=== PATIENT | male | born 1960 | race Caucasian/White ===

== ENCOUNTER 2020-06-30 13:03 | Outpatient (REF) | payer MEDICARE, MEDICAID, SELFPAY | END 2020-06-30 13:04 | disposition home or self-care (01) | LOC: HO.HMGCLDS 13:03 | PROVIDERS: PCP Internal Medicine; Visit Provider Internal Medicine | DX: Z20.828 Contact with and (suspected) exposure to other viral communicable diseases (principal) | CPT/HCPCS: C9803; U0003 ==

== ENCOUNTER 2021-09-26 20:29 | Inpatient (IN) | payer OTHER, MEDICARE, MEDICAID, SELFPAY ==
--- NOTE | ~2021-09-26 | XR_ITS ---
EXAMINATION: XR CHEST CLINICAL INFORMATION: Line placement COMPARISON: None TECHNIQUE: Frontal view of the chest was obtained. XR/XR chest 1V FINDINGS/IMPRESSION: Left internal jugular central venous catheter terminates in the mid SVC near the superior cavoatrial junction. No pneumothorax. Normal heart size and pulmonary vascularity. Lungs are clear. No pleural effusion. No acute or suspicious osseous abnormalities.
--- NOTE | ~2021-09-26 | CT_ITS ---
EXAMINATION CT ABDOMEN/PELVIS WITHOUT AND WITH CONTRAST [GI BLEEDING STUDY] CLINICAL INFORMATION: Maroon stool COMPARISON: None. TECHNIQUE: Multidetector volumetric CT imaging of the abdomen and pelvis was performed proceeding the administration of intravenous contrast. Subsequently imaging of the abdomen and pelvis was performed after the administration of 80 mL Omnipaque 350 without immediate adverse reactions. Postcontrast images were acquired during the arterial and delayed phases. Coronal and sagittal reformats were reviewed. This CT examination was performed using dose optimization techniques as appropriate, variously including the following: *Automated exposure control *Adjustment of mA and/or kV according to patient size (this includes techniques or standardized protocols for targeted exams where dose is matched to indication/reason for exam; i.e. extremities or head) *Use of iterative reconstruction technique DLP: 1078 mGy-cm FINDINGS: IMAGED THORAX: Trace bilateral pleural effusions and accompanying pleural thickening and pleural parenchymal scarring versus atelectasis, likely chronic. Cardiomegaly. GASTROINTESTINAL: No source of active gastrointestinal bleeding is identified. A gastrostomy tube is present within the stomach. Circumferential edematous wall thickening of the distal esophagus suspected suggestive of esophagitis. Small and large bowel are unremarkable. Cecum present in the right upper quadrant. Normal appendix. HEPATOBILIARY: Liver normal in size, contour and morphology. No suspicious lesions. No intra or extrahepatic biliary dilation. Gallbladder unremarkable. PANCREAS: Fatty atrophy. No inflammation or mass. SPLEEN: Unremarkable. ADRENAL GLANDS: Unremarkable. KIDNEYS, URETERS AND BLADDER: Nephroureteral stent present within the right kidney. The stent enters the bladder anteriorly suggesting ureteral reimplantation. No hydronephrosis. No suspicious renal cysts or masses. Mild thickening of the right renal pelvic urothelium likely relates to chronic irritation from the indwelling nephroureteral stent. No urinary calculi. Diffuse mild bladder wall thickening likely relates to chronic detrussor hypertrophy. PELVIC VISCERA: Prostatomegaly. Seminal vesicles unremarkable. LYMPH NODES: No lymphadenopathy. PERITONEUM/BODY WALL: Unremarkable. VASCULAR STRUCTURES: Aorta is mildly atherosclerotic. No aneurysm. Patent vascular structures. OSSEOUS STRUCTURES: No acute or suspicious osseous abnormalities. Right bipolar hemiarthroplasty. 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 Chronic appearing compression fractures at T11, T12, L1, L2 and L5 with mild endplate compression deformities of the remaining imaged lumbar levels. The fracture at T12 resulting in 75% height loss anteriorly CT/CT gi bleed abd pel wo/w con IMPRESSION: * No site of active gastrointestinal bleeding is identified. * Gastrostomy tube appropriately positioned within the gastric antrum. * Findings suggestive of esophagitis. * Right nephroureteral stent with previous right ureteral reimplantation to the anterosuperior bladder. * Additional chronic findings as above.
[2021-09-26 20:41] VITALS: BP 117/49; BP 98/53; PULSE 68; PULSE 76; RESP 18; TEMP 36.7; O2SAT 100; O2SAT 99; BMI 20.2
--- NOTE | 2021-09-26 20:41 | ECG_ITS ---
Test Reason : GI BLEED Blood Pressure : / mmHG Vent. Rate : 074 BPM Atrial Rate : 074 BPM P-R Int : 132 ms QRS Dur : 076 ms QT Int : 400 ms P-R-T Axes : 065 056 088 degrees QTc Int : 444 ms Normal sinus rhythm T wave abnormality, consider anterior ischemia Abnormal ECG No previous ECGs available Referred By: Elba Harvey Electronically Signed By:ALEX NELSON MD
--- NOTE | 2021-09-26 21:01 | ED.GIBLEED ---
HPI - GI Bleed General Chief complaint: GI Bleed <Elba Harvey NP - Last Filed: 09/27/21 01:59> Stated complaint: GI BLEED? <Elba Harvey NP - Last Filed: 09/27/21 01:59> Time Seen by Provider: 09/26/21 20:38 <Elba Harvey NP - Last Filed: 09/27/21 01:59> Source: patient and EMS <Elba Harvey NP - Last Filed: 09/27/21 01:59> Mode of arrival: EMS <Elba Harvey NP - Last Filed: 09/27/21 01:59> Limitations: no limitations <Elba Harvey NP - Last Filed: 09/27/21 01:59> History of Present Illness HPI Narrative: 61-year-old male with a history of pulmonary fibrosis status post bilateral lung transplant greater than 10 years ago on tacrolimus/atovaquone/prednisone 5mg daily, pulmonary embolism on Eliquis, chronic kidney disease, tongue and throat cancer status post radiation with G-tube placement, hypothyroidisim here with complaints one episode of bloody stool just [employer] DES[employer]. Patient denies abdominal pain. Patient did have 1 episode of vomiting earlier today during his feeding via G-tube but denies any bloody or coffee-ground colored emesis. Patient denies any fevers or chills. Tells me that he felt like he needed to move his bowels and when he got to the bathroom he realized he had been incontinent of a large amount of bloody stool. He felt very dizzy and lightheaded and called his to help him lower himself to the ground. EMS was called shortly after. Of note patient was recently discharged from [facility] on September 07 after being admitted for 5 weeks for radiation therapy, s/p GT placement d/t malnutrition, feeding difficulties. <Elba Harvey NP - Last Filed: 09/27/21 01:59> Related Data Home medications: Home Medications Medication Instructions Recorded Confirmed apixaban 5 mg tablet (Eliquis) 1 tab PO BID 09/26/21 09/27/21 calcitriol 0.25 mcg capsule 1 cap PO DAILY 09/26/21 09/27/21 clobetasol 0.05 % topical ointment 1 applic TOPICAL BID 09/26/21 09/27/21 famotidine 20 mg tablet 1 tab PO DAILY 09/26/21 09/27/21 levothyroxine 112 mcg tablet 1 tab PO DAILY 09/26/21 09/27/21 lorazepam 0.5 mg tablet 1 tab PO DAILY 09/26/21 09/27/21 prednisone 5 mg tablet 1 tab PO DAILY 09/26/21 09/27/21 tacrolimus 1 mg capsule, 1 cap PO Q8-10H 09/26/21 09/27/21 immediate-release <Elba Harvey NP - Last Filed: 09/27/21 01:59> Allergies/Adverse reactions: Allergies Allergy/AdvReac Type Severity Reaction Status Date / Time meperidine [From DEMEROL] Allergy Intermediate HEADACHES Unverified 09/26/21 21:55 <Elba Harvey NP - Last Filed: 09/27/21 01:59> Review of Systems Review of Systems: Yes all other systems are reviewed and are negative <Elba Harvey NP - Last Filed: 09/27/21 01:59> Constitutional: Constitutional: Reports no additional constitutional complaints, Denies body ache(s), Denies chills, Denies fever(s), Denies headache(s) and Denies weakness <Elba Harvey NP - Last Filed: 09/27/21 01:59> Eyes: Eyes: Reports no additional eye complaints and Denies change in vision <Elba Harvey NP - Last Filed: 09/27/21 01:59> ENT: Reports system reviewed and no additional complaints, except as documented, Denies dizziness, Denies headache(s), Denies nasal congestion, Denies nasal discharge and Denies neck pain <Elba Harvey NP - Last Filed: 09/27/21 01:59> Cardiovascular: Cardiovascular: Reports no additional cardiovascular complaints, Denies chest pain, Denies leg edema and Denies dyspnea <Elba Harvey NP - Last Filed: 09/27/21 01:59> Respiratory: Respiratory: Reports no additional respiratory complaints, Denies cough and Denies dyspnea <Elba Harvey NP - Last Filed: 09/27/21 01:59> Gastrointestinal: Gastrointestinal: Reports no additional gastrointestinal complaints, Denies abdominal pain, Denies diarrhea, Denies nausea and Denies vomiting <Elba Harvey NP - Last Filed: 09/27/21 01:59> Genitourinary: Genitourinary: Denies urinary incontinence <Elba Harvey NP - Last Filed: 09/27/21 01:59> Musculoskeletal: Musculoskeletal: Reports no additional musculoskeletal complaints, Denies back pain, Denies arthralgias, Denies joint swelling, Denies neck pain, Denies numbness and Denies tingling <Elba Harvey NP - Last Filed: 09/27/21 01:59> Integumentary/Breasts: Skin/Breast: Reports system reviewed and no additional complaints, except as docu and Denies rash <Elba Harvey NP - Last Filed: 09/27/21 01:59> Neurologic: Reports system reviewed and no additional complaints, except as documented, Denies Abnormal speech present, Denies dizziness, Denies headache(s), Denies numbness, Denies tingling and Denies weakness <Elba Harvey NP - Last Filed: 09/27/21 01:59> [facility] Past Medical History Attestation statement: The following information was validated with the patient. <Elba Harvey NP - Last Filed: 09/27/21 01:59> Source: old records reviewed and nursing notes reviewed <Elba Harvey NP - Last Filed: 09/27/21 01:59> Social History Social History: Social History Advance Directives: No Advance Directives Information Provided: No <STEPHANIE Emanuel Last Filed: 09/27/21 01:59> Physical Exam Vital Signs: Vital Signs: Last Vital Signs Temp 97.3 F 09/27/21 00:30 Pulse 77 09/27/21 00:50 Resp 16 09/27/21 00:50 BP 103/45 L 09/27/21 00:50 Pulse Ox 100 09/27/21 00:50 BMI result Body Mass Index 20.2 <Elba Harvey NP - Last Filed: 09/27/21 01:59> Vital Signs: Last Vital Signs Temp 97.3 F 09/27/21 00:30 Pulse 77 09/27/21 00:50 Resp 16 09/27/21 00:50 BP 103/45 L 09/27/21 00:50 Pulse Ox 100 09/27/21 00:50 BMI result Body Mass Index 20.2 <Colton Ac MD - Last Filed: 09/27/21 01:44> Const: General: cooperative, healthy appearing, comfortable and no acute distress <Elba Harvey NP - Last Filed: 09/27/21 01:59> Orientation/consciousness: patient oriented x3 <Elba Harvey NP - Last Filed: 09/27/21 01:59> Limitations: no limitations <Elba Harvey NP - Last Filed: 09/27/21 01:59> HENMT: Head: Yes normal to inspection <Elba Harvey NP - Last Filed: 09/27/21 01:59> Ears: hearing grossly normal bilaterally <Elba Harvey NP - Last Filed: 09/27/21 01:59> General nose exam: Normal external nose present <Elba Harvey NP - Last Filed: 09/27/21 01:59> Face and sinus: Yes normal facial exam <Elba Harvey NP - Last Filed: 09/27/21 01:59> Mouth: Normal oral and palatal mucosa present <Elba Harvey NP - Last Filed: 09/27/21 01:59> Throat: Yes posterior oropharynx normal <Elba Harvey NP - Last Filed: 09/27/21 01:59> Eyes: General: appearance normal, both eyes and all related structures <Elba Harvey NP - Last Filed: 09/27/21 01:59> Pupils: Equal, round and reactive pupils present <Elba Harvey NP - Last Filed: 09/27/21 01:59> Neck: Neck: Yes normal visual inspection <Elba Harvey NP - Last Filed: 09/27/21 01:59> Chest: Chest palpation & inspection: normal inspection of the chest <Elba Harvey NP - Last Filed: 09/27/21 01:59> Resp: Effort & Inspection: normal respiratory effort <Elba Harvey NP - Last Filed: 09/27/21 01:59> Auscultation: clear to auscultation bilaterally <Elba Harvey NP - Last Filed: 09/27/21 01:59> Cardio: Rate: regular rate <Elba Harvey NP - Last Filed: 09/27/21 01:59> Rhythm: regular rhythm <Elba Harvey NP - Last Filed: 09/27/21 01:59> Peripheral pulses: Peripheral pulses 2+ throughout <Elba Harvey NP - Last Filed: 09/27/21 01:59> GI: Other: GT left side of abdomen <Elba Harvey NP - Last Filed: 09/27/21 01:59> Inspection: Yes normal to inspection <Elba Harvey NP - Last Filed: 09/27/21 01:59> Palpation (GI): Soft to palpation and nontender <Elba Harvey NP - Last Filed: 09/27/21 01:59> Auscultation: normal bowel sounds <Elba Harvey NP - Last Filed: 09/27/21 01:59> Rectal Exam - Male: Yes normal sphincter tone and Yes heme positive stool (+maroon ) <Elba Harvey NP - Last Filed: 09/27/21 01:59> Back/Spine/Pelvis: Thoracic/Lumbar Spine: thoracic and lumbar spine normal to inspection <Elba Harvey NP - Last Filed: 09/27/21 01:59> Skin: General skin exam: no rashes or lesions noted <Elba Harvey NP - Last Filed: 09/27/21 01:59> Neuro: General: patient oriented x3, no focal motor deficits and normal sensation to monofilament <Elba Harvey NP - Last Filed: 09/27/21 01:59> Cranial nerves: Yes Equal, round and reactive pupils present <Elba Harvey NP - Last Filed: 09/27/21 01:59> Cognition (Neuro): normal cognition <Elba Harvey NP - Last Filed: 09/27/21 01:59> Speech: No Abnormal speech present <Elba Harvey NP - Last Filed: 09/27/21 01:59> Gait exam (Neuro): Normal gait present <Elba Harvey NP - Last Filed: 09/27/21 01:59> Motor exam (neuro): 5/5 motor strength present throughout <Elba Harvey NP - Last Filed: 09/27/21 01:59> Extrem: General: Yes normal to inspection <Elba Harvey NP - Last Filed: 09/27/21 01:59> Course Course Course Narrative: 61 year-old male with a history of pulmonary fibrosis status post bilateral lung transplant greater than 10 years ago on tacrolimus/atovaquone/prednisone 5mg daily, pulmonary embolism on Eliquis, chronic kidney disease, tongue and throat cancer status ([facility]) post radiation with G-tube placement, hypothyroidisim here 1 episode of large bloody stool prior to arrival with dizziness. On arrival the patient has maroon stool on rectal exam. He has no abdominal pain or vomiting. No fever. Blood pressure is 98/53. This is secondary to blood loss and not from infection. Normal blood pressure is around 100 systolic per family. Will need labs including type and screen, EKG, occult stool and GI bleed studies. Concern for GI bleed 2199-patient is difficult to obtain IV access. He has 1 small peripheral line left hand placed by nursing. With assistance by Dr Landaverde we were able to place a 18 gauge IV in the right AC and attain additional labs. Hemoglobin 8.7. No additional episodes of rectal bleeding. Will plan for repeat. 0-repeat hgb 7.5. Patient has had a 1.5 decrease x2 hrs. Ordered 2 units of PRBCs. I consented the patient's for this. 0-I was called to CT scan patient the patient vomited 200 mL of bloody emesis. Ordered Protonix IV P, gtt. Ordered Kcentra. Call out to GI to discuss. 0-Spoke to Dr Rueda. Recommended stabilization with blood transfusion. If continued episodes of vomiting call him back but at this time he does not feel the patient needs any emergent endoscopy. 2345-Peripheral IV infiltrated. Unable to perform CT scan d/t lack of IV contrast. Will hold test. Pulled out for central line placement. I discussed this with the patient and his who consented. I spoke to the at length. The patient was recently admitted to [facility] for 4-5 weeks and received intense radiation treatment. He is at this time is done with radiation treatment. Chemotherapy was held as they did not feel that the patient would survive treatment. He has a PET scan scheduled for next Tuesday and a meeting with his oncologist November 20 discuss goals of care. At this time patient is full code 0030-L IJ TLC placed by Dr Landaverde. Gastric lavage done at bedside via GT with no active bleeding noted. Will re-attempt CT. No further episodes of bloody stools. Will speak to patient's oncologist at [facility]. 0040-Spoke to patient's licensed nurse practitioner oncologist at [facility] ([facility]). No need for transfer 0100-Patient vomiting 200ml brown emesis. Repeat hemoglobin pending. Will update GI. Anticipate ICU admission. 0115-Spoke to Dr Rueda. Does not feel patient needs emergent endoscopy tonight and recommends treating with PRBC, vitamin K, antiemetic, protonix. Lengthy discussion with family ( Neelam) and patient at the bedside. Prior to this the patient has been a full code. The tells me that their oncologist had several conversations with them about this but they have not made any decisions to change his code status. After discussion with the family and the patient decision was made to change his code status to DNR and DNI. They would like all other treatment for him. 0130-spoke to Dr. Mcnair from ICU who accepted patient. <Elba Harvey NP - Last Filed: 09/27/21 01:59> MDM - GI Bleed [facility] Narrative Medical decision making narrative: GI bleed <Elba Harvey NP - Last Filed: 09/27/21 01:59> Medical Records Attestation: I reviewed the patient's medical records. <Elba Harvey NP - Last Filed: 09/27/21 01:59> Lab Data Attestation: I reviewed the patient's lab results. <Elba Harvey, STEPHANIE - Last Filed: 09/27/21 01:59> Result diagrams: : 09/27/21 01:10 09/26/21 22:36 <Elba Harvey, OIL HEATER OPERATOR - Last Filed: 09/27/21 01:59> Labs: Lab Results 09/26/21 09/26/21 09/26/21 Range/Units 21:10 21:11 21:11 WBC 4.4 L (4.8-10.8) X10*3/uL RBC 2.42 L (4.60-5.80) X10*6/uL Hgb 8.7 L (14.0-18.0) g/dl Hct 25.8 L (42.0-52.0) % MCV 106.6 H (80.0-98.0) fL MCH 36.0 H (27.0-33.0) pg MCHC 33.7 (31.0-36.0) g/dl RDW 16.8 H (11.0-16.0) % Plt Count 155 L (160-400) X10*3/uL MPV 10.6 (9.4-12.4) fL Immature Gran % (Auto) 0.5 H (0.0-0.4) % Neut % (Auto) 75.8 H (45-73) % Lymph % (Auto) 9.9 L (20-40) % Mcminn % (Auto) 10.8 (2-11) % Eos % (Auto) 2.5 (0-4) % Baso % (Auto) 0.5 (0-2) % Lymph # (Auto) 0.4 L (1.2-4.9) X10*3/uL Mcminn # (Auto) 0.5 (0.1-1.2) X10*3/uL Eos # (Auto) 0.1 (0.0-0.4) X10*3/uL Baso # (Auto) 0.0 (0.0-0.2) X10*3/uL Abs Immat Gran (auto) 0.02 (0.00-0.03) X10*3/uL Absolute Neuts (auto) 3.4 (2.0-8.3) x10*3/uL Absolute Nucleated RBC 0.000 (0.0-0.012) X10*3/uL Nucleated RBC % (auto) 0.0 (0.0-0.2) /100WBC PT (9.9-13.0) SEC INR (0.9-1.1) Sodium (135-145) mmol/L Potassium (3.3-5.1) mmol/L Chloride (96-108) mmol/L Carbon Dioxide (22-29) mmol/L Anion Gap (12-20) BUN (9-16) mg/dL Creatinine (0.5-1.4) mg/dL Estim Creat Clear Calc Estimated GFR Random Glucose (60-115) mg/dL Lactic Acid 3.8 H* (0.5-2.0) mmol/L Lactic Acid F/U @ 2Hr (0.5-2.0) mmol/L Calcium (8.4-10.2) mg/dL Magnesium (1.6-2.6) mg/dL Total Bilirubin (0.0-1.0) mg/dL Direct Bilirubin (0.0-0.5) mg/dL AST (5-37) U/L ALT (0-40) U/L Alkaline Phosphatase (39-117) U/L Total Protein (6.5-8.0) g/dL Albumin (3.5-5.0) g/dL Stool Occult Blood (NEGATIVE) COVID-19 ([facility]) Negative (Negative) COVID-19 Clin Com See Note Blood Type Antibody Screen Crossmatch 09/26/21 09/26/21 09/26/21 Range/Units 21:11 21:48 22:36 WBC (4.8-10.8) X10*3/uL RBC (4.60-5.80) X10*6/uL Hgb (14.0-18.0) g/dl Hct (42.0-52.0) % MCV (80.0-98.0) fL MCH (27.0-33.0) pg MCHC (31.0-36.0) g/dl RDW (11.0-16.0) % Plt Count (160-400) X10*3/uL MPV (9.4-12.4) fL Immature Gran % (Auto) (0.0-0.4) % Neut % (Auto) (45-73) % Lymph % (Auto) (20-40) % Mcminn % (Auto) (2-11) % Eos % (Auto) (0-4) % Baso % (Auto) (0-2) % Lymph # (Auto) (1.2-4.9) X10*3/uL Mcminn # (Auto) (0.1-1.2) X10*3/uL Eos # (Auto) (0.0-0.4) X10*3/uL Baso # (Auto) (0.0-0.2) X10*3/uL Abs Immat Gran (auto) (0.00-0.03) X10*3/uL Absolute Neuts (auto) (2.0-8.3) x10*3/uL Absolute Nucleated RBC (0.0-0.012) X10*3/uL Nucleated RBC % (auto) (0.0-0.2) /100WBC PT 16.9 H (9.9-13.0) SEC INR 1.5 H (0.9-1.1) Sodium 137 (135-145) mmol/L Potassium 4.5 (3.3-5.1) mmol/L Chloride 104 (96-108) mmol/L Carbon Dioxide 28 (22-29) mmol/L Anion Gap 10 L (12-20) BUN 43 H (9-16) mg/dL Creatinine 1.33 (0.5-1.4) mg/dL Estim Creat Clear Calc 47.2 Estimated GFR 54 Random Glucose 91 (60-115) mg/dL Lactic Acid (0.5-2.0) mmol/L Lactic Acid F/U @ 2Hr (0.5-2.0) mmol/L Calcium 8.1 L (8.4-10.2) mg/dL Magnesium 1.7 (1.6-2.6) mg/dL Total Bilirubin 0.4 (0.0-1.0) mg/dL Direct Bilirubin 0.2 (0.0-0.5) mg/dL AST 13 (5-37) U/L ALT 9 (0-40) U/L Alkaline Phosphatase 105 (39-117) U/L Total Protein 5.3 L (6.5-8.0) g/dL Albumin 2.6 L (3.5-5.0) g/dL Stool Occult Blood POSITIVE (NEGATIVE) COVID-19 ([facility]) (Negative) COVID-19 Clin Com Blood Type Antibody Screen Crossmatch 09/26/21 09/26/21 09/27/21 Range/Units 23:08 23:09 01:10 WBC 5.6 (4.8-10.8) X10*3/uL RBC 2.10 L (4.60-5.80) X10*6/uL Hgb 7.5 L (14.0-18.0) g/dl Hct 21.8 L (42.0-52.0) % MCV 103.8 H (80.0-98.0) fL MCH 35.7 H (27.0-33.0) pg MCHC 34.4 (31.0-36.0) g/dl RDW 16.6 H (11.0-16.0) % Plt Count 153 L (160-400) X10*3/uL MPV 10.8 (9.4-12.4) fL Immature Gran % (Auto) 0.5 H (0.0-0.4) % Neut % (Auto) 73.5 H (45-73) % Lymph % (Auto) 9.8 L (20-40) % Mcminn % (Auto) 13.7 H (2-11) % Eos % (Auto) 2.3 (0-4) % Baso % (Auto) 0.2 (0-2) % Lymph # (Auto) 0.6 L (1.2-4.9) X10*3/uL Mcminn # (Auto) 0.8 (0.1-1.2) X10*3/uL Eos # (Auto) 0.1 (0.0-0.4) X10*3/uL Baso # (Auto) 0.0 (0.0-0.2) X10*3/uL Abs Immat Gran (auto) 0.03 (0.00-0.03) X10*3/uL Absolute Neuts (auto) 4.1 (2.0-8.3) x10*3/uL Absolute Nucleated RBC 0.000 (0.0-0.012) X10*3/uL Nucleated RBC % (auto) 0.0 (0.0-0.2) /100WBC PT (9.9-13.0) SEC INR (0.9-1.1) Sodium (135-145) mmol/L Potassium (3.3-5.1) mmol/L Chloride (96-108) mmol/L Carbon Dioxide (22-29) mmol/L Anion Gap (12-20) BUN (9-16) mg/dL Creatinine (0.5-1.4) mg/dL Estim Creat Clear Calc Estimated GFR Random Glucose (60-115) mg/dL Lactic Acid (0.5-2.0) mmol/L Lactic Acid F/U @ 2Hr 2.5 H* (0.5-2.0) mmol/L Calcium (8.4-10.2) mg/dL Magnesium (1.6-2.6) mg/dL Total Bilirubin (0.0-1.0) mg/dL Direct Bilirubin (0.0-0.5) mg/dL AST (5-37) U/L ALT (0-40) U/L Alkaline Phosphatase (39-117) U/L Total Protein (6.5-8.0) g/dL Albumin (3.5-5.0) g/dL Stool Occult Blood (NEGATIVE) COVID-19 ([facility]) (Negative) COVID-19 Clin Com Blood Type A Positive Antibody Screen NEGATIVE Crossmatch See Detail 09/27/21 09/27/21 Range/Units 01:10 01:10 WBC 5.7 (4.8-10.8) X10*3/uL RBC 2.40 L (4.60-5.80) X10*6/uL Hgb 8.3 L (14.0-18.0) g/dl Hct 24.3 L (42.0-52.0) % MCV 101.3 H (80.0-98.0) fL MCH 34.6 H (27.0-33.0) pg MCHC 34.2 (31.0-36.0) g/dl RDW 16.8 H (11.0-16.0) % Plt Count 124 L (160-400) X10*3/uL MPV 10.2 (9.4-12.4) fL Immature Gran % (Auto) 0.5 H (0.0-0.4) % Neut % (Auto) 73.6 H (45-73) % Lymph % (Auto) 9.9 L (20-40) % Mcminn % (Auto) 13.7 H (2-11) % Eos % (Auto) 1.9 (0-4) % Baso % (Auto) 0.4 (0-2) % Lymph # (Auto) 0.6 L (1.2-4.9) X10*3/uL Mcminn # (Auto) 0.8 (0.1-1.2) X10*3/uL Eos # (Auto) 0.1 (0.0-0.4) X10*3/uL Baso # (Auto) 0.0 (0.0-0.2) X10*3/uL Abs Immat Gran (auto) 0.03 (0.00-0.03) X10*3/uL Absolute Neuts (auto) 4.2 (2.0-8.3) x10*3/uL Absolute Nucleated RBC 0.000 (0.0-0.012) X10*3/uL Nucleated RBC % (auto) 0.0 (0.0-0.2) /100WBC PT 14.0 H (9.9-13.0) SEC INR 1.2 H (0.9-1.1) Sodium (135-145) mmol/L Potassium (3.3-5.1) mmol/L Chloride (96-108) mmol/L Carbon Dioxide (22-29) mmol/L Anion Gap (12-20) BUN (9-16) mg/dL Creatinine (0.5-1.4) mg/dL Estim Creat Clear Calc Estimated GFR Random Glucose (60-115) mg/dL Lactic Acid (0.5-2.0) mmol/L Lactic Acid F/U @ 2Hr (0.5-2.0) mmol/L Calcium (8.4-10.2) mg/dL Magnesium (1.6-2.6) mg/dL Total Bilirubin (0.0-1.0) mg/dL Direct Bilirubin (0.0-0.5) mg/dL AST (5-37) U/L ALT (0-40) U/L Alkaline Phosphatase (39-117) U/L Total Protein (6.5-8.0) g/dL Albumin (3.5-5.0) g/dL Stool Occult Blood (NEGATIVE) COVID-19 ([facility]) (Negative) COVID-19 Clin Com Blood Type Antibody Screen Crossmatch <Elba Harvey NP - Last Filed: 09/27/21 01:59> Lab Results 09/26/21 09/26/21 09/26/21 Range/Units 21:10 21:11 21:11 WBC 4.4 L (4.8-10.8) X10*3/uL RBC 2.42 L (4.60-5.80) X10*6/uL Hgb 8.7 L (14.0-18.0) g/dl Hct 25.8 L (42.0-52.0) % MCV 106.6 H (80.0-98.0) fL MCH 36.0 H (27.0-33.0) pg MCHC 33.7 (31.0-36.0) g/dl RDW 16.8 H (11.0-16.0) % Plt Count 155 L (160-400) X10*3/uL MPV 10.6 (9.4-12.4) fL Immature Gran % (Auto) 0.5 H (0.0-0.4) % Neut % (Auto) 75.8 H (45-73) % Lymph % (Auto) 9.9 L (20-40) % Mcminn % (Auto) 10.8 (2-11) % Eos % (Auto) 2.5 (0-4) % Baso % (Auto) 0.5 (0-2) % Lymph # (Auto) 0.4 L (1.2-4.9) X10*3/uL Mcminn # (Auto) 0.5 (0.1-1.2) X10*3/uL Eos # (Auto) 0.1 (0.0-0.4) X10*3/uL Baso # (Auto) 0.0 (0.0-0.2) X10*3/uL Abs Immat Gran (auto) 0.02 (0.00-0.03) X10*3/uL Absolute Neuts (auto) 3.4 (2.0-8.3) x10*3/uL Absolute Nucleated RBC 0.000 (0.0-0.012) X10*3/uL Nucleated RBC % (auto) 0.0 (0.0-0.2) /100WBC PT (9.9-13.0) SEC INR (0.9-1.1) Sodium (135-145) mmol/L Potassium (3.3-5.1) mmol/L Chloride (96-108) mmol/L Carbon Dioxide (22-29) mmol/L Anion Gap (12-20) BUN (9-16) mg/dL Creatinine (0.5-1.4) mg/dL Estim Creat Clear Calc Estimated GFR Random Glucose (60-115) mg/dL Lactic Acid 3.8 H* (0.5-2.0) mmol/L Lactic Acid F/U @ 2Hr (0.5-2.0) mmol/L Calcium (8.4-10.2) mg/dL Magnesium (1.6-2.6) mg/dL Total Bilirubin (0.0-1.0) mg/dL Direct Bilirubin (0.0-0.5) mg/dL AST (5-37) U/L ALT (0-40) U/L Alkaline Phosphatase (39-117) U/L Total Protein (6.5-8.0) g/dL Albumin (3.5-5.0) g/dL Stool Occult Blood (NEGATIVE) COVID-19 ([facility]) Negative (Negative) COVID-19 Clin Com See Note Blood Type Antibody Screen Crossmatch 09/26/21 09/26/21 09/26/21 Range/Units 21:11 21:48 22:36 WBC (4.8-10.8) X10*3/uL RBC (4.60-5.80) X10*6/uL Hgb (14.0-18.0) g/dl Hct (42.0-52.0) % MCV (80.0-98.0) fL MCH (27.0-33.0) pg MCHC (31.0-36.0) g/dl RDW (11.0-16.0) % Plt Count (160-400) X10*3/uL MPV (9.4-12.4) fL Immature Gran % (Auto) (0.0-0.4) % Neut % (Auto) (45-73) % Lymph % (Auto) (20-40) % Mcminn % (Auto) (2-11) % Eos % (Auto) (0-4) % Baso % (Auto) (0-2) % Lymph # (Auto) (1.2-4.9) X10*3/uL Mcminn # (Auto) (0.1-1.2) X10*3/uL Eos # (Auto) (0.0-0.4) X10*3/uL Baso # (Auto) (0.0-0.2) X10*3/uL Abs Immat Gran (auto) (0.00-0.03) X10*3/uL Absolute Neuts (auto) (2.0-8.3) x10*3/uL Absolute Nucleated RBC (0.0-0.012) X10*3/uL Nucleated RBC % (auto) (0.0-0.2) /100WBC PT 16.9 H (9.9-13.0) SEC INR 1.5 H (0.9-1.1) Sodium 137 (135-145) mmol/L Potassium 4.5 (3.3-5.1) mmol/L Chloride 104 (96-108) mmol/L Carbon Dioxide 28 (22-29) mmol/L Anion Gap 10 L (12-20) BUN 43 H (9-16) mg/dL Creatinine 1.33 (0.5-1.4) mg/dL Estim Creat Clear Calc 47.2 Estimated GFR 54 Random Glucose 91 (60-115) mg/dL Lactic Acid (0.5-2.0) mmol/L Lactic Acid F/U @ 2Hr (0.5-2.0) mmol/L Calcium 8.1 L (8.4-10.2) mg/dL Magnesium 1.7 (1.6-2.6) mg/dL Total Bilirubin 0.4 (0.0-1.0) mg/dL Direct Bilirubin 0.2 (0.0-0.5) mg/dL AST 13 (5-37) U/L ALT 9 (0-40) U/L Alkaline Phosphatase 105 (39-117) U/L Total Protein 5.3 L (6.5-8.0) g/dL Albumin 2.6 L (3.5-5.0) g/dL Stool Occult Blood POSITIVE (NEGATIVE) COVID-19 ([facility]) (Negative) COVID-19 Clin Com Blood Type Antibody Screen Crossmatch 09/26/21 09/26/21 09/27/21 Range/Units 23:08 23:09 01:10 WBC 5.6 (4.8-10.8) X10*3/uL RBC 2.10 L (4.60-5.80) X10*6/uL Hgb 7.5 L (14.0-18.0) g/dl Hct 21.8 L (42.0-52.0) % MCV 103.8 H (80.0-98.0) fL MCH 35.7 H (27.0-33.0) pg MCHC 34.4 (31.0-36.0) g/dl RDW 16.6 H (11.0-16.0) % Plt Count 153 L (160-400) X10*3/uL MPV 10.8 (9.4-12.4) fL Immature Gran % (Auto) 0.5 H (0.0-0.4) % Neut % (Auto) 73.5 H (45-73) % Lymph % (Auto) 9.8 L (20-40) % Mcminn % (Auto) 13.7 H (2-11) % Eos % (Auto) 2.3 (0-4) % Baso % (Auto) 0.2 (0-2) % Lymph # (Auto) 0.6 L (1.2-4.9) X10*3/uL Mcminn # (Auto) 0.8 (0.1-1.2) X10*3/uL Eos # (Auto) 0.1 (0.0-0.4) X10*3/uL Baso # (Auto) 0.0 (0.0-0.2) X10*3/uL Abs Immat Gran (auto) 0.03 (0.00-0.03) X10*3/uL Absolute Neuts (auto) 4.1 (2.0-8.3) x10*3/uL Absolute Nucleated RBC 0.000 (0.0-0.012) X10*3/uL Nucleated RBC % (auto) 0.0 (0.0-0.2) /100WBC PT (9.9-13.0) SEC INR (0.9-1.1) Sodium (135-145) mmol/L Potassium (3.3-5.1) mmol/L Chloride (96-108) mmol/L Carbon Dioxide (22-29) mmol/L Anion Gap (12-20) BUN (9-16) mg/dL Creatinine (0.5-1.4) mg/dL Estim Creat Clear Calc Estimated GFR Random Glucose (60-115) mg/dL Lactic Acid (0.5-2.0) mmol/L Lactic Acid F/U @ 2Hr 2.5 H* (0.5-2.0) mmol/L Calcium (8.4-10.2) mg/dL Magnesium (1.6-2.6) mg/dL Total Bilirubin (0.0-1.0) mg/dL Direct Bilirubin (0.0-0.5) mg/dL AST (5-37) U/L ALT (0-40) U/L Alkaline Phosphatase (39-117) U/L Total Protein (6.5-8.0) g/dL Albumin (3.5-5.0) g/dL Stool Occult Blood (NEGATIVE) COVID-19 ([facility]) (Negative) COVID-19 Clin Com Blood Type A Positive Antibody Screen NEGATIVE Crossmatch See Detail 09/27/21 09/27/21 Range/Units 01:10 01:10 WBC 5.7 (4.8-10.8) X10*3/uL RBC 2.40 L (4.60-5.80) X10*6/uL Hgb 8.3 L (14.0-18.0) g/dl Hct 24.3 L (42.0-52.0) % MCV 101.3 H (80.0-98.0) fL MCH 34.6 H (27.0-33.0) pg MCHC 34.2 (31.0-36.0) g/dl RDW 16.8 H (11.0-16.0) % Plt Count 124 L (160-400) X10*3/uL MPV 10.2 (9.4-12.4) fL Immature Gran % (Auto) 0.5 H (0.0-0.4) % Neut % (Auto) 73.6 H (45-73) % Lymph % (Auto) 9.9 L (20-40) % Mcminn % (Auto) 13.7 H (2-11) % Eos % (Auto) 1.9 (0-4) % Baso % (Auto) 0.4 (0-2) % Lymph # (Auto) 0.6 L (1.2-4.9) X10*3/uL Mcminn # (Auto) 0.8 (0.1-1.2) X10*3/uL Eos # (Auto) 0.1 (0.0-0.4) X10*3/uL Baso # (Auto) 0.0 (0.0-0.2) X10*3/uL Abs Immat Gran (auto) 0.03 (0.00-0.03) X10*3/uL Absolute Neuts (auto) 4.2 (2.0-8.3) x10*3/uL Absolute Nucleated RBC 0.000 (0.0-0.012) X10*3/uL Nucleated RBC % (auto) 0.0 (0.0-0.2) /100WBC PT 14.0 H (9.9-13.0) SEC INR 1.2 H (0.9-1.1) Sodium (135-145) mmol/L Potassium (3.3-5.1) mmol/L Chloride (96-108) mmol/L Carbon Dioxide (22-29) mmol/L Anion Gap (12-20) BUN (9-16) mg/dL Creatinine (0.5-1.4) mg/dL Estim Creat Clear Calc Estimated GFR Random Glucose (60-115) mg/dL Lactic Acid (0.5-2.0) mmol/L Lactic Acid F/U @ 2Hr (0.5-2.0) mmol/L Calcium (8.4-10.2) mg/dL Magnesium (1.6-2.6) mg/dL Total Bilirubin (0.0-1.0) mg/dL Direct Bilirubin (0.0-0.5) mg/dL AST (5-37) U/L ALT (0-40) U/L Alkaline Phosphatase (39-117) U/L Total Protein (6.5-8.0) g/dL Albumin (3.5-5.0) g/dL Stool Occult Blood (NEGATIVE) COVID-19 (ABDON) (Negative) COVID-19 Clin Com Blood Type Antibody Screen Crossmatch <Colton Ac MD - Last Filed: 09/27/21 01:44> Imaging Data Chest x-ray: Attestation: I personally reviewed and interpreted this imaging study as follows: <Elba Harvey NP - Last Filed: 09/27/21 01:59> Radiologist's impression: EXAMINATION: XR CHEST CLINICAL INFORMATION: Line placement COMPARISON: None TECHNIQUE: Frontal view of the chest was obtained. XR/XR chest 1V FINDINGS/IMPRESSION: Left internal jugular central venous catheter terminates in the mid SVC near the superior cavoatrial junction. No pneumothorax. Normal heart size and pulmonary vascularity. Lungs are clear. No pleural effusion. No acute or suspicious osseous abnormalities. ? <Elba Harvey NP - Last Filed: 09/27/21 01:59> ECG Data Attestation: I personally reviewed and interpreted this ECG as follows: <Elba Harvey NP - Last Filed: 09/27/21 01:59> ECG interpretation date: 09/26/21 <Elba Harvey NP - Last Filed: 09/27/21 01:59> ECG interpretation time: 21:27 <Elba Harvey NP - Last Filed: 09/27/21 01:59> Interpretation: Normal sinus rhythm with a rate of 74, normal DC, normal QRS, normal QT <Elba Harvey NP - Last Filed: 09/27/21 01:59> Procedures Central Line Placement Left IJ: Time Out Performed: Yes <MD Donald Flaherty Last Filed: 09/27/21 01:44> Patient Placed on Monitor/Pulse Ox: Yes <Colton Ac MD - Last Filed: 09/27/21 01:44> MD Prep: mask, gown and gloves <Colton Ac MD - Last Filed: 09/27/21 01:44> Central Line Prep: Chlorhexidine scrub <Colton Ac MD - Last Filed: 09/27/21 01:44> Local Anesthetic: lidocaine 2% <Colton Ac MD - Last Filed: 09/27/21 01:44> Amount of anesthesia used (mL): 4 <Colton Ac MD - Last Filed: 09/27/21 01:44> Ultrasound Used for Placement: Yes <Colton Ac MD - Last Filed: 09/27/21 01:44> Central Line Lumen Inserted: triple <Colton Ac MD - Last Filed: 09/27/21 01:44> Post Procedure: sutured in place, good blood return, all ports aspirated, flushed, capped and sterile dressing applied <Colton Ac MD - Last Filed: 09/27/21 01:44> Post Procedure X-Ray: tip of catheter in good position and no pneumothorax seen <Colton Ac MD - Last Filed: 09/27/21 01:44> Patient Tolerated Procedure: well <Colton Ac MD - Last Filed: 09/27/21 01:44> Complications: none <Colton Ac MD - Last Filed: 09/27/21 01:44> EJ/Peripheral Line Arm R: Time Out Performed: No <Elba Harvey NP - Last Filed: 09/27/21 01:59> Skin Cleansed in Sterile Fashion: Yes <Elba Harvey NP - Last Filed: 09/27/21 01:59> Size (gauge): 18 <Elba Harvey NP - Last Filed: 09/27/21 01:59> IV Secured and Dressing Applied: Yes <Elba Harvey NP - Last Filed: 09/27/21 01:59> Patient Tolerated Procedure: well and no complications <Elba Harvey NP - Last Filed: 09/27/21 01:59> Additional Comments: Performed by Dr. Landaverde <Elba Harvey NP - Last Filed: 09/27/21 01:59> Critical Care Time Critical Care Time Critical Care Time: Yes <Elba Harvey NP - Last Filed: 09/27/21 01:59> Total Critical Care Time: 120 <Elba Harvey NP - Last Filed: 09/27/21 01:59> Attestation: Discussion with specialists (GI)-2 phone calls, discussion with imcu specialist for admission, discussion with family and patient about goals of care (>45 minutes), central line placement, multiple re-evaluations for hemodynamics. Active bleeding requiring blood transfusion <Elba Harvey NP - Last Filed: 09/27/21 01:59> Discharge Plan Discharge Clinical Impression: GIB (gastrointestinal bleeding) <Elba Harvey NP - Last Filed: 09/27/21 01:59> Patient Disposition: Admitted As Inpatient <Elba Harvey NP - Last Filed: 09/27/21 01:59>
[2021-09-26 21:18] LABS: MANUAL DIFF FLAG NO
[2021-09-26 21:20] LABS: Basophils Percent Auto 0.5 % (0-2); Eosinophils Absolute Auto 0.1 X10*3/uL (0.0-0.4); Eosinophils Percent Auto 2.5 % (0-4); Hematocrit 25.8 % (42.0-52.0); Hemoglobin 8.7 g/dl (14.0-18.0); Imm Gran Abs Auto 0.02 X10*3/uL (0.00-0.03); Imm Gran Pct Auto 0.5 % (0.0-0.4); Lymphocytes Absolute Auto 0.4 X10*3/uL (1.2-4.9); Lymphocytes Percent Auto 9.9 % (20-40); Mean Corpuscular HGB Conc 33.7 g/dl (31.0-36.0); Mean Corpuscular Volume 106.6 fL (80.0-98.0); Mean Platelet Volume 10.6 fL (9.4-12.4); Monocytes Absolute Auto 0.5 X10*3/uL (0.1-1.2); Monocytes Percent Auto 10.8 % (2-11); Neutrophils Absolute Auto 3.4 x10*3/uL (2.0-8.3); Neutrophils Percent Auto 75.8 % (45-73); OBS Int Ctl Valid YES; OBS1 POSITIVE (NEGATIVE); Platelet Count 155 X10*3/uL (160-400); Red Blood Count 2.42 X10*6/uL (4.60-5.80); Red Cell Distribution Width 16.8 % (11.0-16.0); White Blood Count 4.4 X10*3/uL (4.8-10.8)
[2021-09-26 21:34] LABS: COVID-19 Test Negative (Negative)
[2021-09-26 21:35] LABS: Lactic Acid 3.8 mmol/L (0.5-2.0)
[2021-09-26] MEDS: 0.9 % Sodium Chloride 500 ML 999 ML IV (21:56)
[2021-09-26 22:01] LABS: INTERNATIONAL NORM RATIO 1.5 (0.9-1.1); Prothrombin Time 16.9 SEC (9.9-13.0)
[2021-09-26 23:00] LABS: Alanine Aminotransferase 9 U/L (0-40); Albumin Level 2.6 g/dL (3.5-5.0); Alkaline Phosphatase 105 U/L (39-117); Anion Gap 10 (12-20); Aspartate Amino Transferase 13 U/L (5-37); Bilirubin Direct 0.2 mg/dL (0.0-0.5); Bilirubin Total 0.4 mg/dL (0.0-1.0); Blood Urea Nitrogen 43 mg/dL (9-16); Calcium 8.1 mg/dL (8.4-10.2); Carbon Dioxide 28 mmol/L (22-29); Chloride 104 mmol/L (96-108); Creatinine Clr Calc Pharmacy 47.2; Estimated Glomerular Filt Rate 54; Glucose Random 91 mg/dL (60-115); Magnesium 1.7 mg/dL (1.6-2.6); Potassium 4.5 mmol/L (3.3-5.1); Sodium 137 mmol/L (135-145); Total Protein 5.3 g/dL (6.5-8.0)
[2021-09-26 23:16] LABS: Reflex Lactate? Lactic Acid Added
[2021-09-26 23:16] LABS: Basophils Percent Auto 0.2 % (0-2); Eosinophils Absolute Auto 0.1 X10*3/uL (0.0-0.4); Mean Corpuscular Volume 103.8 fL (80.0-98.0); Mean Platelet Volume 10.8 fL (9.4-12.4); Monocytes Absolute Auto 0.8 X10*3/uL (0.1-1.2); PLT CLUMP 1; Red Cell Distribution Width 16.6 % (11.0-16.0); SCAN SMEAR FLAG 1
[2021-09-26 23:18] LABS: Eosinophils Percent Auto 2.3 % (0-4); Hematocrit 21.8 % (42.0-52.0); Hemoglobin 7.5 g/dl (14.0-18.0); Imm Gran Abs Auto 0.03 X10*3/uL (0.00-0.03); Imm Gran Pct Auto 0.5 % (0.0-0.4); Lymphocytes Absolute Auto 0.6 X10*3/uL (1.2-4.9); Lymphocytes Percent Auto 9.8 % (20-40); MANUAL DIFF FLAG NO; Mean Corpuscular HGB Conc 34.4 g/dl (31.0-36.0); Mean Corpuscular Hemoglobin 35.7 pg (27.0-33.0); Monocytes Percent Auto 13.7 % (2-11); Neutrophils Absolute Auto 4.1 x10*3/uL (2.0-8.3); Neutrophils Percent Auto 73.5 % (45-73); White Blood Count 5.6 X10*3/uL (4.8-10.8)
[2021-09-26 23:35] LABS: Platelet Count 153 X10*3/uL (160-400)
[2021-09-26 23:57] VITALS: BP 122/56; PULSE 79; RESP 16; O2SAT 100
[2021-09-27] VITALS (22 sets, daily range): BP systolic 92–137; BP diastolic 45–66; PULSE 68–80; RESP 13–18; TEMP 36.3–36.9; O2SAT 96–100
[2021-09-27] MEDS: Pantoprazole Sodium 40 MG/10 ML VIAL IVPUSH ×2 (00:17→01:48)
[2021-09-27] MEDS: ondansetron HCL 4 MG/2 ML VIAL IVPUSH ×2 (00:17→01:46)
[2021-09-27] MEDS: Hum Prothrombin Cplx(PCC)4Fact 1,500 UNIT in Container,Empty 0 ML 480 UNIT IV (00:17)
--- NOTE | 2021-09-27 00:20 | PC.NURSE ---
BLOOD HUNG AND CONFIRMED WITH MOOSE MYERS AT [phone], ISSUE WHERE BLOOD DID NOT SAVE VITALS AND VERIFICATION, REALIZING START ISSUE WITH THE BLOOD. RE-VERIFYING PATIENT WITH LUCIA VIRK. BLOOD HAS BEEN RUNNING WITHOUT ISSUE AND 15 MINUTE VITALS COMPLETE. PATIENT GETTING A CENTRAL LINE PLACED. THIS RN AND NURSING DIGITAL PRINT OPERATOR [facility] PER PROTOCOL. LOT NUMBERS FOR [facility] ARE #[id number], #[id number], #[id number].
[2021-09-27] MEDS: 0.9 % Sodium Chloride 500 ML 999 ML IV (00:22)
--- NOTE | 2021-09-27 00:47 | PC.NURSE ---
Blood transfusion was started at 00:08. Verified blood and recorded vitals with Lizzette VIRK prior to 00:08 but was not correctly saved in the TAR. This RN exited out of TAR to administer meds and then returned to find that transfusion was not started in the computer. Blood reverified with Lizzette VIRK and vitals entered based on actual start time. Central line placed provider.
--- NOTE | 2021-09-27 00:50 | PC.NURSE ---
[facility] CHECKLIST FILLED OUTY AND FAXED TO [facility]
[2021-09-27 01:15] LABS: MANUAL DIFF FLAG NO
[2021-09-27 01:16] LABS: Basophils Percent Auto 0.4 % (0-2); Eosinophils Absolute Auto 0.1 X10*3/uL (0.0-0.4); Eosinophils Percent Auto 1.9 % (0-4); Hematocrit 24.3 % (42.0-52.0); Hemoglobin 8.3 g/dl (14.0-18.0); Imm Gran Abs Auto 0.03 X10*3/uL (0.00-0.03); Imm Gran Pct Auto 0.5 % (0.0-0.4); Lymphocytes Absolute Auto 0.6 X10*3/uL (1.2-4.9); Lymphocytes Percent Auto 9.9 % (20-40); Mean Corpuscular HGB Conc 34.2 g/dl (31.0-36.0); Mean Corpuscular Hemoglobin 34.6 pg (27.0-33.0); Mean Corpuscular Volume 101.3 fL (80.0-98.0); Mean Platelet Volume 10.2 fL (9.4-12.4); Monocytes Absolute Auto 0.8 X10*3/uL (0.1-1.2); Monocytes Percent Auto 13.7 % (2-11); Neutrophils Absolute Auto 4.2 x10*3/uL (2.0-8.3); Neutrophils Percent Auto 73.6 % (45-73); Platelet Count 124 X10*3/uL (160-400); Red Cell Distribution Width 16.8 % (11.0-16.0); White Blood Count 5.7 X10*3/uL (4.8-10.8)
[2021-09-27 01:21] LABS: INTERNATIONAL NORM RATIO 1.2 (0.9-1.1)
[2021-09-27 01:31] LABS: ~Lactic Acid-LAB USE ONLY 2.5 mmol/L (0.5-2.0)
[2021-09-27] MEDS: iohexoL 350 MG/ML 100 ML INFUS..BTL 80 ML IV ×2 (01:38→02:25)
[2021-09-27] MEDS: Lidocaine HCl 4 % Laryng-O-Jet 4 ML 1 APPL TOPICAL (01:58)
[2021-09-27] MEDS: Phytonadione (Vit K1) 10 MG in 0.9 % Sodium Chloride 50 ML 51 MG IV ×2 (02:09→02:59)
[2021-09-27] MEDS: Octreotide Acetate 100 MCG/ML AMPUL 50 MCG IVPUSH (02:10)
[2021-09-27] MEDS: Pantoprazole Sodium 80 MG in 0.9 % Sodium Chloride 80 ML 10 MG IV ×3 (02:20→20:10)
--- NOTE | 2021-09-27 02:33 | P.HPCC_ITS ---
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 In addition the patient had a couple coffee-ground emesis episodes including 1 in the ER.? He reported maroon stools, the patient had become somewhat dizzy which prompted his to call EMS. In the emergency room the patient was noted to be hemodynamically stable, with section 1 episode of blood pressure 98/53.? His workup revealed a white count 5.7, H&H of 8.7 and 25.8 respectively but these decreased to 7.5 and 21.8 after 1 episode of hematemesis here.? A gastric lavage had been done in the ER without active bleeding.? Patient did receive 1 unit packed red blood cells and his current H&H is 8.3 and 24, platelet count is 124.? Initial lactic acid 3.8 but it improved to 2.5.? BUN of 43, creatinine of 1.33 albumin 2.6.? Stool occult blood was positive and COVID negative.? Patient had a abdominal and pelvis CT study which is not pending. Patient was started on IV Protonix, Kcentra and vitamin K had been given.? Embroidery Supervisor Dr. Rueda has been contacted and the consensus was that the patient does not need to be scoped at this point and this procedure will happen in the morning.? For now the patient will be transferred to the ICU for close monitoring given the concern of recurrent bleeding.? Currently patient has no more complaints. ROS:? Unable to obtain Past Medical History:? As above Past Surgical History:? As above Family history:? Noncontributory Social History:? Lives at home. Patient has never smoked or drank alcohol CODE STATUS: DNR / DNI Allergies: Demerol (headache) Home Medications: See Med Rec PHYSICAL EXAM: VS: ?103/45, heart rate 75, respirations 16, O2 sat 100% on 2 L nasal cannula. General:? Alert oriented x3 no acute distress.? Speaking full sentences.? Speech is well articulated, thought process is coherent.? Following all commands. Skin:? Intact, no lesions, edema, erythema, clubbing or cyanosis.? No ulcers. HEENT:? Head is normocephalic, atraumatic, pupils equal round reactive to light accommodation bilaterally.? Extraocular movements appear intact.? Buccal mucosa is dry. patient has some difficulty opening his mouth. Cardiac:? Clear S1-S2, no murmurs rubs or gallops. ?Left IJ central line, CDI. Pulmonary:? Clear to auscultation, no wheezes, rales or rhonchi. Abdomen:? Protuberant, positive bowel sounds in all 4 quadrants.? Soft, nontender, no rebound or guarding.? Musculoskeletal:? Moving all 4 extremities upon request a major joints, there is no crepitus or tenderness.? The strength is 5/5 bilaterally and throughout all 4 extremities.? There is no leg edema , no calf tenderness , no leg asymmetry.? Gait not assessed at this point. Neurologic:? As above, cranial nerves 2-12 are grossly intact.? No focal deficits noted. Vascular:? 2+ pulses upper and lower extremities distally. SIGNIFICANT LABORATORY DATA:? As above REVIEW OF IMAGES: ?Chest x-ray shows no acute pulmonary disease.? Central line placement in good position is noted. CT abd and Pelvis is pending EKG REVIEW: ?Normal sinus rhythm rate of 74 beats per minute.? There is no ST elevations, there is however T-wave inversions throughout the precordial leads, age-indeterminate changes.? QTC 444.? No comparison available. ASSESSMENT AND PLAN: 1. Acute upper GI bleed 2. Macrocytotic Anemia of acute blood loss and chronic disease 3. Hypercoagulable state due to Eliquis intake 4. Acute kidney injury due to hypoperfusion with BUN to creatinine ratio of 33 5. Reactive lactic acidosis due to GI bleed 6. Pseudo hypocalcemia 7. Hypoalbuminemia 8. Underlying history of lung and had cancer status post radiation therapy Patient is hemodynamically stable but there is a concern that he may develop an active or recurrent bleed, he will be transferred to the ICU for close monitoring, recycle H&H, he has received 2 units of packed red blood cells in the ER, appropriate reversal agents were given including Kcentra, vitamin K although the most appropriate medication with have been ANDEXXA (Eliquis reversal agent) which within care within the hospital.? His INR is now 1.2 from 1.5.? The patient is receiving Protonix IV drip, Dr. Rueda (GI specialist) has been contacted and the patient will go to the endoscopy suite in the morning unless something else happens.? Given that his blood pressure is borderline albumin salt was ordered but he may not need it. GI PROPHYLAXIS:? IV ppi DVT PROPHYLAXIS:? Pneumatic stockings only Critical care time used for critical evaluation of this patient, diagnosis, treatment and coordination of care, review her records and documentation TOTAL CRITICAL CARE TIME 90 MIN . Patient's care was discussed in detail with Dr. Mcnair.? He is aware of all the above as well as the plan of care for this patient. PMFSH Social History Social History Advance Directives: No Advance Directives Information Provided: No Meds Allergies Allergy/AdvReac Type Severity Reaction Status Date / Time meperidine [From DEMEROL] Allergy Intermediate HEADACHES Unverified 09/26/21 21:55 Active Medications: Current Medications Dextrose (Dextrose 50 % 25 Gm/50 Ml Syringe) 25 gm IVPUSH Q30M PRN PRN Reason: Nursing Actions in Insulin Infusion Protocol Pantoprazole Sodium 80 mg/ (Sodium Chloride) 100 mls @ 10 mls/hr IV .Q10H TONY Last Admin: 09/27/21 02:20 Dose: 8 mg/hr, 10 mls/hr Documented by: Insulin Human Regular (Myxredlin) 100 unit in 100 mls @ 0 mls/hr IVCONT .Q0M TONY; Protocol Albumin Human (Kedbumin 25 %) 100 mls @ 100 mls/hr IV Q1H TONY Stop: 09/27/21 03:59 Home Medications Medication Instructions Recorded Confirmed Last Taken Type apixaban 5 mg tablet (Eliquis) 1 tab PO BID 09/26/21 09/27/21 Unknown History calcitriol 0.25 mcg capsule 1 cap PO DAILY 09/26/21 09/27/21 Unknown History clobetasol 0.05 % topical ointment 1 applic TOPICAL BID 09/26/21 09/27/21 Unkno wn History famotidine 20 mg tablet 1 tab PO DAILY 09/26/21 09/27/21 Unknown History levothyroxine 112 mcg tablet 1 tab PO DAILY 09/26/21 09/27/21 Unknown History lorazepam 0.5 mg tablet 1 tab PO DAILY 09/26/21 09/27/21 Unknown History prednisone 5 mg tablet 1 tab PO DAILY 09/26/21 09/27/21 Unknown History tacrolimus 1 mg capsule, 1 cap PO Q8-10H 09/26/21 09/27/21 Unknown History immediate-release Physical Exam Vital Signs: Vital Signs: Last Vital Signs Temp 98.0 F 09/27/21 02:04 Pulse 70 09/27/21 02:04 Resp 16 09/27/21 02:04 BP 115/60 09/27/21 02:04 Pulse Ox 96 09/27/21 02:00 BMI result Body Mass Index 20.2 Results Labs CBC and Chem 7: 09/27/21 01:10 09/26/21 22:36 Labs: Laboratory Results - last 24 hr 09/26/21 09/26/21 09/26/21 21:10 21:11 21:11 WBC 4.4 L Hgb 8.7 L Hct 25.8 L MCV 106.6 H MCH 36.0 H MCHC 33.7 RDW 16.8 H Plt Count 155 L MPV 10.6 Immature Gran % (Auto) 0.5 H Neut % (Auto) 75.8 H Lymph % (Auto) 9.9 L Sebastian % (Auto) 10.8 Eos % (Auto) 2.5 Baso % (Auto) 0.5 Lymph # (Auto) 0.4 L Sebastian # (Auto) 0.5 Eos # (Auto) 0.1 Baso # (Auto) 0.0 Abs Immat Gran (auto) 0.02 Absolute Neuts (auto) 3.4 Absolute Nucleated RBC 0.000 Nucleated RBC % (auto) 0.0 PT INR Anion Gap Estim Creat Clear Calc Estimated GFR Random Glucose Lactic Acid 3.8 H* Lactic Acid F/U @ 2Hr Calcium Magnesium Total Bilirubin Direct Bilirubin AST ALT Alkaline Phosphatase Total Protein Albumin Stool Occult Blood COVID-19 (ABDON) Negative COVID-19 Clin Com See Note Blood Type Antibody Screen Crossmatch 09/26/21 09/26/21 09/26/21 21:11 21:48 22:36 WBC Hgb Hct MCV MCH MCHC RDW Plt Count MPV Immature Gran % (Auto) Neut % (Auto) Lymph % (Auto) Sebastian % (Auto) Eos % (Auto) Baso % (Auto) Lymph # (Auto) Sebastian # (Auto) Eos # (Auto) Baso # (Auto) Abs Immat Gran (auto) Absolute Neuts (auto) Absolute Nucleated RBC Nucleated RBC % (auto) PT 16.9 H INR 1.5 H Anion Gap 10 L Estim Creat Clear Calc 47.2 Estimated GFR 54 Random Glucose 91 Lactic Acid Lactic Acid F/U @ 2Hr Calcium 8.1 L Magnesium 1.7 Total Bilirubin 0.4 Direct Bilirubin 0.2 AST 13 ALT 9 Alkaline Phosphatase 105 Total Protein 5.3 L Albumin 2.6 L Stool Occult Blood POSITIVE COVID-19 (ABDON) [employer] [facility] Blood Type Antibody Screen Crossmatch 09/26/21 09/26/21 09/27/21 23:08 23:09 01:10 WBC 5.6 Hgb 7.5 L Hct 21.8 L MCV 103.8 H MCH 35.7 H MCHC 34.4 RDW 16.6 H Plt Count 153 L MPV 10.8 Immature Gran % (Auto) 0.5 H Neut % (Auto) 73.5 H Lymph % (Auto) 9.8 L Sebastian % (Auto) 13.7 H Eos % (Auto) 2.3 Baso % (Auto) 0.2 Lymph # (Auto) 0.6 L Sebastian # (Auto) 0.8 Eos # (Auto) 0.1 Baso # (Auto) 0.0 Abs Immat Gran (auto) 0.03 Absolute Neuts (auto) 4.1 Absolute Nucleated RBC 0.000 Nucleated RBC % (auto) 0.0 PT INR Anion Gap Estim Creat Clear Calc Estimated GFR Random Glucose Lactic Acid Lactic Acid F/U @ 2Hr 2.5 H* Calcium Magnesium Total Bilirubin Direct Bilirubin AST ALT Alkaline Phosphatase Total Protein Albumin Stool Occult Blood COVID-19 (ABDON) COVID-19 [facility] Blood Type A Positive Antibody Screen NEGATIVE Crossmatch See Detail 09/27/21 09/27/21 01:10 01:10 WBC 5.7 Hgb 8.3 L Hct 24.3 L MCV 101.3 H MCH 34.6 H MCHC 34.2 RDW 16.8 H Plt Count 124 L MPV 10.2 Immature Gran % (Auto) 0.5 H Neut % (Auto) 73.6 H Lymph % (Auto) 9.9 L Sebastian % (Auto) 13.7 H Eos % (Auto) 1.9 Baso % (Auto) 0.4 Lymph # (Auto) 0.6 L Sebastian # (Auto) 0.8 Eos # (Auto) 0.1 Baso # (Auto) 0.0 Abs Immat Gran (auto) 0.03 Absolute Neuts (auto) 4.2 Absolute Nucleated RBC 0.000 Nucleated RBC % (auto) 0.0 PT 14.0 H INR 1.2 H Anion Gap Estim Creat Clear Calc Estimated GFR Random Glucose Lactic Acid Lactic Acid F/U @ 2Hr Calcium Magnesium Total Bilirubin Direct Bilirubin AST ALT Alkaline Phosphatase Total Protein Albumin Stool Occult Blood COVID-19 (ABDON) COVID-19 Clin Com Blood Type Antibody Screen Crossmatch Imaging Radiologist's Impressions: Impressions Chest X-Ray 09/27/21 00:17 FINDINGS/IMPRESSION: Left internal jugular central venous catheter terminates in the mid SVC near the superior cavoatrial junction. No pneumothorax. Normal heart size and pulmonary vascularity. Lungs are clear. No pleural effusion. No acute or suspicious osseous abnormalities.
[2021-09-27 03:14] LABS: Reflex Lactate? 2 Y
[2021-09-27] MEDS: Albumin Human 25 % 100 ML IV ×2 (03:19→04:15)
[2021-09-27 03:50] LABS: ~Lactic Acid-LAB USE ONLY 1.1 mmol/L (0.5-2.0)
[2021-09-27] MEDS: Metoclopramide HCl 10 MG/2 ML VIAL 5 MG IVPUSH (04:32)
--- NOTE | 2021-09-27 04:42 | PC.NURSE ---
PT TO ICU AT 0310 ALERT & ORIENTED X3. PROTONIX DRIP AT 8 MG/HR INFUSING BY CENTRAL LINE LIJ. SECOND DOSE OF VIT K INFUSING. BP 114/53. MONITOR SHOWS NSR, RATE 70'S, NO ECTOPY NOTED. PT ORIENTED TO UNIT AND UNIT ROUTINE. ADMISSION ASSESSMENT DONE. PT HAS GTUBE IN PACE MID ABD. HE RECEIVED 1 BOTTLE OF ALBUMIN ON ARRIVAL TO ICU AND 2ND BOTTLE PRESENTLY INFUSING. LACTIC DRAWN AND WAS <1 REVIEWED BY PROVIDER SHANNAN PAC. NO ACUTE RESP DISTRESS. O2 SAT 97-99% ON RA. EXTREMITIES WARM TO TOUCH WITH POS PULSES PALPABLE BILAT. SECOND UNIT OF LRBC'S INFUSING. PROVIDER SHANNAN SAID TO HOLD 3RD UNIT. WILL CHECK CBC AFTER CURRENT UNIT INFUSED. PT DENIES PAIN. C/O NAUSEA. NO VOMITTING. REGLAN GIVEN ORDERED. PT HAS SLIGHT SLURRED SPEECH WHICH IS NORMAL FOR HIM S/P TONGUE SURGERY FOR CA.
[2021-09-27 06:53] LABS: MANUAL DIFF FLAG NO
[2021-09-27 06:57] LABS: Basophils Percent Auto 0.4 % (0-2); Eosinophils Absolute Auto 0.1 X10*3/uL (0.0-0.4); Eosinophils Percent Auto 2.4 % (0-4); Hematocrit 25.7 % (42.0-52.0); Hemoglobin 8.8 g/dl (14.0-18.0); Imm Gran Abs Auto 0.02 X10*3/uL (0.00-0.03); Imm Gran Pct Auto 0.4 % (0.0-0.4); Lymphocytes Absolute Auto 0.5 X10*3/uL (1.2-4.9); Lymphocytes Percent Auto 11.2 % (20-40); Mean Corpuscular HGB Conc 34.2 g/dl (31.0-36.0); Mean Corpuscular Hemoglobin 33.7 pg (27.0-33.0); Mean Corpuscular Volume 98.5 fL (80.0-98.0); Mean Platelet Volume 10.3 fL (9.4-12.4); Monocytes Absolute Auto 0.7 X10*3/uL (0.1-1.2); Monocytes Percent Auto 14.8 % (2-11); Neutrophils Absolute Auto 3.2 x10*3/uL (2.0-8.3); Neutrophils Percent Auto 70.8 % (45-73); Red Blood Count 2.61 X10*6/uL (4.60-5.80); Red Cell Distribution Width 16.3 % (11.0-16.0); White Blood Count 4.5 X10*3/uL (4.8-10.8)
--- NOTE | 2021-09-27 07:08 | MHC.SHP ---
Pre-Procedural Eval Section A Date of Service: 09/27/21 The patient is an INPATIENT: Yes Changes since office visit: No Cold of Flu in the past 2 weeks, No New Medical Problems, No Changes in Medication and No Patient answered all questions The History & Physical has been completed within 30 days and I have reviewed it.: Yes Section B Chief Complaint: UGIB Allergies: Allergies Allergy/AdvReac Type Severity Reaction Status Date / Time meperidine [From DEMEROL] Allergy Intermediate HEADACHES Unverified 09/26/21 21:55 Plan I have reviewed the history and physical and performed a pertinent physical examination on my patient. No changes have occurred unless specified.
--- NOTE | 2021-09-27 07:08 | PM.EVENT ---
Event Note Date of Service: 09/27/21 Event Note: GI Consult dictated UGIB exacerbated by anticoagulation. CT suggests esophagitis. He is also 6wks s/p XRT for scc of head/neck. Plan EGD today for evaluation. Pt is aware of risks/benefits and agrees to proceed.
[2021-09-27 07:24] LABS: Alanine Aminotransferase 9 U/L (0-40); Albumin Level 3.5 g/dL (3.5-5.0); Alkaline Phosphatase 74 U/L (39-117); Anion Gap 13 (12-20); Aspartate Amino Transferase 10 U/L (5-37); Bilirubin Total 1.2 mg/dL (0.0-1.0); Blood Urea Nitrogen 37 mg/dL (9-16); Carbon Dioxide 25 mmol/L (22-29); Chloride 104 mmol/L (96-108); Creatinine Clr Calc Pharmacy 52.3; Estimated Glomerular Filt Rate > 60; Glucose Random 95 mg/dL (60-115); Potassium 4.9 mmol/L (3.3-5.1); Sodium 137 mmol/L (135-145); Total Protein 5.6 g/dL (6.5-8.0)
--- NOTE | 2021-09-27 07:26 | HO.ANESPROP2 ---
FORMERLY [facility], LATER [facility] Active Problems Active Problems: All Active Problems (Updated 09/27/21 @ 01:59 by Elba Harvey NP) GIB (gastrointestinal bleeding) (Acute) pulmonary fibrosis s/p lung transplantation PE Past Medical History Functional capacity: independent ambulation Family History Family history of problems with anesthesia: No Surgical History History of Problems with Anesthesia: No Social History Social History Household Members: Spouse Housing: Apartment Do you presently have visiting nurse or other home services: Yes Patient Tobacco Use Status: Never used Tobacco Use of substances other than those prescribed or required for medical reasons: No Currently Displaying Signs/Symptoms of Drug Intoxication Withdrawal: No Any prior treatment program specific to substance use: No Have you been hit, kicked, punched, or otherwise hurt by someone within the past year? If so, by whom?: No Do you feel safe in your current relationship?: No Is there a partner from a previous relationship who is making you feel unsafe now?: No Are you made to feel afraid or neglected: No Spiritual Healthcare Practices: NONE Church Healthcare Practices: NONE Cultural Healthcare Practices: NONE Advance Directives: No Advance Directives Information Provided: No Advance Directives on File: No Do you have thoughts of harming others: None Do you have a plan to hurt others: No Plan Recently lost weight without trying: Yes How much weight loss: 2-13 pounds Nutrition Risks: On aspiration precautions and Poor intake 0-25% >4 days Poor oral hygiene: No Meds Allergies Allergy/AdvReac Type Severity Reaction Status Date / Time meperidine [From DEMEROL] Allergy Intermediate HEADACHES Unverified 09/26/21 21:55 Active Medications: Current Medications Pantoprazole Sodium 80 mg/ (Sodium Chloride) 100 mls @ 10 mls/hr IV .Q10H [facility] Last Admin: 09/27/21 02:20 Dose: 8 mg/hr, 10 mls/hr Documented by: Home Medications Medication Instructions Recorded Confirmed Last Taken Type apixaban 5 mg tablet (Eliquis) 1 tab PO BID 09/26/21 Unknown History calcitriol 0.25 mcg capsule 1 cap PO DAILY 09/26/21 Unknown History clobetasol 0.05 % topical ointment 1 applic TOPICAL BID 09/26/21 Unknown History famotidine 20 mg tablet 1 tab PO DAILY 09/26/21 Unknown History levothyroxine 112 mcg tablet 1 tab PO DAILY 09/26/21 Unknown History lorazepam 0.5 mg tablet 1 tab PO DAILY 09/26/21 Unknown History prednisone 5 mg tablet 1 tab PO DAILY 09/26/21 Unknown History tacrolimus 1 mg capsule, 1 cap PO Q8-10H 09/26/21 Unknown History immediate-release azithromycin 250 mg tablet 1 tab PO 3XW 09/27/21 Unknown History sertraline 25 mg tablet 1 tab PO DAILY 09/27/21 Unknown History tamsulosin 0.4 mg capsule 1 cap PO DAILY 09/27/21 Unknown History Exam Exam Date and Time: September 27, 2021 0726 Height,Weight and Vital Signs: Height 5 ft 7 in Weight 58.2 kg Last Vital Signs Temp 97.9 F 09/27/21 06:03 Pulse 78 09/27/21 06:03 Resp 15 09/27/21 06:03 BP 119/60 09/27/21 06:03 Pulse Ox 97 09/27/21 06:00 Pertinent Lab Results Pertinent Lab Results: Laboratory Tests 09/26/21 09/26/21 09/26/21 21:10 21:11 21:11 WBC 4.4 L RBC 2.42 L Hgb 8.7 L Hct 25.8 L MCV 106.6 H MCH 36.0 H MCHC 33.7 RDW 16.8 H Plt Count 155 L MPV 10.6 Immature Gran % (Auto) 0.5 H Neut % (Auto) 75.8 H Lymph % (Auto) 9.9 L [place] % (Auto) 10.8 Eos % (Auto) 2.5 Baso % (Auto) 0.5 Lymph # (Auto) 0.4 L [place] # (Auto) 0.5 Eos # (Auto) 0.1 Baso # (Auto) 0.0 Abs Immat Gran (auto) 0.02 Absolute Neuts (auto) 3.4 Absolute Nucleated RBC 0.000 Nucleated RBC % (auto) 0.0 PT INR Sodium Potassium Chloride Carbon Dioxide Anion Gap BUN Creatinine Estim Creat Clear Calc Estimated GFR Random Glucose Lactic Acid 3.8 H* Lactic Acid F/U @ 2Hr Lactic Acid F/U @ 4Hr Calcium Magnesium Total Bilirubin Direct Bilirubin AST ALT Alkaline Phosphatase Total Protein Albumin Stool Occult Blood COVID-19 (ABDON) Negative COVID-19 Clin Com See Note Blood Type Antibody Screen Crossmatch 09/26/21 09/26/2109/26/22 21:11 21:48 22:36 WBC RBC Hgb Hct MCV MCH MCHC RDW Plt Count MPV Immature Gran % (Auto) Neut % (Auto) Lymph % (Auto) [place] % (Auto) Eos % (Auto) Baso % (Auto) Lymph # (Auto) [place] # (Auto) Eos # (Auto) Baso # (Auto) Abs Immat Gran (auto) Absolute Neuts (auto) Absolute Nucleated RBC Nucleated RBC % (auto) PT 16.9 H INR 1.5 H Sodium 137 Potassium 4.5 Chloride 104 Carbon Dioxide 28 Anion Gap 10 L BUN 43 H Creatinine 1.33 Estim Creat Clear Calc 47.2 Estimated GFR 54 Random Glucose 91 Lactic Acid Lactic Acid F/U @ 2Hr Lactic Acid F/U @ 4Hr Calcium 8.1 L Magnesium 1.7 Total Bilirubin 0.4 Direct Bilirubin 0.2 AST 13 ALT 9 Alkaline Phosphatase 105 Total Protein 5.3 L Albumin 2.6 L Stool Occult Blood POSITIVE COVID-19 (ABDON) COVID-[facility]lee Blood Type Antibody Screen Crossmatch 09/26/21 09/26/21 09/27/21 23:08 23:09 01:10 WBC 5.6 RBC 2.10 L Hgb 7.5 L Hct 21.8 L MCV 103.8 H MCH 35.7 H MCHC 34.4 RDW 16.6 H Plt Count 153 L MPV 10.8 Immature Gran % (Auto) 0.5 H Neut % (Auto) 73.5 H Lymph % (Auto) 9.8 L [place] % (Auto) 13.7 H Eos % (Auto) 2.3 Baso % (Auto) 0.2 Lymph # (Auto) 0.6 L [place] # (Auto) 0.8 Eos # (Auto) 0.1 Baso # (Auto) 0.0 Abs Immat Gran (auto) 0.03 Absolute Neuts (auto) 4.1 Absolute Nucleated RBC 0.000 Nucleated RBC % (auto) 0.0 PT INR Sodium Potassium Chloride Carbon Dioxide Anion Gap BUN Creatinine Estim Creat Clear Calc Estimated GFR Random Glucose Lactic Acid Lactic Acid F/U @ 2Hr 2.5 H* Lactic Acid F/U @ 4Hr Calcium Magnesium Total Bilirubin Direct Bilirubin AST ALT Alkaline Phosphatase Total Protein Albumin Stool Occult Blood COVID-19 (ABDON) COVID-19 [employer] Com Blood Type A Positive Antibody Screen NEGATIVE Crossmatch See Detail 09/27/21 09/27/21 09/27/21 01:10 01:10 03:28 WBC 5.7 RBC 2.40 L Hgb 8.3 L Hct 24.3 L MCV 101.3 H MCH 34.6 H MCHC 34.2 RDW 16.8 H Plt Count 124 L MPV 10.2 Immature Gran % (Auto) 0.5 H Neut % (Auto) 73.6 H Lymph % (Auto) 9.9 L [place] % (Auto) 13.7 H Eos % (Auto) 1.9 Baso % (Auto) 0.4 Lymph # (Auto) 0.6 L [place] # (Auto) 0.8 Eos # (Auto) 0.1 Baso # (Auto) 0.0 Abs Immat Gran (auto) 0.03 Absolute Neuts (auto) 4.2 Absolute Nucleated RBC 0.000 Nucleated RBC % (auto) 0.0 PT 14.0 H INR 1.2 H Sodium Potassium Chloride Carbon Dioxide Anion Gap BUN Creatinine Estim Creat Clear Calc Estimated GFR Random Glucose Lactic Acid Lactic Acid F/U @ 2Hr Lactic Acid F/U @ 4Hr 1.1 Calcium Magnesium Total Bilirubin Direct Bilirubin AST ALT Alkaline Phosphatase Total Protein Albumin Stool Occult Blood COVID-19 (ABDON) [employer] Blood Type Antibody Screen Crossmatch 09/27/21 06:27 WBC RBC Hgb Hct MCV MCH MCHC RDW Plt Count MPV Immature Gran % (Auto) Neut % (Auto) Lymph % (Auto) [place] % (Auto) Eos % (Auto) Baso % (Auto) Lymph # (Auto) [place] # (Auto) Eos # (Auto) Baso # (Auto) Abs Immat Gran (auto) Absolute Neuts (auto) Absolute Nucleated RBC Nucleated RBC % (auto) PT INR Sodium 137 Potassium 4.9 Chloride 104 Carbon Dioxide 25 Anion Gap 13 BUN 37 H Creatinine 1.19 Estim Creat Clear Calc 52.3 Estimated GFR > 60 Random Glucose 95 Lactic Acid Lactic Acid F/U @ 2Hr Lactic Acid F/U @ 4Hr Calcium 8.0 L Magnesium Total Bilirubin 1.2 H Direct Bilirubin AST 10 ALT 9 Alkaline Phosphatase 74 D Total Protein 5.6 L Albumin 3.5 D Stool Occult Blood COVID-19 (ABDON) [employer] Blood Type Antibody Screen Crossmatch Airway Mallampati Class: III TM Dist: >3cm Neck ROM: Limited Heart: RRR Lungs: CTA Assessment and Plan Final Anesthetic Review Family History of Problems with Anesthesia: No History of Problems with Anesthesia: No Final Preanesthetic Review: No Changes in Pt Med Stat, Meds/Allgs Chart Reviewed, Consent Obtained/Reviewed, Anes Risks/Benef Reviewed and DNR Form (If Appl.) Patient Risk: Intermediate Procedure Risk: Intermediate Anesthetic Plan Anesthetic Plan: GA Disposition: Standard PACU
[2021-09-27 07:28] LABS: Platelet Count 97 X10*3/uL (160-400)
--- NOTE | 2021-09-27 07:50 | CONS_ITS ---
DATE OF SERVICE: 09/27/2021 REFERRING PHYSICIAN: Elba Harvey NP REASON FOR CONSULTATION: Upper GI bleeding. HISTORY OF PRESENT ILLNESS: The patient is a pleasant 61-year-old man who was admitted to the hospital after presenting to the emergency room with GI bleeding. He was well until the day of admission when he had urge to move his bowels and passed bloody stool. He felt lightheaded and was brought to the emergency room. He was noted to have 1 episode of hematemesis in the emergency room followed by a second episode of coffee-grounds emesis. He does take Eliquis for history of pulmonary embolism. Lab work was done showing a hematocrit of 25.8, which was down from 33.6 on August 2019. This decreased to 21.8, and he received 2 units of packed red blood cells and was admitted to the ICU. He also had CT scanning, which suggested esophagitis. He was given Kcentra and vitamin K and has had no further bleeding. 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 The J-tube was lavaged and showed no further bleeding. PAST MEDICAL HISTORY: 1. 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 2. Hypothyroidism. 3. Chronic kidney disease. 4. 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 5. Chronic immunosuppressive treatment including prednisone. CURRENT MEDICATIONS: Current medication list is reviewed in the chart. ALLERGIES: DEMEROL. FAMILY HISTORY: This is reviewed with the patient and is negative for upper GI malignancy. SOCIAL HISTORY: There is no history of tobacco, alcohol, or substance abuse. REVIEW OF SYSTEMS: SKIN: No pruritus. HEENT: Negative. CARDIOPULMONARY: No shortness of breath or chest pain. GASTROINTESTINAL: As above. GENITOURINARY: Negative. NEUROPSYCHIATRIC: Negative. PHYSICAL EXAMINATION: GENERAL: Shows a pleasant male, resting comfortably in bed. VITAL SIGNS: Reviewed in the ICU and are stable. SKIN: Anicteric. HEENT: Shows no scleral icterus. NECK: A right neck mass is present with skin changes from radiation. LUNGS: Clear. HEART: Shows a regular rate and rhythm. S1, S2. No murmur. ABDOMEN: Soft without focal masses or tenderness. Bowel sounds are present. The G-tube appears intact with no bloody drainage. EXTREMITIES: Without edema. LABORATORY DATA: Reviewed. IMPRESSION: Upper gastrointestinal bleeding. The differential diagnosis for this includes peptic ulcer disease, gastritis, esophagitis, and radiation damage. The bleeding has been exacerbated by the use of Eliquis. I discussed risks and benefits of endoscopy with the patient. He understands and agrees to proceed. I agree with treating him in the interim with pantoprazole and following his hematocrit. Thanks for asking me to see him. I will follow him in the hospital with you. MD TALAT Rodríguez/DARON / [id number] MTDD
--- NOTE | 2021-09-27 08:46 | PM.EVENT ---
Event Note Date of Service: 09/27/21 Event Note: EGD note dictated erosive esophagitis with a nonbleeding vessel at eg junction, single endoscopic clip applied. gastritis, biopsied. no bleeding rec: continue ppi, follow hct g-tube feeds ok
--- NOTE | 2021-09-27 08:49 | PM.OP ---
Brief Operative Note Date of Service: 09/27/21 Pre-op diagnosis: gi bleed Post-op diagnosis: same (erosive esophagitis, gastritis) Procedure: EGD Surgeon: Ernesto Rueda Anesthesia: GETA Was an Gastroenterology Technician used for this Procedure?: No Estimated blood loss (mL): 5 Pathology: other (antral biopsies) Condition: stable Disposition: PACU
--- NOTE | 2021-09-27 09:35 | OP_ITS ---
SURGEON: Ernesto Rueda MD INDICATIONS: Upper GI bleeding. PREOPERATIVE DIAGNOSIS: POSTOPERATIVE DIAGNOSIS: PROCEDURE PERFORMED: ESTIMATED BLOOD LOSS: COMPLICATIONS: ANESTHESIA: ASSISTANTS: SPECIMENS: PROCEDURE: Upper endoscopy with control of hemorrhage and biopsy. MEDICATIONS: Monitored general anesthesia. DESCRIPTION OF PROCEDURE: The history and physical performed. The risks and benefits of the procedure were explained to the patient. Informed consent was obtained. The patient was placed in a left lateral decubitus position. The Olympus video gastroscope was introduced into the esophagus, stomach, and duodenum. Examination was performed. The scope was removed. He tolerated the procedure well and was taken to recovery in stable condition. FINDINGS: Esophagus: There was some minimal erythema around in the vicinity of the upper esophageal sphincter, but no active bleeding or telangiectasias. At the EG junction, there were several erosions, one of which had a visible vessel that was not bleeding. The stomach showed no evidence of masses or ulcers. There was mild gastritis with erythema. The EG tube was present on the anterior wall and appeared in good position. Antral biopsies were obtained. Duodenum: The bulb and second portion were normal. A single endoscopic clip was placed at the site of the vessel with no bleeding. Initial attempts to deploy the clip resulted in 1 clip falling off and that was recovered with Samuels net. IMPRESSION: 1. Erosive esophagitis. 2. Gastritis. RECOMMENDATION: 1. Follow up biopsy results. 2. Continue n.p.o., G-tube feeds may be instituted. 3. Continue proton pump inhibitor and follow hematocrit. MD TALAT Rodríguez/MODL / [id number]
[2021-09-27 12:49] LABS: Hematocrit 30.4 % (42.0-52.0); Hemoglobin 10.2 g/dl (14.0-18.0); Mean Corpuscular HGB Conc 33.6 g/dl (31.0-36.0); Mean Corpuscular Hemoglobin 33.7 pg (27.0-33.0); Mean Corpuscular Volume 100.3 fL (80.0-98.0); Mean Platelet Volume 9.8 fL (9.4-12.4); Red Blood Count 3.03 X10*6/uL (4.60-5.80); White Blood Count 5.4 X10*3/uL (4.8-10.8)
[2021-09-27 12:50] LABS: Platelet Count 93 X10*3/uL (160-400)
--- NOTE | 2021-09-27 13:04 | PHA.MEDREC ---
Pharmacy Consult ? Medication Reconciliation Pharmacy has completed the medication reconciliation. No remarkable issues. Sonja Swift, JosueD
--- NOTE | 2021-09-27 13:32 | MHC.CLN ---
RE: CONSULT RECOMMEND TF PROMOTE AT MAX GOAL RATE 70ML/HR WITH 120ML FREE WATER FLUSHES Q SHIFT TO PROVIDE 1680KCALS, 105G PROTEIN, 1769ML TOTAL WATER FROM FORMULA AND FLUSH. MONITOR TOLERANCE, RESIDUALS AND LYTES FULL NUTRITION ASSESSMENT TO FOLLOW
--- NOTE | 2021-09-27 14:10 | P.PNCC_ITS ---
Subjective Subjective Date of Service: 09/27/21 Interval History: Mr. Curtis was admitted to the ICU early this morning bec of an UGI bleed. See H&P for PMHx and HPI.? Been transfused 2 units RBCs this morning. Underwent EGD this morning by Dr. Rueda.? See his findings. Been rock stable hemodynamically thruout.? Breathing easy on room air. Hb stable, now up to 10.2. IMPRESSION: 1. UGI bleed 2. Erosive esphagitis 3. Gastritis. Continue PPI infusion x 24 hrs.? Follow Hb.? Tomorrow change to bid PPI oral suspension via Gtube. Stable for transfer to med surg.? Signed out to hospitalists. Spoke with the patient and his re UGI bleeding, his condition, the procedure, and his prognosis. Time: 35+ min. ([id number]) Critical Care Time (minutes): 0 Physical Exam Vital Signs: Vital Signs: Last Vital Signs Temp 97.7 F 09/27/21 13:00 Pulse 74 09/27/21 13:57 Resp 15 09/27/21 13:57 BP 109/50 L 09/27/21 13:57 Pulse Ox 100 09/27/21 13:57 BMI result Body Mass Index 20.0 Objective Data Labs CBC & Chem 7: 09/27/21 12:28 09/27/21 06:27 Labs: Laboratory Results - last 24 hr 09/26/21 09/26/21 09/26/21 21:10 21:11 21:11 WBC 4.4 L RBC 2.42 L Hgb 8.7 L Hct 25.8 L MCV 106.6 H MCH 36.0 H MCHC 33.7 RDW 16.8 H Plt Count 155 L MPV 10.6 Immature Gran % (Auto) 0.5 H Neut % (Auto) 75.8 H Lymph % (Auto) 9.9 L [place] % (Auto) 10.8 Eos % (Auto) 2.5 Baso % (Auto) 0.5 Lymph # (Auto) 0.4 L [place] # (Auto) 0.5 Eos # (Auto) 0.1 Baso # (Auto) 0.0 Abs Immat Gran (auto) 0.02 Absolute Neuts (auto) 3.4 Absolute Nucleated RBC 0.000 Nucleated RBC % (auto) 0.0 PT INR Sodium Potassium Chloride Carbon Dioxide Anion Gap BUN Creatinine Estim Creat Clear Calc Estimated GFR Random Glucose Lactic Acid 3.8 H* Lactic Acid F/U @ 2Hr Lactic Acid F/U @ 4Hr Calcium Magnesium Total Bilirubin Direct Bilirubin AST ALT Alkaline Phosphatase Total Protein Albumin Stool Occult Blood COVID-19 (ABDON) Negative COVID-19 [facility] Com See Note Blood Type Antibody Screen Crossmatch 09/26/21 09/26/21 09/26/21 21:11 21:48 22:36 WBC RBC Hgb Hct MCV MCH MCHC RDW Plt Count MPV Immature Gran % (Auto) Neut % (Auto) Lymph % (Auto) [place] % (Auto) Eos % (Auto) Baso % (Auto) Lymph # (Auto) [place] # (Auto) Eos # (Auto) Baso # (Auto) Abs Immat Gran (auto) Absolute Neuts (auto) Absolute Nucleated RBC Nucleated RBC % (auto) PT 16.9 H INR 1.5 H Sodium 137 Potassium 4.5 Chloride 104 Carbon Dioxide 28 Anion Gap 10 L BUN 43 H Creatinine 1.33 Estim Creat Clear Calc 47.2 Estimated GFR 54 Random Glucose 91 Lactic Acid Lactic Acid F/U @ 2Hr Lactic Acid F/U @ 4Hr Calcium 8.1 L Magnesium 1.7 Total Bilirubin 0.4 Direct Bilirubin 0.2 AST 13 ALT 9 Alkaline Phosphatase 105 Total Protein 5.3 L Albumin 2.6 L Stool Occult Blood POSITIVE COVID-19 (ABDON) COVID-19 [facility] Com Blood Type Antibody Screen Crossmatch 09/26/21 09/26/21 09/27/21 23:08 23:09 01:10 WBC 5.6 RBC 2.10 L Hgb 7.5 L Hct 21.8 L MCV 103.8 H MCH 35.7 H MCHC 34.4 RDW 16.6 H Plt Count 153 L MPV 10.8 Immature Gran % (Auto) 0.5 H Neut % (Auto) 73.5 H Lymph % (Auto) 9.8 L [place] % (Auto) 13.7 H Eos % (Auto) 2.3 Baso % (Auto) 0.2 Lymph # (Auto) 0.6 L [place] # (Auto) 0.8 Eos # (Auto) 0.1 Baso # (Auto) 0.0 Abs Immat Gran (auto) 0.03 Absolute Neuts (auto) 4.1 Absolute Nucleated RBC 0.000 Nucleated RBC % (auto) 0.0 PT INR Sodium Potassium Chloride Carbon Dioxide Anion Gap BUN Creatinine Estim Creat Clear Calc Estimated GFR Random Glucose Lactic Acid Lactic Acid F/U @ 2Hr 2.5 H* Lactic Acid F/U @ 4Hr Calcium Magnesium Total Bilirubin Direct Bilirubin AST ALT Alkaline Phosphatase Total Protein Albumin Stool Occult Blood COVID-19 (ABDON) COVID-19 [facility] Blood Type A Positive Antibody Screen NEGATIVE Crossmatch See Detail 09/27/21 09/27/21 09/27/21 01:10 01:10 03:28 WBC 5.7 RBC 2.40 L Hgb 8.3 L Hct 24.3 L MCV 101.3 H MCH 34.6 H MCHC 34.2 RDW 16.8 H Plt Count 124 L MPV 10.2 Immature Gran % (Auto) 0.5 H Neut % (Auto) 73.6 H Lymph % (Auto) 9.9 L [place] % (Auto) 13.7 H Eos % (Auto) 1.9 Baso % (Auto) 0.4 Lymph # (Auto) 0.6 L [place] # (Auto) 0.8 Eos # (Auto) 0.1 Baso # (Auto) 0.0 Abs Immat Gran (auto) 0.03 Absolute Neuts (auto) 4.2 Absolute Nucleated RBC 0.000 Nucleated RBC % (auto) 0.0 PT 14.0 H INR 1.2 H Sodium Potassium Chloride Carbon Dioxide Anion Gap BUN Creatinine Estim Creat Clear Calc Estimated GFR Random Glucose Lactic Acid Lactic Acid F/U @ 2Hr Lactic Acid F/U @ 4Hr 1.1 Calcium Magnesium Total Bilirubin Direct Bilirubin AST ALT Alkaline Phosphatase Total Protein Albumin Stool Occult Blood COVID-19 (ABDON) COVID-19 [facility] Blood Type Antibody Screen Crossmatch 09/27/21 09/27/21 09/27/21 06:27 06:27 12:28 WBC 4.5 L 5.4 RBC 2.61 L 3.03 L Hgb 8.8 L 10.2 L Hct 25.7 L 30.4 L MCV 98.5 H 100.3 H MCH 33.7 H 33.7 H MCHC 34.2 33.6 RDW 16.3 H 17.0 H Plt Count 97 L 93 L MPV 10.3 9.8 Immature Gran % (Auto) 0.4 Neut % (Auto) 70.8 Lymph % (Auto) 11.2 L [place] % (Auto) 14.8 H Eos % (Auto) 2.4 Baso % (Auto) 0.4 Lymph # (Auto) 0.5 L [place] # (Auto) 0.7 Eos # (Auto) 0.1 Baso # (Auto) 0.0 Abs Immat Gran (auto) 0.02 Absolute Neuts (auto) 3.2 Absolute Nucleated RBC 0.000 0.000 Nucleated RBC % (auto) 0.0 0.0 PT INR Sodium 137 Potassium 4.9 Chloride 104 Carbon Dioxide 25 Anion Gap 13 BUN 37 H Creatinine 1.19 Estim Creat Clear Calc 52.3 Estimated GFR > 60 Random Glucose 95 Lactic Acid Lactic Acid F/U @ 2Hr Lactic Acid F/U @ 4Hr Calcium 8.0 L Magnesium Total Bilirubin 1.2 H Direct Bilirubin AST 10 ALT 9 Alkaline Phosphatase 74 D Total Protein 5.6 L Albumin 3.5 D Stool Occult Blood COVID-19 (ABDON) COVID-19 Clin Com Blood Type Antibody Screen Crossmatch Quality Stroke Does the patient have a stroke diagnosis?: No VTE Prior VTE?: No VTE Risk Level:: Medical - moderate - high VTE Device Contraindication: Procedure Contraindicated VTE Drug Contraindication: Treatment Not Indicated
[2021-09-27] MEDS: Levothyroxine Sodium 112 MCG TABLET PO (15:52)
[2021-09-27] MEDS: predniSONE 5 MG TABLET PO (15:53)
[2021-09-27] MEDS: Tacrolimus 1 MG CAPSULE PO (21:52)
[2021-09-28 03:44] VITALS: BP 96/45; PULSE 66; RESP 15; TEMP 37; O2SAT 96
[2021-09-28] MEDS: Pantoprazole Sodium 80 MG in 0.9 % Sodium Chloride 80 ML 10 MG IV ×2 (04:55→16:07)
[2021-09-28 06:58] LABS: Hematocrit 26.5 % (42.0-52.0); Hemoglobin 8.8 g/dl (14.0-18.0); Mean Corpuscular HGB Conc 33.2 g/dl (31.0-36.0); Mean Corpuscular Volume 99.3 fL (80.0-98.0); Mean Platelet Volume 10.1 fL (9.4-12.4); Platelet Count 100 X10*3/uL (160-400); Red Blood Count 2.67 X10*6/uL (4.60-5.80); Red Cell Distribution Width 16.7 % (11.0-16.0); White Blood Count 4.8 X10*3/uL (4.8-10.8)
[2021-09-28 07:32] LABS: Anion Gap 10 (12-20); Blood Urea Nitrogen 30 mg/dL (9-16); Calcium 7.8 mg/dL (8.4-10.2); Carbon Dioxide 25 mmol/L (22-29); Chloride 107 mmol/L (96-108); Creatinine Clr Calc Pharmacy 47.5; Estimated Glomerular Filt Rate 55; Glucose Random 108 mg/dL (60-115); Magnesium 1.8 mg/dL (1.6-2.6); Potassium 4.6 mmol/L (3.3-5.1); Sodium 137 mmol/L (135-145)
[2021-09-28 07:43] LABS: Phosphorus 2.4 mg/dL (2.7-4.5)
[2021-09-28 08:00] VITALS: BP 115/59; PULSE 67; RESP 17; TEMP 37.2; O2SAT 97
[2021-09-28] MEDS: Tamsulosin HCL 0.4 MG CAPSULE PO (08:28)
[2021-09-28] MEDS: Tacrolimus 1 MG CAPSULE PO ×2 (08:28→20:29)
[2021-09-28] MEDS: predniSONE 5 MG TABLET PO (08:28)
[2021-09-28] MEDS: Sertraline HCL 25 MG TABLET PO (08:28)
[2021-09-28] MEDS: Cholecalciferol (Vitamin D3) 25 MCG TABLET 50 MCG PO (08:29)
[2021-09-28] MEDS: Multivitamin TABLET 1 TAB PO (08:29)
[2021-09-28] MEDS: Levothyroxine Sodium 112 MCG TABLET PO (08:29)
[2021-09-28] MEDS: Azithromycin 250 MG TABLET PO (08:33)
[2021-09-28] MEDS: 0.9 % Sodium Chloride 1,000 ML 100 ML IVCONT ×2 (09:05→18:16)
--- NOTE | 2021-09-28 09:53 | PM.GIPN ---
Subjective Subjective Date of Service: 09/28/21 Interval History: Feels better, no vomiting, passing gas no melena Critical Care Time (minutes): 0 Physical Exam Vital Signs: Vital Signs: Last Vital Signs Temp 98.9 F 09/28/21 08:00 Pulse 67 09/28/21 08:00 Resp 17 09/28/21 08:00 BP 115/59 L 09/28/21 08:00 Pulse Ox 97 09/28/21 08:00 BMI result Body Mass Index 20.0 Const: General: alert GI: Other: abdomen soft nontender Objective Data Labs CBC & Chem 7: 09/28/21 06:16 09/28/21 06:16 Procedures Date of Service Date of Service: 09/28/21 Progress Note: A&P Assessment and plan (1) GIB (gastrointestinal bleeding): Status: Acute Assessment and Plan: hct down somewhat, no signs of bleeding may be due to equilibration. hold AC for now bid ppi iv follow hct Fall Risk Details Current Medications: Current Medications Azithromycin (Azithromycin 250 Mg Tablet) 250 mg PO MoWeFr [facility] Last Admin: 09/28/21 08:33 Dose: 250 mg Documented by: Betamethasone Dipropion Augmented (Betamethasone Dip Aug 0.05% Cr 15 Gm Tube) 1 appl TOPICAL BID PRN PRN Reason: Itching Pantoprazole Sodium 80 mg/ (Sodium Chloride) 100 mls @ 10 mls/hr IV .Q10H [facility] Last Admin: 09/28/21 04:55 Dose: 8 mg/hr, 10 mls/hr Documented by: Sodium Chloride (Ns) 1,000 mls @ 100 mls/hr IVCONT .Q10H [facility] Last Admin: 09/28/21 09:05 Dose: 100 mls/hr Documented by: Levothyroxine Sodium (Levothyroxine Sodium 112 Mcg Tablet) 112 mcg PO DAILY [facility] Last Admin: 09/28/21 08:29 Dose: 112 mcg Documented by: Multivitamins/Vitamin C (Multivitamin Tablet) 1 tab PO DAILY [facility] Last Admin: 09/28/21 08:29 Dose: 1 tab Documented by: Prednisone (Prednisone 5 Mg Tablet) 5 mg PO DAILY [facility] Last Admin: 09/28/21 08:28 Dose: 5 mg Documented by: Sertraline HCl (Sertraline Hcl 25 Mg Tablet) 25 mg PO DAILY [facility] Last Admin: 09/28/21 08:28 Dose: 25 mg Documented by: Tacrolimus (Tacrolimus 1 Mg Capsule) 1 mg PO BID [facility] Last Admin: 09/28/21 08:28 Dose: 1 mg Documented by: Tamsulosin HCl (Tamsulosin Hcl 0.4 Mg Capsule) 0.4 mg PO DAILY [facility] Last Admin: 09/28/21 08:28 Dose: 0.4 mg Documented by: Vitamin D (Cholecalciferol (Vitamin D3) 25 Mcg Tablet) 50 mcg PO DAILY [facility] Last Admin: 09/28/21 08:29 Dose: 50 mcg Documented by: Time Spent With Patient Time: Total time spent is greater than 50% in coordination of care (as documented) at patient's floor/unit and/or counseling patient: Time with patient: less than 15 minutes Quality Stroke Does the patient have a stroke diagnosis?: No VTE Prior VTE?: No VTE Risk Level:: Medical - moderate - high VTE Device Contraindication: Procedure Contraindicated VTE Drug Contraindication: Treatment Not Indicated
--- NOTE | 2021-09-28 11:08 | MHC.CM.PN ---
spoke with pt and then called to confirm pt is active with [facility] he reports his tube feedings come in the mail he is indepedent in his adls and is vaxxed x 3 ,he drives ,and his will transpotrt home
--- NOTE | 2021-09-28 11:13 | HO.PM.IMPN ---
Subjective Subjective Date of Service: 09/28/21 Review of Systems Follow up GI Bleed Feeling well today Physical Exam Vital Signs: Vital Signs: Last Vital Signs Temp 98.9 F 09/28/21 08:00 Pulse 67 09/28/21 08:00 Resp 17 09/28/21 08:00 BP 115/59 L 09/28/21 08:00 Pulse Ox 97 09/28/21 08:00 BMI result Body Mass Index 20.0 Appearing in no acute distress lung sounds are clear to auscultation heart regular rate rhythm, clear S1, S2 positive bowel sounds, abdomen is soft, nontender, Gtube neuro patient is alert x3, no focal deficits Objective Data Active Medications Azithromycin (Azithromycin 250 Mg Tablet) 250 mg PO MoWeFr [facility] Last Admin: 09/28/21 08:33 Dose: 250 mg Documented by: PAULETTE Betamethasone Dipropion Augmented (Betamethasone Dip Aug 0.05% Cr 15 Gm Tube) 1 appl TOPICAL BID PRN PRN Reason: Itching Pantoprazole Sodium 80 mg/ (Sodium Chloride) 100 mls @ 10 mls/hr IV .Q10H [facility] Last Admin: 09/28/21 04:55 Dose: 8 mg/hr, 10 mls/hr Documented by: CASTILM Sodium Chloride (Ns) 1,000 mls @ 100 mls/hr IVCONT .Q10H [facility] Last Admin: 09/28/21 09:05 Dose: 100 mls/hr Documented by: PAULETTE Levothyroxine Sodium (Levothyroxine Sodium 112 Mcg Tablet) 112 mcg PO DAILY [facility] Last Admin: 09/28/21 08:29 Dose: 112 mcg Documented by: PAULETTE Multivitamins/Vitamin C (Multivitamin Tablet) 1 tab PO DAILY [facility] Last Admin: 09/28/21 08:29 Dose: 1 tab Documented by: PAULETTE Prednisone (Prednisone 5 Mg Tablet) 5 mg PO DAILY [facility] Last Admin: 09/28/21 08:28 Dose: 5 mg Documented by: PAULETTE Sertraline HCl (Sertraline Hcl 25 Mg Tablet) 25 mg PO DAILY [facility] Last Admin: 09/28/21 08:28 Dose: 25 mg Documented by: PAULETTE Tacrolimus (Tacrolimus 1 Mg Capsule) 1 mg PO BID [facility] Last Admin: 09/28/21 08:28 Dose: 1 mg Documented by: PAULETTE Tamsulosin HCl (Tamsulosin Hcl 0.4 Mg Capsule) 0.4 mg PO DAILY [facility] Last Admin: 09/28/21 08:28 Dose: 0.4 mg Documented by: PAULETTE Vitamin D (Cholecalciferol (Vitamin D3) 25 Mcg Tablet) 50 mcg PO DAILY [facility] Last Admin: 09/28/21 08:29 Dose: 50 mcg Documented by: PAULETTE Labs CBC & Chem 7: 09/28/21 06:16 09/28/21 06:16 Labs: Laboratory Results - last 24 hr 09/26/21 09/27/21 09/28/21 23:08 12:28 06:16 MCV 100.3 H 99.3 H MCH 33.7 H 33.0 MCHC 33.6 33.2 RDW 17.0 H 16.7 H Plt Count 93 L 100 L MPV 9.8 10.1 Absolute Nucleated RBC 0.000 0.000 Nucleated RBC % (auto) 0.0 0.0 Anion Gap Estim Creat Clear Calc Estimated GFR Random Glucose Calcium Phosphorus Magnesium Crossmatch See Detail 09/28/21 06:16 MCV MCH MCHC RDW Plt Count MPV Absolute Nucleated RBC Nucleated RBC % (auto) Anion Gap 10 L Estim Creat Clear Calc 47.5 Estimated GFR 55 Random Glucose 108 Calcium 7.8 L Phosphorus 2.4 L Magnesium 1.8 Crossmatch Microbiology Microbiology Results: Microbiology 09/26/21 21:48 Blood Culture - Preliminary Blood - Venous No growth after 24 hours. 09/26/21 21:10 Blood Culture - Preliminary Blood - Venous No growth after 24 hours. Assessment and Plan (1) GIB (gastrointestinal bleeding): Status: Acute Plan 61 year old man initially admitted to ICU for acute upper GI bleed on Eliquis for PE Acute blood loss anemia secondary to acute GI bleed Gastric lavage done in the ER, 1 unit of packed red blood cells transfused Upper endoscopy found erosive esophagitis with non bleeding vessel at EG junction, single-vessel clipped, Gastritis, no acute bleed found GI following Eliquis on hold, started in August of 2021, will need to continue treatment for at least 6 months for PE, continue to hold for now as per recommendation from GI Transition Protonix infusion to IV stable H&H lactic acidosis. 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 Miranda Full code DVT prophylaxis with scd boots for now due to anemia, bleed Quality Stroke Does the patient have a stroke diagnosis?: No VTE Prior VTE?: No VTE Risk Level:: Medical - moderate - high VTE Device Contraindication: Procedure Contraindicated VTE Drug Contraindication: Treatment Not Indicated
[2021-09-28 11:44] VITALS: BP 109/58; PULSE 64; RESP 16; TEMP 37.2; O2SAT 98
--- NOTE | 2021-09-28 14:10 | MHC.CLN ---
F/U TUBE FEEDING CURRENTLY RUNNING PROMOTE AT 50 ML PER HOUR. MAX GOAL RATE IS 70 ML PER HOUR. MONITOR TUBE FEEDING TOLERANCE, LABS, AND RESIDUALS.
[2021-09-28 16:00] VITALS: BP 108/56; PULSE 70; RESP 18; TEMP 36.7; O2SAT 98
[2021-09-28 19:24] VITALS: BP 137/60; PULSE 66; RESP 18; TEMP 37.3; O2SAT 97
[2021-09-28 23:41] VITALS: BP 102/64; PULSE 66; RESP 18; TEMP 37.1; O2SAT 98
[2021-09-29] VITALS (13 sets, daily range): BP systolic 109–160; BP diastolic 54–79; PULSE 50–72; RESP 16–18; TEMP 36.1–37; O2SAT 98
[2021-09-29] MEDS: Pantoprazole Sodium 80 MG in 0.9 % Sodium Chloride 80 ML 10 MG IV (02:19)
[2021-09-29] MEDS: 0.9 % Sodium Chloride 1,000 ML 100 ML IVCONT ×3 (04:12→22:08)
[2021-09-29 04:47] LABS: Mean Corpuscular HGB Conc 32.8 g/dl (31.0-36.0); Mean Corpuscular Hemoglobin 34.2 pg (27.0-33.0); Mean Corpuscular Volume 104.3 fL (80.0-98.0); Mean Platelet Volume 10.4 fL (9.4-12.4); Red Blood Count 1.87 X10*6/uL (4.60-5.80); Red Cell Distribution Width 16.7 % (11.0-16.0); White Blood Count 3.1 X10*3/uL (4.8-10.8)
[2021-09-29 04:51] LABS: Hemoglobin 6.4 g/dl (14.0-18.0)
[2021-09-29 04:52] LABS: Platelet Count 68 X10*3/uL (160-400)
[2021-09-29 04:53] LABS: Hematocrit 19.5 % (42.0-52.0)
[2021-09-29 05:11] LABS: Anion Gap 9 (12-20); Blood Urea Nitrogen 24 mg/dL (9-16); Calcium 7.5 mg/dL (8.4-10.2); Carbon Dioxide 23 mmol/L (22-29); Chloride 110 mmol/L (96-108); Creatinine Clr Calc Pharmacy 57.1; Estimated Glomerular Filt Rate > 60; Glucose Random 93 mg/dL (60-115); Potassium 4.5 mmol/L (3.3-5.1); Sodium 137 mmol/L (135-145)
--- NOTE | 2021-09-29 08:04 | HO.POSTANES ---
Post Anesthesia Evaluation Post Anesthesia Evaluation Vital Signs: Vital Signs Temp Pulse Resp BP Pulse Ox 09/29/21 07:46 97.5 F 65 18 109/59 L 98 09/29/21 06:15 97.5 F 72 18 118/58 L 09/29/21 05:59 98.1 F 66 18 116/56 L 09/29/21 04:00 98.1 F 18 116/56 L 98 09/28/21 23:41 98.7 F 66 18 102/64 98 Anesthesia: General Endotracheal-GETA Mental Status: Sedated Pain Control: Satisfactory Nausea/Vomiting: None Hydration: Adequate Anesthesia-Related Issues: No Anes. Related Issues
[2021-09-29] MEDS: Levothyroxine Sodium 112 MCG TABLET PO (09:06)
[2021-09-29] MEDS: Tacrolimus 1 MG CAPSULE PO ×2 (09:06→19:58)
[2021-09-29] MEDS: Sertraline HCL 25 MG TABLET PO (09:06)
[2021-09-29] MEDS: Cholecalciferol (Vitamin D3) 25 MCG TABLET 50 MCG PO (09:07)
[2021-09-29] MEDS: Multivitamin TABLET 1 TAB PO (09:07)
[2021-09-29] MEDS: predniSONE 5 MG TABLET PO (09:07)
[2021-09-29] MEDS: Tamsulosin HCL 0.4 MG CAPSULE PO (09:07)
--- NOTE | 2021-09-29 11:36 | P.CDIC_ITS ---
CDI Concurrent Query Documentation Clarification: PHYSICIAN'S DOCUMENTATION REQUEST Date of Query: 09/29/21 1136 Patient Name: Ezio Curtis Admit Date: 09/27/21 Dear Doctor, A review of the medical record indicates additional documentation may be needed. Please review below and update the documentation accordingly. Risk Factors/Clinical Indicators/Treatments ED: 09/26 History of CKD Cr. 1.19 GFR >60 Acute kidney injury due to hypoperfusion w bun and cr ratio of 33. Based on the above, could you clarify in the Progress Notes the appropriate diagnosis, if significant, that supports the above abnormalities and additional evaluation, monitoring, and/or treatment rendered: Specifics to a diagnosis: * Chronic kidney disease Stage 1-5 * Acute on chronic kidney disease Stage 1-5 * Other (please specify) * Unable to determine Use of terms such as suspected, likely, concern for, or probable (associated with a specific diagnosis that is being evaluated, monitored, or treated as if it exists) are acceptable and can be coded in the inpatient setting, when documented at the time of discharge. Thank you, Marjan Oropeza [facility], CDIS Extension: [phone] Please use your independent medical judgment in providing your response. THIS QUERY IS PART OF THE PERMANENT MEDICAL RECORD Provider Response: CKD Stage 2
--- NOTE | 2021-09-29 12:58 | HO.PM.IMPN ---
Subjective Subjective Date of Service: 09/30/21 Review of Systems Follow up GI Bleed Feeling well today Physical Exam Vital Signs: Vital Signs: Last Vital Signs Temp 97.9 F 09/29/21 12:05 Pulse 50 09/29/21 12:05 Resp 16 09/29/21 12:05 BP 119/57 L 09/29/21 12:05 Pulse Ox 98 09/29/21 11:51 BMI result Body Mass Index 20.0 Appearing in no acute distress lung sounds are clear to auscultation heart regular rate rhythm, clear S1, S2 positive bowel sounds, abdomen is soft, nontender neuro patient is alert x3, no focal deficits Gtube Objective Data Active Medications Azithromycin (Azithromycin 250 Mg Tablet) 250 mg PO MoWeFr [facility] Last Admin: 09/28/21 08:33 Dose: 250 mg Documented by: PAULETTE Betamethasone Dipropion Augmented (Betamethasone Dip Aug 0.05% Cr 15 Gm Tube) 1 appl TOPICAL BID PRN PRN Reason: Itching Pantoprazole Sodium 80 mg/ (Sodium Chloride) 100 mls @ 10 mls/hr IV .Q10H [facility] Last Admin: 09/29/21 02:19 Dose: 8 mg/hr, 10 mls/hr Documented by: MACK Sodium Chloride (Ns) 1,000 mls @ 100 mls/hr IVCONT .Q10H [facility] Last Admin: 09/29/21 04:27 Dose: 100 mls/hr Documented by: MACK Levothyroxine Sodium (Levothyroxine Sodium 112 Mcg Tablet) 112 mcg PO DAILY [facility] Last Admin: 09/29/21 09:06 Dose: 112 mcg Documented by: SHA Multivitamins/Vitamin C (Multivitamin Tablet) 1 tab PO DAILY [facility] Last Admin: 09/29/21 09:07 Dose: 1 tab Documented by: SHA Prednisone (Prednisone 5 Mg Tablet) 5 mg PO DAILY [facility] Last Admin: 09/29/21 09:07 Dose: 5 mg Documented by: SHA Sertraline HCl (Sertraline Hcl 25 Mg Tablet) 25 mg PO DAILY [facility] Last Admin: 09/29/21 09:06 Dose: 25 mg Documented by: SHA Tacrolimus (Tacrolimus 1 Mg Capsule) 1 mg PO BID [facility] Last Admin: 09/29/21 09:06 Dose: 1 mg Documented by: SHA Tamsulosin HCl (Tamsulosin Hcl 0.4 Mg Capsule) 0.4 mg PO DAILY [facility] Last Admin: 09/29/21 09:07 Dose: 0.4 mg Documented by: SHA Vitamin D (Cholecalciferol (Vitamin D3) 25 Mcg Tablet) 50 mcg PO DAILY [facility] Last Admin: 09/29/21 09:07 Dose: 50 mcg Documented by: SHA Labs CBC & Chem 7: 09/30/21 05:22 09/30/21 05:22 Labs: Laboratory Results - last 24 hr 09/26/21 09/29/21 09/29/21 23:08 04:20 04:20 MCV 104.3 H D MCH 34.2 H MCHC 32.8 RDW 16.7 H Plt Count 68 L D MPV 10.4 Absolute Nucleated RBC 0.000 Nucleated RBC % (auto) 0.0 Smear Path Review SEE NOTE Anion Gap 9 L Estim Creat Clear Calc 57.1 Estimated GFR > 60 Random Glucose 93 Calcium 7.5 L Blood Type A Positive Antibody Screen NEGATIVE Crossmatch See Detail Microbiology Microbiology Results: Microbiology 09/26/21 21:48 Blood Culture - Preliminary Blood - Venous No growth after 48 hours. 09/26/21 21:10 Blood Culture - Preliminary Blood - Venous No growth after 48 hours. Assessment and Plan (1) GIB (gastrointestinal bleeding): Status: Acute Plan 61 year old man initially admitted to ICU for acute upper GI bleed on Eliquis for PE Acute blood loss anemia secondary to acute GI bleed Gastric lavage done in the ER, 1 unit of packed red blood cells transfused Upper endoscopy found erosive esophagitis with non bleeding vessel at EG junction, single-vessel clipped, Gastritis, no acute bleed found GI following Eliquis on hold, started in August of 2021, will need to continue treatment for at least 6 months for PE, continue to hold for now as per recommendation from GI Transition Protonix infusion to IV stable H&H HH 6.4/19.5 today, 1 unit PRBC ordered repeat CBC lactic acidosis. 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 Miranda Full code DVT prophylaxis with scd boots for now due to anemia, bleed Quality Stroke Does the patient have a stroke diagnosis?: No VTE Prior VTE?: No VTE Risk Level:: Medical - moderate - high VTE Device Contraindication: Procedure Contraindicated VTE Drug Contraindication: Treatment Not Indicated
[2021-09-29 13:11] LABS: Hematocrit 37.1 % (42.0-52.0); Hemoglobin 12.4 g/dl (14.0-18.0); Mean Corpuscular HGB Conc 33.4 g/dl (31.0-36.0); Mean Corpuscular Hemoglobin 32.7 pg (27.0-33.0); Mean Corpuscular Volume 97.9 fL (80.0-98.0); Mean Platelet Volume 10.1 fL (9.4-12.4); Red Blood Count 3.79 X10*6/uL (4.60-5.80); Red Cell Distribution Width 15.9 % (11.0-16.0); White Blood Count 6.5 X10*3/uL (4.8-10.8)
[2021-09-29 13:15] LABS: Platelet Count 89 X10*3/uL (160-400)
--- NOTE | 2021-09-29 14:16 | MHC.CLN ---
F/U REVIEWED LABS-UNREMARKABLE PT RECEIVING TF PROMOTE AT MAX GOAL RATE 70ML/HR WITH 120ML FREE WATER FLUSHES Q SHIFT PROVIDES 1680KCALS (28.9KCALS/KG), 105G PROTEIN (1.8G/KG), 1769ML TOTAL WATER FROM FORMULA AND FLUSH (30.4ML/KG). NSG REPORTED TOLERATING WELL AT MAX GOAL RATE CONTINUE TO MONITOR TOLERANCE, RESIDUALS AND LYTES
--- NOTE | 2021-09-29 16:12 | MHC.CM.PN ---
Emr reviewed, pt transfused 1 unit prbc's today for Hgb 6.4, antic pt will d/c 1-2 days home w/resump of [facility] and for transport.
[2021-09-30] MEDS: Pantoprazole Sodium 80 MG in 0.9 % Sodium Chloride 80 ML 10 MG IV (01:26)
[2021-09-30 03:59] VITALS: BP 122/62; PULSE 60; RESP 17; TEMP 36.9; O2SAT 98
--- NOTE | 2021-09-30 04:41 | PC.NURSE ---
Lizet from blood bank had contacted this RN to inquire about a documentation in the TAR that made it appear as if the first unit of blood received infused 0 mL. That was an error on my part by entering 0 mL into the Intake column instead of the Container Volume column. This RN unable to edit in the TAR at this time.
[2021-09-30 05:49] LABS: Hematocrit 36.4 % (42.0-52.0); PLT CLUMP 1
[2021-09-30 05:51] LABS: Mean Corpuscular Hemoglobin 32.3 pg (27.0-33.0); Mean Corpuscular Volume 98.1 fL (80.0-98.0); Mean Platelet Volume 10.3 fL (9.4-12.4); Red Blood Count 3.71 X10*6/uL (4.60-5.80); Red Cell Distribution Width 16.3 % (11.0-16.0)
[2021-09-30 05:52] LABS: Platelet Count 85 X10*3/uL (160-400); White Blood Count 5.2 X10*3/uL (4.8-10.8)
[2021-09-30 06:16] LABS: Anion Gap 9 (12-20); Blood Urea Nitrogen 25 mg/dL (9-16); Calcium 7.8 mg/dL (8.4-10.2); Carbon Dioxide 22 mmol/L (22-29); Chloride 109 mmol/L (96-108); Glucose Random 93 mg/dL (60-115); Potassium 4.9 mmol/L (3.3-5.1); Sodium 135 mmol/L (135-145)
[2021-09-30 06:28] LABS: Creatinine Clr Calc Pharmacy 62.2; Estimated Glomerular Filt Rate > 60
[2021-09-30 07:44] VITALS: BP 118/58; PULSE 60; RESP 16; TEMP 36.8; O2SAT 97
[2021-09-30] MEDS: Pantoprazole Sodium 40 MG/10 ML VIAL IVPUSH ×2 (08:11→16:08)
[2021-09-30] MEDS: Levothyroxine Sodium 112 MCG TABLET PO (08:15)
[2021-09-30] MEDS: Tamsulosin HCL 0.4 MG CAPSULE PO (08:15)
[2021-09-30] MEDS: Cholecalciferol (Vitamin D3) 25 MCG TABLET 50 MCG PO (08:15)
[2021-09-30] MEDS: predniSONE 5 MG TABLET PO (08:15)
[2021-09-30] MEDS: Sertraline HCL 25 MG TABLET PO (08:15)
[2021-09-30] MEDS: Tacrolimus 1 MG CAPSULE PO ×2 (08:15→21:42)
[2021-09-30] MEDS: Multivitamin TABLET 1 TAB PO (08:16)
[2021-09-30] MEDS: Azithromycin 250 MG TABLET PO (08:18)
[2021-09-30] MEDS: 0.9 % Sodium Chloride 1,000 ML 100 ML IVCONT ×2 (08:21→17:26)
--- NOTE | 2021-09-30 08:30 | P.PNIM_ITS ---
Subjective Subjective Date of Service: 09/30/21 Review of Systems Follow up GI Bleed Feeling well today Physical Exam Vital Signs: Vital Signs: Last Vital Signs Temp 98.2 F 09/30/21 07:44 Pulse 60 09/30/21 07:44 Resp 16 09/30/21 07:44 BP 118/58 L 09/30/21 07:44 Pulse Ox 97 09/30/21 07:44 BMI result Body Mass Index 20.0 Appearing in no acute distress lung sounds are clear to auscultation heart regular rate rhythm, clear S1, S2 positive bowel sounds, abdomen is soft, nontender neuro patient is alert x3, no focal deficits Objective Data Active Medications Azithromycin (Azithromycin 250 Mg Tablet) 250 mg PO MoWeFr [facility] Last Admin: 09/30/21 08:18 Dose: 250 mg Documented by: SHA Betamethasone Dipropion Augmented (Betamethasone Dip Aug 0.05% Cr 15 Gm Tube) 1 appl TOPICAL BID PRN PRN Reason: Itching Sodium Chloride (Ns) 1,000 mls @ 100 mls/hr IVCONT .Q10H [facility] Last Admin: 09/30/21 08:21 Dose: 100 mls/hr Documented by: SHA Levothyroxine Sodium (Levothyroxine Sodium 112 Mcg Tablet) 112 mcg PO DAILY [facility] Last Admin: 09/30/21 08:15 Dose: 112 mcg Documented by: SHA Multivitamins/Vitamin C (Multivitamin Tablet) 1 tab PO DAILY [facility] Last Admin: 09/30/21 08:16 Dose: 1 tab Documented by: SHA Pantoprazole Sodium (Pantoprazole Sodium 40 Mg/10 Ml Vial) 40 mg IVPUSH BID@0630,1630 [facility] Last Admin: 09/30/21 08:11 Dose: 40 mg Documented by: SHA Prednisone (Prednisone 5 Mg Tablet) 5 mg PO DAILY [facility] Last Admin: 09/30/21 08:15 Dose: 5 mg Documented by: SHA Sertraline HCl (Sertraline Hcl 25 Mg Tablet) 25 mg PO DAILY [facility] Last Admin: 09/30/21 08:15 Dose: 25 mg Documented by: SHA Tacrolimus (Tacrolimus 1 Mg Capsule) 1 mg PO BID [facility] Last Admin: 09/30/21 08:15 Dose: 1 mg Documented by: HO.DABA Tamsulosin HCl (Tamsulosin Hcl 0.4 Mg Capsule) 0.4 mg PO DAILY [facility] Last Admin: 09/30/21 08:15 Dose: 0.4 mg Documented by: SHA Vitamin D (Cholecalciferol (Vitamin D3) 25 Mcg Tablet) 50 mcg PO DAILY [facility] Last Admin: 09/30/21 08:15 Dose: 50 mcg Documented by: SHA Labs CBC & Chem 7: 09/30/21 05:22 09/30/21 05:22 Labs: Laboratory Results - last 24 hr 09/26/21 09/29/21 09/29/21 23:08 04:20 12:49 MCV 97.9 D MCH 32.7 MCHC 33.4 RDW 15.9 Plt Count 89 L D MPV 10.1 Absolute Nucleated RBC 0.000 Nucleated RBC % (auto) 0.0 Smear Path Review SEE NOTE Anion Gap Estim Creat Clear Calc Estimated GFR Random Glucose Calcium Blood Type A Positive Antibody Screen NEGATIVE Crossmatch See Detail 09/30/21 09/30/21 05:22 05:22 MCV 98.1 H MCH 32.3 MCHC 33.0 RDW 16.3 H Plt Count 85 L MPV 10.3 Absolute Nucleated RBC 0.000 Nucleated RBC % (auto) 0.0 Smear Path Review Anion Gap 9 L Estim Creat Clear Calc 62.2 Estimated GFR > 60 Random Glucose 93 Calcium 7.8 L Blood Type Antibody Screen Crossmatch Assessment and Plan (1) GIB (gastrointestinal bleeding): Status: Acute Plan 61 year old man initially admitted to ICU for acute upper GI bleed on Eliquis for PE Acute blood loss anemia secondary to acute GI bleed Gastric lavage done in the ER, 1 unit of packed red blood cells transfused Upper endoscopy found erosive esophagitis with non bleeding vessel at EG junction, single-vessel clipped, Gastritis, no acute bleed found GI following Eliquis on hold, started in August of 2021, will need to continue treatment for at least 6 months for PE, continue to hold for now as per recommendation from GI Transition Protonix infusion to IV stable H&H HH 6.4/19.5(09/29), 1 unit PRBC tx repeat CBC 12.4/37.1 Diarrhea. Likely from continuous feeds Stop continuous tube feeds, start bolus (bolus feeds at home) lactic acidosis. 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 Romero Full code DVT prophylaxis with scd boots for now due to anemia, bleed Quality Stroke Does the patient have a stroke diagnosis?: No VTE Prior VTE?: No VTE Risk Level:: Medical - moderate - high VTE Device Contraindication: Procedure Contraindicated VTE Drug Contraindication: Treatment Not Indicated
--- NOTE | 2021-09-30 10:02 | MHC.CLN ---
F/U PATIENT STATED THAT HAVING FREQUENT BOWEL MOVEMENTS, 2-3 PER HOUR, AND SUSPECTS THAT CONTINUOUS FEEDING IS A FACTOR. OFFERED PATIENT CHOICE OF BOLUS FEEDINGS OR NOCTURNAL FEEDING. PATIENT WOULD LIKE BOLUS FEEDINGS. RECOMMEND PROMOTE VIA BOLUS 350 ML FIVE TIMES DAILY. FLUSH 120 ML WATER EVERY 8 HOURS. TUBE FEEDING PLUS FLUSH PROVIDES 1750 KCAL (30.1 KCALS/KG); 109 G PROTEIN (1.87 G/KG); FORMULA PLUS ZSOSU=9687 ML WATER (31.4 ML/KG). LABS REVIEWED AND UNREMARKABLE. CONTINUE TO MONITOR TOLERANCE, RESIDUALS AND LYTES.
[2021-09-30 11:42] VITALS: BP 127/67; PULSE 61; RESP 17; TEMP 37; O2SAT 97
[2021-09-30 15:45] VITALS: BP 117/57; PULSE 62; RESP 16; TEMP 36.7; O2SAT 97
--- NOTE | 2021-09-30 16:35 | MHC.CM.PN ---
PER MULTIDISCIPLINARY ROUNDS PT IMPROVING, TRANSFUSED YESTERDAY 09/29, WILL MONITOR H&H AND POSSIBLE D/C TOMORROW 10/01/21. CM WILL CONT TO FOLLOW D/C NEEDS DCP: HOME W/RESUMP OF [facility] FOR DELIVERY OF TUBE FEEDS W/ FOR TRANSPORT.
[2021-09-30 20:00] VITALS: BP 130/59; PULSE 62; RESP 18; TEMP 36.9; O2SAT 97
[2021-10-01] VITALS: BP 96/51; PULSE 60; RESP 16; TEMP 36.8; O2SAT 97
[2021-10-01 04:00] VITALS: BP 125/63; PULSE 54; RESP 15; TEMP 36.9; O2SAT 100
[2021-10-01] MEDS: 0.9 % Sodium Chloride 1,000 ML 100 ML IVCONT (04:00)
[2021-10-01] MEDS: Pantoprazole Sodium 40 MG/10 ML VIAL IVPUSH (05:46)
[2021-10-01 07:53] VITALS: BP 117/54; PULSE 58; RESP 18; TEMP 36.4; O2SAT 99
[2021-10-01] MEDS: Cholecalciferol (Vitamin D3) 25 MCG TABLET 50 MCG PO (08:05)
[2021-10-01] MEDS: Levothyroxine Sodium 112 MCG TABLET PO (08:06)
[2021-10-01] MEDS: Sertraline HCL 25 MG TABLET PO (08:06)
[2021-10-01] MEDS: predniSONE 5 MG TABLET PO (08:07)
[2021-10-01] MEDS: Tacrolimus 1 MG CAPSULE PO (08:07)
[2021-10-01] MEDS: Tamsulosin HCL 0.4 MG CAPSULE PO (08:07)
[2021-10-01] MEDS: Multivitamin TABLET 1 TAB PO (08:07)
[2021-10-01 08:32] LABS: Hematocrit 35.1 % (42.0-52.0); Hemoglobin 11.8 g/dl (14.0-18.0)
--- NOTE | 2021-10-01 11:13 | P.DS_ITS ---
DS: Providers Provider Date of Service: 10/01/21 <GHULAM Fairbanks - Last Filed: 10/02/21 10:52> Date of admission: 09/27/21 01:47 <GHULAM Fairbanks - Last Filed: 10/02/21 10:52> Date of discharge: 10/01/21 <GHULAM Fairbanks - Last Filed: 10/02/21 10:52> Primary care physician: Deepali Posada MD <GHULAM Fairbanks - Last Filed: 10/02/21 10:52> Attending physician on discharge: Cornelius Valdez <GHULAM Fairbanks - Last Filed: 10/02/21 10:52> Discharging clinician: Jo Ann Vera <GHULAM Fairbanks - Last Filed: 10/02/21 10:52> DS: Diagnosis Discharge Diagnosis (1) GIB (gastrointestinal bleeding): Status: Acute <GHULAM Fairbanks - Last Filed: 10/02/21 10:52> (2) Erosive esophagitis: Status: Acute <GHULAM Fairbanks - Last Filed: 10/02/21 10:52> (3) Gastritis: Status: Acute <GHULAM Fairbanks - Last Filed: 10/02/21 10:52> (4) Lactic acidosis: Status: Acute <GHULAM Fairbanks - Last Filed: 10/02/21 10:52> (5) Head and neck cancer: Status: Acute <GHULAM Fairbanks - Last Filed: 10/02/21 10:52> DS: Summary Hospital Course Hospital Course: From H&P on day of admission 61-year-old patient with underlying history of pulmonary fibrosis status post 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 In addition the patient had a couple coffee-ground emesis episodes including 1 in the ER.? He reported maroon stools, the patient had become somewhat dizzy which prompted his to call EMS. In the emergency room the patient was noted to be hemodynamically stable, with section 1 episode of blood pressure 98/53.? His workup revealed a white count 5.7, H&H of 8.7 and 25.8 respectively but these decreased to 7.5 and 21.8 after 1 episode of hematemesis here.? A gastric lavage had been done in the ER without active bleeding.? Patient did receive 1 unit packed red blood cells and his current H&H is 8.3 and 24, platelet count is 124.? Initial lactic acid 3.8 but it improved to 2.5.? BUN of 43, creatinine of 1.33 albumin 2.6.? Stool occult blood was positive and COVID negative.? Patient had a abdominal and pelvis CT study which is not pending. Patient was started on IV Protonix, Kcentra and vitamin K had been given.? Straw Hat Brim Cutter Operator Dr. Rueda has been contacted and the consensus was that the patient does not need to be scoped at this point and this procedure will happen in the morning.? For now the patient will be transferred to the ICU for close monitoring given the concern of recurrent bleeding.? Currently patient has no more complaints. Acute blood loss anemia secondary to acute GI bleed Gastric lavage done in the ER, 1 unit of packed red blood cells transfused. He was initially admitted to ICU for close monitoring. He was seen in consultation by GI and he underwent Upper endoscopy on 09/27 showing erosive esophagitis with non bleeding vessel at EG junction, single-vessel clipped, Gastritis, no active bleeding. Eliquis was placed on hold. His protonix infusion was changed to IV bid and will be transitioned to oral omeprazole bid for one month on discharge, after which can be changed to once daily. He required additional blood transfusion on 09/29 but has been stable since and no evidence of recurrent bleeding. Case discussed with GI, plan to resume Eliquis on discharge. Will repeat CBC on Tuesday. Should call to schedule follow up with PCP and monitor for signs of bleeding. H/H on day of discharge 11.8/35.1. Biopsy from EGD (stomach, antrum) pending at the time of discharge. PE. Eliquis initially held due to GI bleeding. After discussion with GI, will resume Eliquis this evening and repeat CBC on Tuesday. Call to schedule follow up with PCP for close monitoring. Started on continuous tube feeds initially but changed to bolus feedings. Seen by nutrition, RECOMMEND PROMOTE VIA BOLUS 350 ML FIVE TIMES DAILY. FLUSH 120 ML WATER EVERY 8 HOURS. lactic acidosis.? Resolved. Likely secondary to anemia, dehydration History of throat cancer. Completed 5 weeks of radiation therapy in August at [facility]. G-tube placement at that time, takes nothing orally. Recommend outpatient follow up. History of bilateral lung transplant 10 years ago. Continued on anti rejection medications. <GHULAM Fairbanks - Last Filed: 10/02/21 10:52> Time Spent with Patient Time attestation: Total time spent providing and/or coordinating discharge services: <GHULAM Fairbanks - Last Filed: 10/02/21 10:52> Discharge coordination time: Greater than 30 minutes <GHULAM Fairbanks - Last Filed: 10/02/21 10:52> Quality: Stroke Does the patient have a stroke diagnosis?: No <GHULAM Fairbanks Last Filed: 10/02/21 10:52> Physical Exam Vital Signs: Vital Signs: Last Vital Signs Temp 97.5 F 10/01/21 07:53 Pulse 58 10/01/21 07:53 Resp 18 10/01/21 07:53 BP 117/54 L 10/01/21 07:53 Pulse Ox 99 10/01/21 07:53 BMI result Body Mass Index 20.0 <GHULAM Fairbanks - Last Filed: 10/02/21 10:52> DS: Data Data Completed and Pending Pending studies at discharge: Pending at discharge 09/27/21 08:37 Surgical [PTH] Routine <GHULAM Fairbanks Last Filed: 10/02/21 10:52> Labs on day of discharge: Laboratory Results - last 24 hr 10/01/21 08:20 Hgb 11.8 L Hct 35.1 L Preliminary micro results at discharge 09/26/21 21:48 Blood Culture - Preliminary Blood - Venous No growth after 48 hours. 02/19/22 21:10 Blood Culture - Preliminary Blood - Venous No growth after 48 hours. <GHULAM Fairbanks - Last Filed: 10/02/21 10:52> Discharge Plan Discharge Patient Disposition: Home Health Service <GHULAM Fairbanks - Last Filed: 10/02/21 10:52> Discharge Diagnosis: Acute GI bleeding erosive esophagitis/gastritis <GHULAM Fairbanks - Last Filed: 10/02/21 10:52> Referrals: [facility] [Other] - 1 Day (resumption of your serbvices for nursing for medication reconcilation and tube feedings assessment pcpdr deepali posada patient instructed to call for post hospitla discharge follow up transportation family tube feeding mailed to patients home ) [facility] for tube feedings [Other] - 1 Day (resumpiton of your services for tube ffeedings and all related supplies promoytte via bolus 350 cc 5 x daily flush 120 cc water q 8hrs, ) Deepali Posada MD [Primary Care Provider] - 1 Week <GHULAM Fairbanks - Last Filed: 10/02/21 10:52> Discharge Medications: New omeprazole 20 mg capsule,delayed release(DR/EC) 20 mg PO BID 30 Days Qty: 60 0RF Continued prednisone 5 mg tablet 1 tab feeding tube DAILY 0RF lorazepam 0.5 mg tablet 1 tab feeding tube DAILY 0RF clobetasol 0.05 % ointment 1 applic topical BID PRN (Reason: Itching) 0RF tacrolimus 1 mg capsule 1 cap feeding tube BID 0RF levothyroxine 112 mcg tablet 1 tab feeding tube DAILY 0RF Eliquis 5 mg tablet 1 tab feeding tube BID 0RF azithromycin 250 mg tablet 1 tab feeding tube 3XW 0RF tamsulosin 0.4 mg capsule 1 cap PO DAILY 0RF sertraline 25 mg tablet 1 tab feeding tube DAILY 0RF multivitamin Tablet 1 tab feeding tube DAILY 0RF cholecalciferol (vitamin D3) [Vitamin D3] 50 mcg (2,000 unit) Tablet 50 mcg feeding tube DAILY 0RF Discontinued famotidine 20 mg tablet 1 tab feeding tube DAILY 0RF <GHULAM Fairbanks - Last Filed: 10/02/21 10:52> Discharge Orders: Discharge Order (Routine); Ordered 10/01/21 Ordered By: Jo Ann Vera <GHULAM Fairbanks - Last Filed: 10/02/21 10:52> Diet: advance to usual diet <GHULAM Fairbanks - Last Filed: 10/02/21 10:52> Activity on Discharge: As tolerated <GHULAM Fairbanks - Last Filed: 10/02/21 10:52> Stand Alone Forms: Patient Portal Discharge page <GHULAM Fairbanks - Last Filed: 10/02/21 10:52> Other Ambulatory Orders: Complete Blood Count no Diff (Routine) Timeframe: [id number] Facility: [facility] - Location: Laboratory Ordered By: Jo Ann Vera <GHULAM Fairbanks - Last Filed: 10/02/21 10:52> Care Plan Goals: see below <GHULAM Fairbanks - Last Filed: 10/02/21 10:52> Health Concerns: acute GI bleeding secondary to erosive esophagitis/gastritis Pulmonary embolism SCC of head/neck <GHULAM Fairbanks - Last Filed: 10/02/21 10:52> Plan of Treatment: you have been started on omeprazole twice daily for one month, after that can decrease to once daily. femotidine has been stopped your Eliquis can be resumed this evening for treatment of PE. Monitor for signs of bleeding. repeat CBC will be ordered for Tuesday to monitor blood numbers, please follow up with PCP for results Tube feeds changed to bolus feeds: PROMOTE VIA BOLUS 350 ML FIVE TIMES DAILY. FLUSH 120 ML WATER EVERY 8 HOURS. Do no take NSAIDs (ibuprofen, aspirin, motrin or other similar medications) without discussion with your medical providers Continue all other medications as prescribed please call to schedule follow up appointment with PCP <GHULAM Fairbanks - Last Filed: 10/02/21 10:52> Assessment: see discharge summary <GHULAM Fairbanks - Last Filed: 10/02/21 10:52> Discharge Date/Time: 10/01/21 14:45 <GHULAM Fairbanks - Last Filed: 10/02/21 10:52>
[2021-10-01 11:42] VITALS: BP 102/52; PULSE 61; RESP 18; TEMP 36.3; O2SAT 99
[2021-10-01 12:13] VITALS: BP 114/51; PULSE 61; RESP 18
--- NOTE | 2021-10-01 12:21 | W.MHC.F2F ---
Service Date Service Date: 10/01/21 Encounter Date of encounter: 10/01/21 Reasons for Services Signs and symptoms assessed: change in tube feeding diet RECOMMEND PROMOTE VIA BOLUS 350 ML FIVE TIMES DAILY. FLUSH 120 ML WATER EVERY 8 HOURS. Reason for penitentiary: other (change in tube feeding diet ) Overseeing Care: Suellen Posada Homebound: Leaving the home is medically contraindicated at this time without the asist of a device and/or another person due th the listed conditions above and below. Reason homebound: weakness related to hospital stay Certification: Based on the above findings, I certify that this patient is confined to the home and needs intermittent penitentiary care, physical therapy and/or speech therapy, or continues to need occupational therapy. The patient is under my care, and I have initiated the establishment of the plan of care. The patient will be followed by a physician who will periodically review the plan of care.
--- NOTE | 2021-10-01 14:35 | MHC.CM.PN ---
nurse rn case manager hospice noted , electronic medical record reviewed along with case discussed with hospitlasist , and form setter supervisor , patient medicare immm updated and clinical information sent to [facility] and to bev for his home tube feeding with d/c summary and dischagre instructions ,. discharge home with [facility] for nrusing for tube feedings and medication reconcilation and diagnosis sign /symptom management and detailed plan of whom to call ,when to clal and for what transportjeffrey family , medicare immm updated
== END 2021-10-01 14:45 | disposition home health service (06) | DRG 368 ==
LOC: HO.ED 21:56 → HO.EDOVER 09-27 01:51 → HO.ICU 09-27 02:30 → HO.S3 09-27 19:13
PROVIDERS: Anesthesiology; Internal Medicine Gastroenterology; Nurse Practitioner Acute Care; Nurse Practitioner Family; Admitting Provider Physician Assistant Medical; Emergency Provider Internal Medicine; PCP Internal Medicine; Visit Provider Physician Assistant Medical
PROC: 0DJ08ZZ Inspection of Upper Intestinal Tract, Via Natural or Artificial Opening Endoscopic (ICD-10-PCS; CPT 43235; principal; 2021-09-27 08:00)
DX: K20.91 Esophagitis, unspecified with bleeding (principal); K29.71 Gastritis, unspecified, with bleeding; Z94.2 Lung transplant status; D62 Acute posthemorrhagic anemia; N17.9 Acute kidney failure, unspecified; E87.2 Acidosis; Z20.822 Contact with and (suspected) exposure to COVID-19; Z93.1 Gastrostomy status; E03.9 Hypothyroidism, unspecified; N18.2 Chronic kidney disease, stage 2 (mild); E86.0 Dehydration; D63.1 Anemia in chronic kidney disease; Z85.21 Personal history of malignant neoplasm of larynx; Z92.3 Personal history of irradiation; Z79.01 Long term (current) use of anticoagulants; Z79.52 Long term (current) use of systemic steroids; Z79.890 Hormone replacement therapy; Z79.899 Other long term (current) drug therapy
CPT/HCPCS: 36415; 36430; 71045; 74178; 80048; 80053; 80076; 82272; 83605; 83735; 84100; 85014; 85018; 85025; 85027; 85610; 86850; 86900; 86901; 86923; 87040; 87635; 88305; 88342; 93005; 96365; 96367; 96375; 96376; 99285; 99291; 99292; J0171; J2354; J2405; J2765; J3010; J3430; J7168; P9016; P9047; Q9967

== ENCOUNTER 2021-11-16 11:41 | Inpatient (IN) | payer OTHER, SELFPAY ==
--- NOTE | ~2021-11-16 | CT_ITS ---
EXAMINATION: CT CERVICAL SPINE WITHOUT CONTRAST CLINICAL INFORMATION: Fall. Neck pain. COMPARISON: None TECHNIQUE: Axial images through the cervical spine without contrast. Sagittal and coronal reconstructions on the technologist workstation were performed. This CT examination was performed using dose optimization techniques as appropriate, variously including the following: *Automated exposure control *Adjustment of mA and/or kV according to patient size (this includes techniques or standardized protocols for targeted exams where dose is matched to indication/reason for exam; i.e. extremities or head) *Use of iterative reconstruction technique DLP: 343 mGy-cm FINDINGS: Bone alignment is normal. No fracture or dislocation is seen. There is mild degenerative spondylosis and disc space narrowing at C4-C5, C6-C7 and C7-T1. Prevertebral soft tissues are normal. There is left carotid calcification. The visualized lung apices are clear. There is soft tissue opacification of the left mastoid air cells. CT/CT cervical spine wo con IMPRESSION: Degenerative changes. No fracture or dislocation seen. Fleischner guidelines were followed.
--- NOTE | ~2021-11-16 | CT_ITS ---
EXAMINATION: CT HEAD WITHOUT CONTRAST CLINICAL INFORMATION: Fall. Patient on blood thinning medicine. COMPARISON: None TECHNIQUE: Contiguous axial imaging was performed from the skull base to vertex without intravenous administration of contrast. This CT examination was performed using dose optimization techniques as appropriate, variously including the following: *Automated exposure control *Adjustment of mA and/or kV according to patient size (this includes techniques or standardized protocols for targeted exams where dose is matched to indication/reason for exam; i.e. extremities or head) *Use of iterative reconstruction technique DLP: 898 mGy-cm FINDINGS: There is no evidence of acute intracranial hemorrhage or territorial infarction. No abnormal mass effect or midline shift is seen. Hopper to white matter differentiation is well preserved. No extra-axial fluid collections are identified. The ventricles are normal in size. There is no abnormal attenuation within the brain parenchyma. No skull fracture is seen. There are degenerative changes at the temporomandibular joints. There is soft tissue opacification of the left mastoid air cells. Visualized paranasal sinuses, right mastoid air cells and middle ears are otherwise clear. CT/CT head/brain wo con IMPRESSION: No acute intracranial findings.
[2021-11-16 11:51] VITALS: BP 112/49; PULSE 82; RESP 18; TEMP 36.6; O2SAT 97; BMI 21.0
--- NOTE | 2021-11-16 11:56 | ED.GENADULT ---
HPI - General Adult General Chief complaint: Dizziness Stated complaint: DIZZY W/FALLS Time Seen by Provider: 11/16/21 11:53 Source: patient and EMS Mode of arrival: EMS Limitations: no limitations History of Present Illness HPI narrative: Patient comes to the emergency room by EMS complaining of multiple falls, lightheadedness, nausea vomiting for 4 days. Patient denies hitting his head his states he did, did not lose consciousness. Patient is on Eliquis. Patient currently complaining of nausea and generalized malaise. Patient states that he has been feeling too weak to even feed himself through his G-tube. Patient is a 61-year-old patient with underlying history of pulmonary fibrosis status post bilateral lung transplant 10 years ago on prednisone, atovaquone, tacrolimus daily, patient had been recently admitted and discharged from [facility] on September 07 of this year after receiving 5 weeks of radiation therapy and placement of the feeding tube due to protein calorie malnutrition syndrome and swallowing issues. ?History of PE for which he is on Eliquis, history of chronic kidney disease, tongue and throat cancer status post radiation therapy with G-tube placement, hypothyroidism. Related Data Home Medications Medication Instructions Recorded Confirmed apixaban 5 mg tablet (Eliquis) 1 tab FEEDING TUBE BID 09/26/21 09/27/21 clobetasol 0.05 % topical ointment 1 applic TOPICAL BID PRN 09/26/21 09/27/21 levothyroxine 112 mcg tablet 1 tab FEEDING TUBE DAILY 09/26/21 09/27/21 lorazepam 0.5 mg tablet 1 tab FEEDING TUBE DAILY 09/26/21 09/27/21 prednisone 5 mg tablet 1 tab FEEDING TUBE DAILY 09/26/21 09/27/21 tacrolimus 1 mg capsule, 1 cap FEEDING TUBE BID 09/26/21 09/27/21 immediate-release azithromycin 250 mg tablet 1 tab FEEDING TUBE 3XW 09/27/21 09/27/21 cholecalciferol (vitamin D3) 50 50 mcg FEEDING TUBE DAILY 09/27/21 09/27/21 mcg (2,000 unit) tablet (Vitamin D3) multivitamin 1 tab FEEDING TUBE DAILY 09/27/21 09/27/21 sertraline 25 mg tablet 1 tab FEEDING TUBE DAILY 09/27/21 09/27/21 tamsulosin 0.4 mg capsule 1 cap PO DAILY 09/27/21 09/27/21 Previous Rx's Medication Instructions Recorded omeprazole 20 mg capsule,delayed 20 mg PO BID 30 Days #60 cap 10/01/21 release Allergies Allergy/AdvReac Type Severity Reaction Status Date / Time meperidine [From DEMEROL] Allergy Intermediate HEADACHES Unverified 09/26/21 21:55 Review of Systems Review of Systems: Constitutional : No Weight loss, denies fever or chills, complaining of fatigue and generalized malaise ENT/Mouth : No Hearing loss, No Ear Pain, No Nasal Congestion, No Sinus Pain, No Hoarseness, No sore throat, No Rhinorrhea, No Swallowing Difficulty Eyes: No Eye Pain, No Swelling, No Redness, No Foreign Body, No Discharge, No Vision Changes Cardiovascular : No Chest Pain, No SOB, No Dyspnea on Exertion, No Orthopnea, No Edema, No Palpitations Respiratory : No Cough, No Sputum, No Wheezing, No Smoke Exposure, No Dyspnea Gastrointestinal : Complaining of nausea and vomiting, decreased p.o. intake due to weakness. No Diarrhea, No Constipation, No abdominal Pain, No Hematochezia, No Melena Genitourinary : no irregular bleeding, No Dysuria, No Urinary Frequency, No Hematuria, No Urinary Incontinence, No Urgency, No Flank Pain, No Urinary Flow Changes, No Hesitancy Musculoskeletal : No joint pain, No Myalgias, No Joint Swelling Skin : No Skin Lesions, No rash Neuro : No Weakness, No Numbness, No Paresthesias, No Loss of Consciousness, lightheadedness, headache Psych : No Anxiety/Panic, No Depression, No SI/HI/AH/VH, No Social Issues, Heme/Lymph: No Bruising, No Bleeding,No Lymphadenopathy Endocrine : No Polyuria, No Polydipsia, No Temperature Intolerance [facility] Past Medical History Medical History (Updated 11/16/21 @ 19:30 by Mira Ordonez MD) Erosive esophagitis Gastritis GIB (gastrointestinal bleeding) Head and neck cancer Pulmonary embolus Pulmonary fibrosis Surgical History (Updated 11/16/21 @ 12:03 by Mira Ordonez MD) Lung transplant status, bilateral Social History Social History Household Members: Spouse Housing: Apartment Do you presently have visiting nurse or other home services: Yes Patient Tobacco Use Status: Never used Tobacco Advance Directives: No Advance Directives Information Provided: No service: No Physical Exam ED Vital Signs: Vital Signs - 24 hr 11/16/21 11:51 11/16/21 15:12 11/16/21 15:14 Temperature 97.9 F Pulse Rate 82 81 82 Respiratory Rate 18 Blood Pressure 112/49 L 123/52 L 118/48 L Pulse Oximetry 97 11/16/21 15:16 11/16/21 18:04 Temperature 98.1 F Pulse Rate 90 76 Respiratory Rate 16 Blood Pressure 96/44 L 123/58 L Pulse Oximetry 100 BMI result Body Mass Index 21.0 Const Other: Appearance: Alert. Oriented X3. Ill-appearing Eyes: Pupils equal, round and reactive to light. ENT: Pharynx normal. Neck: Normal inspection. Neck supple. No lymph nodes noted. No crepitus CVS: Normal heart rate and rhythm. Pulses normal. Normal S1 and S2 Respiratory: No respiratory distress. Breath sounds normal. No Wheezing. No rales Abdomen: Soft and nontender G-tube in place, actively vomiting Skin: Skin warm and dry. Pale, Normal skin turgor. Extremities: No lower extremity edema. No Lacerations. No Rash Neuro: Oriented X 3. No motor deficit. No sensory deficit. Moving all extremities. No slurred speech. CN 2 through 12 grossly intact Psych: calm, cooperative, normal affect Course Course Course Narrative: Patient received 2 L of IV fluids, sodium did not improve. Patient's glucose dropped, patient needed D50. Patient is being admitted for failure to thrive. Patient did have positive orthostatic vitals on arrival. I discussed the patient with Dr. Braxton. It was noted that the patient takes prednisone daily. Patient has not been having good p.o. intake for the last few days. Patient is giving IV hydrocortisone stress dose to prevent adrenal crisis Medical Decision Making Lab Data Result diagrams: 11/16/21 12:48 11/16/21 18:04 Labs: Lab Results 11/16/21 11/16/21 11/16/21 Range/Units 12:47 12:48 12:48 WBC 5.3 (4.8-10.8) X10*3/uL RBC 3.13 L (4.60-5.80) X10*6/uL Hgb 10.6 L (14.0-18.0) g/dl Hct 30.6 L (42.0-52.0) % MCV 97.8 (80.0-98.0) fL MCH 33.9 H (27.0-33.0) pg MCHC 34.6 (31.0-36.0) g/dl RDW 15.9 (11.0-16.0) % Plt Count 124 L D (160-400) X10*3/uL MPV 9.7 (9.4-12.4) fL Immature Gran % (Auto) 0.4 (0.0-0.4) % Neut % (Auto) 77.1 H (45-73) % Lymph % (Auto) 7.2 L (20-40) % [place] % (Auto) 11.7 H (2-11) % Eos % (Auto) 3.4 (0-4) % Baso % (Auto) 0.2 (0-2) % Lymph # (Auto) 0.4 L (1.2-4.9) X10*3/uL [place] # (Auto) 0.6 (0.1-1.2) X10*3/uL Eos # (Auto) 0.2 (0.0-0.4) X10*3/uL Baso # (Auto) 0.0 (0.0-0.2) X10*3/uL Abs Immat Gran (auto) 0.02 (0.00-0.03) X10*3/uL Absolute Neuts (auto) 4.1 (2.0-8.3) x10*3/uL Absolute Nucleated RBC 0.000 (0.0-0.012) X10*3/uL Nucleated RBC % (auto) 0.0 (0.0-0.2) /100WBC Sodium 130 L (135-145) mmol/L Potassium 4.4 (3.3-5.1) mmol/L Chloride 100 (96-108) mmol/L Carbon Dioxide 20 L (22-29) mmol/L Anion Gap 14 (12-20) BUN 39 H D (9-16) mg/dL Creatinine 1.39 (0.5-1.4) mg/dL Estim Creat Clear Calc 46.9 Estimated GFR 52 Random Glucose 63 (60-115) mg/dL Lactic Acid 1.1 (0.5-2.0) mmol/L Calcium 8.2 L (8.4-10.2) mg/dL Magnesium 1.7 (1.6-2.6) mg/dL Total Bilirubin 0.8 (0.0-1.0) mg/dL Direct Bilirubin 0.5 (0.0-0.5) mg/dL AST 18 D (5-37) U/L ALT 16 (0-40) U/L Alkaline Phosphatase 143 H D (39-117) U/L Troponin I High Sens (<3.5-35.0) ng/L Total Protein 5.9 L (6.5-8.0) g/dL Albumin 3.0 L (3.5-5.0) g/dL Lipase 7 L (8-78) U/L Urine Color Urine Appearance Urine pH (5.0-8.0) Ur Specific Craig (1.005-1.025) Urine Protein (NEG-TRACE) MG/DL Urine Glucose (UA) (NEG) MG/DL Urine Ketones (NEG) MG/DL Urine Blood (NEG) Urine Nitrite (NEG) Ur Leukocyte Esterase (NEG) Urine RBC (0) /HPF Urine WBC (0-4) /HPF Ur Squamous Epith Cells /LPF Urine Bacteria /LPF COVID-19 (ABDON) (Negative) COVID-19 Clin Com Influenza Type A (BRISA) (Negative) Influenza Type B (BRISA) (Negative) Influenza A & B Note 11/16/21 11/16/21 11/16/21 Range/Units 12:48 13:17 13:17 WBC (4.8-10.8) X10*3/uL RBC (4.60-5.80) X10*6/uL Hgb (14.0-18.0) g/dl Hct (42.0-52.0) % MCV (80.0-98.0) fL MCH (27.0-33.0) pg MCHC (31.0-36.0) g/dl RDW (11.0-16.0) % Plt Count (160-400) X10*3/uL MPV (9.4-12.4) fL Immature Gran % (Auto) (0.0-0.4) % Neut % (Auto) (45-73) % Lymph % (Auto) (20-40) % [place] % (Auto) (2-11) % Eos % (Auto) (0-4) % Baso % (Auto) (0-2) % Lymph # (Auto) (1.2-4.9) X10*3/uL [place] # (Auto) (0.1-1.2) X10*3/uL Eos # (Auto) (0.0-0.4) X10*3/uL Baso # (Auto) (0.0-0.2) X10*3/uL Abs Immat Gran (auto) (0.00-0.03) X10*3/uL Absolute Neuts (auto) (2.0-8.3) x10*3/uL Absolute Nucleated RBC (0.0-0.012) X10*3/uL Nucleated RBC % (auto) (0.0-0.2) /100WBC Sodium (135-145) mmol/L Potassium (3.3-5.1) mmol/L Chloride (96-108) mmol/L Carbon Dioxide (22-29) mmol/L Anion Gap (12-20) BUN (9-16) mg/dL Creatinine (0.5-1.4) mg/dL Estim Creat Clear Calc Estimated GFR Random Glucose (60-115) mg/dL Lactic Acid (0.5-2.0) mmol/L Calcium (8.4-10.2) mg/dL Magnesium (1.6-2.6) mg/dL Total Bilirubin (0.0-1.0) mg/dL Direct Bilirubin (0.0-0.5) mg/dL AST (5-37) U/L ALT (0-40) U/L Alkaline Phosphatase (39-117) U/L Troponin I High Sens 8.7 (<3.5-35.0) ng/L Total Protein (6.5-8.0) g/dL Albumin (3.5-5.0) g/dL Lipase (8-78) U/L Urine Color Urine Appearance Urine pH (5.0-8.0) Ur Specific Craig (1.005-1.025) Urine Protein (NEG-TRACE) MG/DL Urine Glucose (UA) (NEG) MG/DL Urine Ketones (NEG) MG/DL Urine Blood (NEG) Urine Nitrite (NEG) Ur Leukocyte Esterase (NEG) Urine RBC (0) /HPF Urine WBC (0-4) /HPF Ur Squamous Epith Cells /LPF Urine Bacteria /LPF COVID-19 (ABDON) Negative (Negative) COVID-19 Clin Com See Note Influenza Type A (BRISA) Negative (Negative) Influenza Type B (BRISA) Negative (Negative) Influenza A & B Note See Note 11/16/21 11/16/21 Range/Units 15:21 18:04 WBC (4.8-10.8) X10*3/uL RBC (4.60-5.80) X10*6/uL Hgb (14.0-18.0) g/dl Hct (42.0-52.0) % MCV (80.0-98.0) fL MCH (27.0-33.0) pg MCHC (31.0-36.0) g/dl RDW (11.0-16.0) % Plt Count (160-400) X10*3/uL MPV (9.4-12.4) fL Immature Gran % (Auto) (0.0-0.4) % Neut % (Auto) (45-73) % Lymph % (Auto) (20-40) % [place] % (Auto) (2-11) % Eos % (Auto) (0-4) % Baso % (Auto) (0-2) % Lymph # (Auto) (1.2-4.9) X10*3/uL [place] # (Auto) (0.1-1.2) X10*3/uL Eos # (Auto) (0.0-0.4) X10*3/uL Baso # (Auto) (0.0-0.2) X10*3/uL Abs Immat Gran (auto) (0.00-0.03) X10*3/uL Absolute Neuts (auto) (2.0-8.3) x10*3/uL Absolute Nucleated RBC (0.0-0.012) X10*3/uL Nucleated RBC % (auto) (0.0-0.2) /100WBC Sodium 130 L (135-145) mmol/L Potassium 4.7 (3.3-5.1) mmol/L Chloride 103 (96-108) mmol/L Carbon Dioxide 18 L (22-29) mmol/L Anion Gap 14 (12-20) BUN 29 H (9-16) mg/dL Creatinine 1.26 (0.5-1.4) mg/dL Estim Creat Clear Calc 51.7 Estimated GFR 58 Random Glucose 51 L* (60-115) mg/dL Lactic Acid (0.5-2.0) mmol/L Calcium 7.7 L D (8.4-10.2) mg/dL Magnesium (1.6-2.6) mg/dL Total Bilirubin (0.0-1.0) mg/dL Direct Bilirubin (0.0-0.5) mg/dL AST (5-37) U/L ALT (0-40) U/L Alkaline Phosphatase (39-117) U/L Troponin I High Sens (<3.5-35.0) ng/L Total Protein (6.5-8.0) g/dL Albumin (3.5-5.0) g/dL Lipase (8-78) U/L Urine Color YELLOW Urine Appearance CLOUDY Urine pH 5.5 (5.0-8.0) Ur Specific [place] 1.015 (1.005-1.025) Urine Protein TRACE (NEG-TRACE) MG/DL Urine Glucose (UA) NEG (NEG) MG/DL Urine Ketones 15 (NEG) MG/DL Urine Blood 3+ H (NEG) Urine Nitrite NEG (NEG) Ur Leukocyte Esterase TRACE H (NEG) Urine RBC TNTC H (0) /HPF Urine WBC 0-2 (0-4) /HPF Ur Squamous Epith Cells NONE /LPF Urine Bacteria NONE /LPF COVID-19 (ABDON) (Negative) COVID-19 Clin Com Influenza Type A (BRISA) (Negative) Influenza Type B (BRISA) (Negative) Influenza A & B Note ECG Data Attestation: I personally reviewed and interpreted this ECG as follows: (Sinus rhythm, heart rate 75, T-wave inversions in V1 V2 V3, no ST segment depressions, QTC 484, no EKG changes since September 2021) Discharge Plan Discharge Clinical Impression: Adult failure to thrive, Orthostatic hypotension, Vomiting, Acute hyponatremia Patient Disposition: Admitted As Inpatient
--- NOTE | 2021-11-16 11:59 | ECG_ITS ---
Test Reason : dizziness Blood Pressure : / mmHG Vent. Rate : 075 BPM Atrial Rate : 075 BPM P-R Int : 154 ms QRS Dur : 080 ms QT Int : 434 ms P-R-T Axes : 078 062 080 degrees QTc Int : 484 ms Normal sinus rhythm ST & T wave abnormality, consider anterior ischemia Prolonged QT Abnormal ECG When compared with ECG of 26-SEP-2021 21:27, No significant change was found Referred By: Mira Ordonez Electronically Signed By:Chris Le
[2021-11-16] MEDS: 0.9 % Sodium Chloride 1,000 ML 999 ML IVCONT ×2 (12:25→16:44)
[2021-11-16 12:52] LABS: MANUAL DIFF FLAG NO
[2021-11-16 13:01] LABS: Basophils Percent Auto 0.2 % (0-2); Eosinophils Absolute Auto 0.2 X10*3/uL (0.0-0.4); Eosinophils Percent Auto 3.4 % (0-4); Hematocrit 30.6 % (42.0-52.0); Hemoglobin 10.6 g/dl (14.0-18.0); Imm Gran Abs Auto 0.02 X10*3/uL (0.00-0.03); Imm Gran Pct Auto 0.4 % (0.0-0.4); Lymphocytes Absolute Auto 0.4 X10*3/uL (1.2-4.9); Lymphocytes Percent Auto 7.2 % (20-40); Mean Corpuscular HGB Conc 34.6 g/dl (31.0-36.0); Mean Corpuscular Hemoglobin 33.9 pg (27.0-33.0); Mean Corpuscular Volume 97.8 fL (80.0-98.0); Mean Platelet Volume 9.7 fL (9.4-12.4); Monocytes Absolute Auto 0.6 X10*3/uL (0.1-1.2); Monocytes Percent Auto 11.7 % (2-11); Neutrophils Absolute Auto 4.1 x10*3/uL (2.0-8.3); Neutrophils Percent Auto 77.1 % (45-73); Platelet Count 124 X10*3/uL (160-400); Red Blood Count 3.13 X10*6/uL (4.60-5.80); Red Cell Distribution Width 15.9 % (11.0-16.0); White Blood Count 5.3 X10*3/uL (4.8-10.8)
[2021-11-16] MEDS: Prochlorperazine Edisylate 10 MG/2 ML VIAL IVPUSH (13:08)
[2021-11-16 13:17] LABS: Lactic Acid 1.1 mmol/L (0.5-2.0)
[2021-11-16 13:19] LABS: Alanine Aminotransferase 16 U/L (0-40); Alkaline Phosphatase 143 U/L (39-117); Anion Gap 14 (12-20); Aspartate Amino Transferase 18 U/L (5-37); Bilirubin Direct 0.5 mg/dL (0.0-0.5); Bilirubin Total 0.8 mg/dL (0.0-1.0); Blood Urea Nitrogen 39 mg/dL (9-16); Calcium 8.2 mg/dL (8.4-10.2); Carbon Dioxide 20 mmol/L (22-29); Chloride 100 mmol/L (96-108); Creatinine Clr Calc Pharmacy 46.9; Estimated Glomerular Filt Rate 52; Glucose Random 63 mg/dL (60-115); Lipase 7 U/L (8-78); Magnesium 1.7 mg/dL (1.6-2.6); Potassium 4.4 mmol/L (3.3-5.1); Sodium 130 mmol/L (135-145); Total Protein 5.9 g/dL (6.5-8.0)
[2021-11-16 13:27] LABS: Troponin-I High Sensitivity 8.7 ng/L (<3.5-35.0)
[2021-11-16 13:48] LABS: COVID-19 Test Negative (Negative); IDNOW Serial# 16C4AD1C; Influenza A Negative (Negative); Influenza B2 Negative (Negative)
[2021-11-16 15:12] VITALS: BP 123/52; PULSE 81
[2021-11-16 15:14] VITALS: BP 118/48; PULSE 82
[2021-11-16 15:16] VITALS: BP 96/44; PULSE 90
[2021-11-16 15:28] LABS: Appearance Urine CLOUDY; Color Urine YELLOW; Glucose Urine UA NEG (NEG); Leukocyte Esterase Urine TRACE (NEG); Nitrite Urine NEG (NEG); PH 5.5 (5.0-8.0); Specific Gravity - Urine 1.015 (1.005-1.025); UACC Culture Trigger YES; Urine Blood 3+ (NEG); Urine Ketones 15 MG/DL (NEG); Urine Protein TRACE MG/DL (NEG-TRACE)
[2021-11-16 15:47] LABS: WBC Urine 0-2 /HPF (0-4)
[2021-11-16 15:48] LABS: RBC Urine TNTC /HPF (0)
[2021-11-16] MEDS: cefTRIAXone sodium 1 GM in 0.9 % Sodium Chloride 50 ML IV (17:34)
[2021-11-16 18:04] VITALS: BP 123/58; PULSE 76; RESP 16; TEMP 36.7; O2SAT 100
[2021-11-16 18:35] LABS: Anion Gap 14 (12-20); Blood Urea Nitrogen 29 mg/dL (9-16); Calcium 7.7 mg/dL (8.4-10.2); Carbon Dioxide 18 mmol/L (22-29); Chloride 103 mmol/L (96-108); Creatinine Clr Calc Pharmacy 51.7; Estimated Glomerular Filt Rate 58; Glucose Random 51 mg/dL (60-115); Potassium 4.7 mmol/L (3.3-5.1); Sodium 130 mmol/L (135-145)
[2021-11-16] MEDS: Dextrose 50 % 25 GM/50 ML SYRINGE IVPUSH (19:07)
[2021-11-16 19:52] LABS: Glucose, Whole Blood 120 mg/dL (60-115)
--- NOTE | 2021-11-16 19:57 | PM.IMHP ---
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 Patient also reports that he had multiple falls, denies any head strike or loss of consciousness. Patient reports he has been having nausea and vomiting; and has not been eating well; mentiones that he is on both tube feeds and recently started PO feeds. Mentions that he has not taken his home medications for the past 2 days. Denies any fever chills cough Denies any nausea vomiting, abdominal discomfort, diarrhea. Review of all other systems is negative except mentioned above ER course: Per ER team patient exam was nonfocal; CT head and CT C-spine showed no acute process; urinalysis was abnormal consider the UTI; also noted to have sodium of 130; given IV fluids. Follow-up lab showed hypoglycemia to 51. Patient orthostatic vitals were positive. Patient was given stress dose steroids hydrocortisone. Blood pressure remained fairly stable with systolic in 120s; admitted to the hospital for further management PMFSH Medical History (Updated 11/16/21 @ 19:57 by Cody Braxton MD) Erosive esophagitis Gastritis GIB (gastrointestinal bleeding) Head and neck cancer Pulmonary embolus Pulmonary fibrosis Pertinent family history: Patient unable to provide information Surgical History (Updated 11/16/21 @ 12:03 by Mira Ordonez MD) Lung transplant status, bilateral Social History Household Members: Spouse Housing: Apartment Do you presently have visiting nurse or other home services: Yes Patient Tobacco Use Status: Never used Tobacco Advance Directives: No Advance Directives Information Provided: No service: Yes Current occupational status: unemployed Meds Allergies Allergy/AdvReac Type Severity Reaction Status Date / Time meperidine [From DEMEROL] Allergy Intermediate HEADACHES Unverified 09/26/21 21:55 Active Medications: Current Medications Dextrose (Dextrose 50 % 25 Gm/50 Ml Syringe) 25 gm IVPUSH Q15M PRN; Protocol PRN Reason: per Hypoglycemia Standing Ord. Glucose (Glucose Gel 15 Gm Gel..Gram.) 15 gm PO Q15M PRN; Protocol PRN Reason: per Hypoglycemia Standing Ord. Pharmacy Consult (Consult Rx Perform Med Rec) 1 each MISCELLANE ONCE PRN PRN Reason: Consult order Pharmacy Consult (Consult Rx Perform Med Rec) 1 each MISCELLANE ONCE PRN PRN Reason: Consult order Home Medications Medication Instructions Recorded Confirmed Last Taken Type apixaban 5 mg tablet (Eliquis) 1 tab FEEDING TUBE BID 09/26/21 11/16/21 11/12/21 History levothyroxine 112 mcg tablet 1 tab FEEDING TUBE DAILY 09/26/21 11/16/21 11/12/21 History lorazepam 0.5 mg tablet 1 tab FEEDING TUBE TID PRN 09/26/21 11/16/21 11/12/21 History prednisone 5 mg tablet 1 tab FEEDING TUBE BEDTIME 09/26/21 11/16/21 11/12/21 History tacrolimus 1 mg capsule, 5 cap FEEDING TUBE BID 09/26/21 11/16/21 11/12/21 History immediate-release azithromycin 250 mg tablet 1 tab FEEDING TUBE MOWEFR 09/27/21 11/16/21 11/12/21 History multivitamin 1 tab FEEDING TUBE DAILY 09/27/21 11/16/21 11/12/21 History sertraline 25 mg tablet 1 tab FEEDING TUBE DAILY 09/27/21 11/16/21 11/12/21 History atovaquone 750 mg/5 mL oral 750 mg PO DAILY 11/16/21 11/16/21 11/12/21 History suspension loperamide 2 mg tablet 2 mg FEEDING TUBE BID 11/16/21 11/16/21 11/12/21 History omeprazole 20 mg capsule,delayed 20 mg FEEDING TUBE BID 11/16/21 11/16/21 11/12/21 History release pseudoephedrine HCl 30 mg tablet 30 mg TID 11/16/21 11/16/21 Unknown History sodium chloride 0.65 % nasal drops 2 drp INTRANASAL QID 11/16/21 11/16/21 11/12/21 History Physical Exam Vital Signs and Narrative: Vital Signs: Last Vital Signs Temp 98.1 F 11/16/21 18:04 Pulse 76 11/16/21 18:04 Resp 16 11/16/21 18:04 BP 123/58 L 11/16/21 18:04 Pulse Ox 100 11/16/21 18:04 BMI result Body Mass Index 21.0 Gen: Appears be in no acute distress HEENT: NCAT, Moist mucosa. Pulmonary: Coarse breath sounds CVS: Normal S1-S2 Abdomen: BS+, Soft, Nontender; G-tube site appears clean Extremities: Warm well perfused Neuro: Alert and awake. Results Labs CBC and Chem 7: 11/16/21 12:48 11/16/21 18:04 Labs: Laboratory Results - last 24 hr 11/16/21 11/16/21 11/16/21 12:47 12:48 12:48 MCV 97.8 MCH 33.9 H MCHC 34.6 RDW 15.9 Plt Count 124 L D MPV 9.7 Immature Gran % (Auto) 0.4 Neut % (Auto) 77.1 H Lymph % (Auto) 7.2 L [place] % (Auto) 11.7 H Eos % (Auto) 3.4 Baso % (Auto) 0.2 Lymph # (Auto) 0.4 L [place] # (Auto) 0.6 Eos # (Auto) 0.2 Baso # (Auto) 0.0 Abs Immat Gran (auto) 0.02 Absolute Neuts (auto) 4.1 Absolute Nucleated RBC 0.000 Nucleated RBC % (auto) 0.0 Anion Gap 14 Estim Creat Clear Calc 46.9 Estimated GFR 52 POC Glucose Random Glucose 63 Lactic Acid 1.1 Calcium 8.2 L Magnesium 1.7 Total Bilirubin 0.8 Direct Bilirubin 0.5 AST 18 D ALT 16 Alkaline Phosphatase 143 H D Troponin I High Sens Total Protein 5.9 L Albumin 3.0 L Lipase 7 L Urine Color Urine Appearance Urine pH Ur Specific [place] Urine Protein Urine Glucose (UA) Urine Ketones Urine Blood Urine Nitrite Ur Leukocyte Esterase Urine RBC Urine WBC Ur Squamous Epith Cells Urine Bacteria COVID-19 (ABDON) COVID-19 Clin Com Influenza Type A (BRISA) Influenza Type B (BRISA) Influenza A & B Note 11/16/21 11/16/21 11/16/21 12:48 13:17 13:17 MCV MCH MCHC RDW Plt Count MPV Immature Gran % (Auto) Neut % (Auto) Lymph % (Auto) [place] % (Auto) Eos % (Auto) Baso % (Auto) Lymph # (Auto) [place] # (Auto) Eos # (Auto) Baso # (Auto) Abs Immat Gran (auto) Absolute Neuts (auto) Absolute Nucleated RBC Nucleated RBC % (auto) Anion Gap Estim Creat Clear Calc Estimated GFR POC Glucose Random Glucose Lactic Acid Calcium Magnesium Total Bilirubin Direct Bilirubin AST ALT Alkaline Phosphatase Troponin I High Sens 8.7 Total Protein Albumin Lipase Urine Color Urine Appearance Urine pH Ur Specific [place] Urine Protein Urine Glucose (UA) Urine Ketones Urine Blood Urine Nitrite Ur Leukocyte Esterase Urine RBC Urine WBC Ur Squamous Epith Cells Urine Bacteria COVID-19 (ABDON) Negative COVID-19 Clin Com See Note Influenza Type A (BRISA) Negative Influenza Type B (BRISA) Negative Influenza A & B Note See Note 11/16/21 11/16/21 11/16/21 15:21 18:04 19:47 MCV MCH MCHC RDW Plt Count MPV Immature Gran % (Auto) Neut % (Auto) Lymph % (Auto) [place] % (Auto) Eos % (Auto) Baso % (Auto) Lymph # (Auto) [place] # (Auto) Eos # (Auto) Baso # (Auto) Abs Immat Gran (auto) Absolute Neuts (auto) Absolute Nucleated RBC Nucleated RBC % (auto) Anion Gap 14 Estim Creat Clear Calc 51.7 Estimated GFR 58 POC Glucose 120 H Random Glucose 51 L* Lactic Acid Calcium 7.7 L D Magnesium Total Bilirubin Direct Bilirubin AST ALT Alkaline Phosphatase Troponin I High Sens Total Protein Albumin Lipase Urine Color YELLOW Urine Appearance CLOUDY Urine pH 5.5 Ur Specific [place] 1.015 Urine Protein TRACE Urine Glucose (UA) NEG Urine Ketones 15 Urine Blood 3+ H Urine Nitrite NEG Ur Leukocyte Esterase TRACE H Urine RBC TNTC H Urine WBC 0-2 Ur Squamous Epith Cells NONE Urine Bacteria NONE COVID-19 (ABDON) COVID-19 Clin Com Influenza Type A (BRISA) Influenza Type B (BRISA) Influenza A & B Note Imaging Radiologist's Impressions: Impressions Head CT 11/16/21 12:28 IMPRESSION: No acute intracranial findings. Cervical Spine CT 11/16/21 12:29 IMPRESSION: Degenerative changes. No fracture or dislocation seen. Fleischner guidelines were followed. 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 Multiple falls/Generalized weakness: Likely in the setting of UTI. Supportive care. CT head and CT cervical spine was done which showed no acute findings. PT/OT eventually Adult failure to thrive: Patient has poor oral intake. Patient is on tube feeds at home. Nutrition consult UTI: Continue ceftriaxone. Follow up cultures. Orthostatic hypotension: Likely in the setting of poor oral intake. Patient also chronic prednisone (missed two days). Given stress dose steroids. Continue home prednisone. Continue maintenance fluids. Hypoglycemia: Patient had an episode of hypoglycemia to 51. Likely in setting of poor oral intake. Will give the patient on D5 NS IV fluids. Monitor fingerstick glucose. Emergency hypoglycemia protocol in place. Mild Hyponatremia: Appears to be low solute state. Gentle IV fluids. Repeat BMP in 6-8 hours. History of pulmonary embolism: Continue home Eliquis History of pulmonary fibrosis: Patient currently saturating well on room air. [place]il[facility] p.r.n. History of lung transplant: Patient on prednisone, tacrolimus (missed two days). Will resume home medications. Will obtain tacrolimus levels. History of tongue/throat cancer: Patient received chemo/radiotherapy. Last received in August. Oncology follow-up. Diet: mentiones that he recently started taking PO feeds; Speech and swallow eval . Medications via G-tube. Spoke to the pharmacy. DVT prophylaxis: Patient on Eliquis Code status: DNR/DNI. Patient has most form Quality Stroke Does the patient have a stroke diagnosis?: No VTE Prior VTE?: No VTE Risk Level:: Medical - moderate - high VTE Device Contraindication: N/A - Device Ordered VTE Drug Contraindication: Treatment Not Indicated
--- NOTE | 2021-11-16 20:34 | PHA.MEDREC ---
Pharmacy Consult ? Medication Reconciliation Pharmacy has completed the medication reconciliation.
--- NOTE | 2021-11-16 21:23 | MHC.CM.PN ---
IMM 11/16. Met with pt. A&Ox3. HCP not on file. Copy requested. HCP/ Neelam Curtis ([phone]). MOLST on file. DNR/DNI. Vax/boosted. Has [facility] and home PT currently. Has g-tube with tube feedings. Pt has hx of lung transplant and tongue/throat ca. Completed radiation 08/28. . [place] [facility] [place]. 30% [facility]. Lives with . No DME.D/C plan:Home with [facility]. Referral to follow placed in [facility]. to provide transportation. CM to Follow for d/c needs.
[2021-11-16 21:57] LABS: Glucose, Whole Blood 85 mg/dL (60-115)
[2021-11-16] MEDS: Dextrose 5 % and 0.9 % NaCl 1,000 ML 80 ML IVCONT (22:42)
[2021-11-16] MEDS: Hydrocortisone Sod Succ/PF 100 MG VIAL IVPUSH (23:30)
[2021-11-16 23:39] LABS: Glucose, Whole Blood 85 mg/dL (60-115)
[2021-11-17 00:16] VITALS: BP 125/66; PULSE 80; RESP 16; TEMP 36.7; O2SAT 98
[2021-11-17 03:46] VITALS: BP 115/59; PULSE 66; RESP 16; TEMP 36.7; O2SAT 96
[2021-11-17 07:27] LABS: Hematocrit 31.7 % (42.0-52.0); Hemoglobin 11.1 g/dl (14.0-18.0); Imm Gran Abs Auto 0.01 X10*3/uL (0.00-0.03); Imm Gran Pct Auto 0.3 % (0.0-0.4); Lymphocytes Absolute Auto 0.1 X10*3/uL (1.2-4.9); Lymphocytes Percent Auto 3.4 % (20-40); MANUAL DIFF FLAG SCAN; Mean Corpuscular Hemoglobin 34.3 pg (27.0-33.0); Mean Corpuscular Volume 97.8 fL (80.0-98.0); Mean Platelet Volume 9.7 fL (9.4-12.4); Monocytes Absolute Auto 0.1 X10*3/uL (0.1-1.2); Monocytes Percent Auto 2.7 % (2-11); Neutrophils Absolute Auto 2.8 x10*3/uL (2.0-8.3); Neutrophils Percent Auto 93.6 % (45-73); Platelet Count 124 X10*3/uL (160-400); Red Blood Count 3.24 X10*6/uL (4.60-5.80); Red Cell Distribution Width 15.9 % (11.0-16.0); SCAN SMEAR FLAG 1; White Blood Count 2.9 X10*3/uL (4.8-10.8)
[2021-11-17 07:52] LABS: SLIDE REVIEW VERIFIED
[2021-11-17 07:54] LABS: Anion Gap 13 (12-20); Blood Urea Nitrogen 27 mg/dL (9-16); Calcium 7.8 mg/dL (8.4-10.2); Carbon Dioxide 18 mmol/L (22-29); Chloride 106 mmol/L (96-108); Creatinine Clr Calc Pharmacy 47.6; Estimated Glomerular Filt Rate 52; Glucose Random 180 mg/dL (60-115); Potassium 5.8 mmol/L (3.3-5.1); Sodium 131 mmol/L (135-145)
--- NOTE | 2021-11-17 07:58 | HO.PM.IMPN ---
Subjective Subjective Date of Service: 11/17/21 Interval History: fall,UTI, hyponatremia Review of Systems mental status seems to be improving near baseline, hyponatremia and hypoglycemia slowly improving, denies any chest pain or shortness of breath or abdominal pain or fever chills. Physical Exam Vital Signs: Vital Signs: Last Vital Signs Temp 98.1 F 11/17/21 03:46 Pulse 66 11/17/21 03:46 Resp 16 11/17/21 03:46 BP 115/59 L 11/17/21 03:46 Pulse Ox 96 11/17/21 03:46 BMI result Body Mass Index 21.0 Appearance: Alert.? Oriented X3.? Chronically sick appearing, seems very weak? cvs: rrr, [id number] , no murmur res: clear to auscultation ,no rhonchii or wheezing abd: no rebound or guarding ,nt, bs present, has g tube -seems clean , no discharge. ext pulses present , no cyanosis . neuro: axo3 , nonfocal. Objective Data Active Medications Albuterol/Ipratropium (Albuterol/Iprat 2.5/0.5mg 3 Ml Ampul.Neb) 3 ml INHALE RQ4H PRN PRN Reason: Shortness of Breath/Wheezing Apixaban (Apixaban 5 Mg Tablet) 5 mg G-TUBE BID TONY Atovaquone (Atovaquone 750 Mg/5 Ml Oral.Susp) 750 mg PO DAILY TONY Azithromycin (Azithromycin 250 Mg Tablet) 250 mg G-TUBE MOWEFR [facility] Dextrose (Dextrose 50 % 25 Gm/50 Ml Syringe) 25 gm IVPUSH Q15M PRN; Protocol PRN Reason: per Hypoglycemia Standing Ord. Glucose (Glucose Gel 15 Gm Gel..Gram.) 15 gm PO Q15M PRN; Protocol PRN Reason: per Hypoglycemia Standing Ord. Ceftriaxone Sodium 1 gm/ (Sodium Chloride) 50 mls @ 100 mls/hr IV Q24H [facility] Sodium Chloride (Ns) 1,000 mls @ 50 mls/hr IVCONT .Q20H [facility] Last Admin: 11/16/21 23:36 Dose: Not Given Documented by: ELMIRA Non-Admin Reason: See Note Dextrose/Sodium Chloride (D5ns) 1,000 mls @ 80 mls/hr IVCONT .[id number] [facility] Last Admin: 11/16/21 22:42 Dose: 80 mls/hr Documented by: ELMIRA Levothyroxine Sodium (Levothyroxine Sodium 112 Mcg Tablet) 112 mcg G-TUBE DAILY@0630 [facility] Loperamide HCl (Loperamide Hcl 2 Mg Capsule) 2 mg PO BID [facility] Lorazepam (Lorazepam 0.5 Mg Tablet) 0.5 mg G-TUBE TID PRN PRN Reason: Anxiety Pharmacy Consult (Consult Rx Perform Med Rec) 1 each MISCELLANE ONCE PRN PRN Reason: Consult order Prednisone (Prednisone 5 Mg Tablet) 5 mg G-TUBE BEDTIME TONY Pseudoephedrine HCl (Pseudoephedrine Hcl 30 Mg Tablet) 30 mg G-TUBE TID TONY Sertraline HCl (Sertraline Hcl 25 Mg Tablet) 25 mg G-TUBE DAILY [facility] Sodium Chloride (0.9 % Sodium Chloride Flush 3 Ml Syringe) 3 ml IVFLUSH QSHIFT [facility] Last Admin: 11/17/21 01:07 Dose: Not Given Documented by: ELMIRA Non-Admin Reason: Patient Asleep Sodium Chloride (Sodium Chloride 0.65 % Nasal 44 Ml Sprbtl) 2 spray NOSTRIL-B QID [facility] Tacrolimus (Tacrolimus 0.5 Mg Capsule) 5 mg G-TUBE BID [facility] Labs CBC & Chem 7: 11/17/21 07:07 11/17/21 07:07 Labs: Laboratory Results - last 24 hr 11/16/21 11/16/21 11/16/21 12:47 12:48 12:48 MCV 97.8 MCH 33.9 H MCHC 34.6 RDW 15.9 Plt Count 124 L D MPV 9.7 Immature Gran % (Auto) 0.4 Neut % (Auto) 77.1 H Lymph % (Auto) 7.2 L [place] % (Auto) 11.7 H Eos % (Auto) 3.4 Baso % (Auto) 0.2 Lymph # (Auto) 0.4 L [place] # (Auto) 0.6 Eos # (Auto) 0.2 Baso # (Auto) 0.0 Abs Immat Gran (auto) 0.02 Absolute Neuts (auto) 4.1 Absolute Nucleated RBC 0.000 Nucleated RBC % (auto) 0.0 Smear Tech's Comments Anion Gap 14 Estim Creat Clear Calc 46.9 Estimated GFR 52 POC Glucose Random Glucose 63 Lactic Acid 1.1 Calcium 8.2 L Magnesium 1.7 Total Bilirubin 0.8 Direct Bilirubin 0.5 AST 18 D ALT 16 Alkaline Phosphatase 143 H D Troponin I High Sens Total Protein 5.9 L Albumin 3.0 L Lipase 7 L Urine Color Urine Appearance Urine pH Ur Specific [place] Urine Protein Urine Glucose (UA) Urine Ketones Urine Blood Urine Nitrite Ur Leukocyte Esterase Urine RBC Urine WBC Ur Squamous Epith Cells Urine Bacteria COVID-19 (ABDON) COVID-19 Clin Com Influenza Type A (BRISA) Influenza Type B (BRISA) Influenza A & B Note 11/16/21 11/16/21 11/16/21 12:48 13:17 13:17 MCV MCH MCHC RDW Plt Count MPV Immature Gran % (Auto) Neut % (Auto) Lymph % (Auto) [place] % (Auto) Eos % (Auto) Baso % (Auto) Lymph # (Auto) [place] # (Auto) Eos # (Auto) Baso # (Auto) Abs Immat Gran (auto) Absolute Neuts (auto) Absolute Nucleated RBC Nucleated RBC % (auto) Smear Tech's Comments Anion Gap Estim Creat Clear Calc Estimated GFR POC Glucose Random Glucose Lactic Acid Calcium Magnesium Total Bilirubin Direct Bilirubin AST ALT Alkaline Phosphatase Troponin I High Sens 8.7 Total Protein Albumin Lipase Urine Color Urine Appearance Urine pH Ur Specific [place] Urine Protein Urine Glucose (UA) Urine Ketones Urine Blood Urine Nitrite Ur Leukocyte Esterase Urine RBC Urine WBC Ur Squamous Epith Cells Urine Bacteria COVID-19 (ABDON) Negative COVID-19 Clin Com See Note Influenza Type A (BRISA) Negative Influenza Type B (BRISA) Negative Influenza A & B Note See Note 11/16/21 11/16/21 11/16/21 15:21 18:04 19:47 MCV MCH MCHC RDW Plt Count MPV Immature Gran % (Auto) Neut % (Auto) Lymph % (Auto) [place] % (Auto) Eos % (Auto) Baso % (Auto) Lymph # (Auto) [place] # (Auto) Eos # (Auto) Baso # (Auto) Abs Immat Gran (auto) Absolute Neuts (auto) Absolute Nucleated RBC Nucleated RBC % (auto) Smear Tech's Comments Anion Gap 14 Estim Creat Clear Calc 51.7 Estimated GFR 58 POC Glucose 120 H Random Glucose 51 L* Lactic Acid Calcium 7.7 L D Magnesium Total Bilirubin Direct Bilirubin AST ALT Alkaline Phosphatase Troponin I High Sens Total Protein Albumin Lipase Urine Color YELLOW Urine Appearance CLOUDY Urine pH 5.5 Ur Specific [place] 1.015 Urine Protein TRACE Urine Glucose (UA) NEG Urine Ketones 15 Urine Blood 3+ H Urine Nitrite NEG Ur Leukocyte Esterase TRACE H Urine RBC TNTC H Urine WBC 0-2 Ur Squamous Epith Cells NONE Urine Bacteria NONE COVID-19 (ABDON) COVID-19 Clin Com Influenza Type A (BRISA) Influenza Type B (BRISA) Influenza A & B Note 11/16/21 11/16/21 11/17/21 21:54 23:35 07:07 MCV 97.8 MCH 34.3 H MCHC 35.0 RDW 15.9 Plt Count 124 L MPV 9.7 Immature Gran % (Auto) 0.3 Neut % (Auto) 93.6 H Lymph % (Auto) 3.4 L [place] % (Auto) 2.7 Eos % (Auto) 0.0 Baso % (Auto) 0.0 Lymph # (Auto) 0.1 L [place] # (Auto) 0.1 Eos # (Auto) 0.0 Baso # (Auto) 0.0 Abs Immat Gran (auto) 0.01 Absolute Neuts (auto) 2.8 Absolute Nucleated RBC 0.000 Nucleated RBC % (auto) 0.0 Smear Tech's Comments VERIFIED Anion Gap Estim Creat Clear Calc Estimated GFR POC Glucose 85 85 Random Glucose Lactic Acid Calcium Magnesium Total Bilirubin Direct Bilirubin AST ALT Alkaline Phosphatase Troponin I High Sens Total Protein Albumin Lipase Urine Color Urine Appearance Urine pH Ur Specific [place] Urine Protein Urine Glucose (UA) Urine Ketones Urine Blood Urine Nitrite Ur Leukocyte Esterase Urine RBC Urine WBC Ur Squamous Epith Cells Urine Bacteria COVID-19 (ABDON) COVID-19 Clin Com Influenza Type A (BRISA) Influenza Type B (BRISA) Influenza A & B Note 11/17/21 07:07 MCV MCH MCHC RDW Plt Count MPV Immature Gran % (Auto) Neut % (Auto) Lymph % (Auto) [place] % (Auto) Eos % (Auto) Baso % (Auto) Lymph # (Auto) [place] # (Auto) Eos # (Auto) Baso # (Auto) Abs Immat Gran (auto) Absolute Neuts (auto) Absolute Nucleated RBC Nucleated RBC % (auto) Smear Tech's Comments Anion Gap 13 Estim Creat Clear Calc 47.6 Estimated GFR 52 POC Glucose Random Glucose 180 H D Lactic Acid Calcium 7.8 L Magnesium Total Bilirubin Direct Bilirubin AST ALT Alkaline Phosphatase Troponin I High Sens Total Protein Albumin Lipase Urine Color Urine Appearance Urine pH Ur Specific [place] Urine Protein Urine Glucose (UA) Urine Ketones Urine Blood Urine Nitrite Ur Leukocyte Esterase Urine RBC Urine WBC Ur Squamous Epith Cells Urine Bacteria COVID-19 (ABDON) COVID-19 Clin Com Influenza Type A (BRISA) Influenza Type B (BRISA) Influenza A & B Note Assessment and Plan (1) UTI (urinary tract infection): Status: Acute (2) Hyperkalemia: Status: Acute Plan 61-year-old male with a past medical history of 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 1.Multiple falls/Generalized weakness:? Likely in the setting of UTI.? Supportive care.? CT head and CT cervical spine was done which showed no acute findings.? cotnine iv antibiotics, follow blood culture and urine culture. 2.Adult failure to thrive /Moderate malnutrition:?? seen by speech and Swallow-started clear liquid diet PEG feeding promote. monitor closely 3.UTI: mental status seems to be improved to baseline. but still very weak. ?Continue ceftriaxone.? Follow up cultures.? 4.Orthostatic hypotension:? Likely in the setting of poor oral intake. continue gentle hydration ?Continue home prednisone.? Continue maintenance fluids. 5.Hypoglycemia:? Patient had an episode of hypoglycemia to 51.? Likely in setting of poor oral intake.? Will give the patient on D5 NS IV fluids.? fingersticks are improving between 80-120, if persistently stays in this range we will stop IV fluid. 6.Mild Hyponatremia:??Appears to be low solute state.? Gentle IV fluids.? hyperkalemia : add loklema will check bmp in evening 7.History of pulmonary embolism: Continue home Eliquis 8.History of pulmonary fibrosis:? Patient currently saturating well on room air.? Ramesh p.r.n. 9.History of lung transplant:? Patient on prednisone, tacrolimus (missed two days).? Will resume home medications.?pending obtain tacrolimus levels.? 10.History of tongue/throat cancer:? Patient received chemo/radiotherapy.? Last received in August.? Oncology follow-up. DVT prophylaxis:? Patient on Eliquis Code status: DNR/DNI.? Quality Stroke Does the patient have a stroke diagnosis?: No VTE Prior VTE?: No VTE Risk Level:: Medical - moderate - high VTE Device Contraindication: N/A - Device Ordered VTE Drug Contraindication: Treatment Not Indicated
[2021-11-17 08:35] LABS: Free T4 (Free Thyroxine) 0.92 ng/dL (0.71-1.85); Thyroid Stimulating Hormone 8.76 uIU/mL (0.32-4.0)
[2021-11-17 08:53] VITALS: BP 115/59; PULSE 66; O2SAT 96
[2021-11-17 10:35] VITALS: BMI 21.0
--- NOTE | 2021-11-17 10:44 | MHC.CLN ---
RE: CONSULT PT IS MODERATELY MALNOURISHED PT WITH MILDLY DEPLETED SUBCUTANEOUS FAT AND MUSCLE MASS WITH CHRONIC POOR PO INTAKE AND DEPENDENT ON TF FOR 100% NUTRITION SUPPORT PT IS CURRENTLY NPO PT REPORTED N/V X 4 DAYS PRINTING PRESSMAN AND INABILITY TO BOLUS TF R/T WEAKNESS RECOMMEND TF PROMOTE AT MAX GOAL RATE 75ML/HR TO PROVIDE 1800KCALS (29.5KCALS/KG), 112G PROTEIN (1.8G/KG), 1510ML WATER FROM FORMULA (24.8ML/KG) WILL HOLD FREE WATER FLUSHES AT THIS TIME R/T SERUM SODIUM LEVELS START FORMULA AT 20ML/HR AND INCREASE BY 10ML Q 4 HRS UNTIL MAX GOAL IS ACHIEVED MONITOR TOLERANCE, RESIDUALS AND LYTES SEE ALSO FULL CLINICAL NUTRITION ASSESSMENT
[2021-11-17] MEDS: Levothyroxine Sodium 112 MCG TABLET G-TUBE (11:00)
--- NOTE | 2021-11-17 11:50 | MHC.SL.SWA ---
Speech Pathologist Impression: Risk of Aspiration Due to: Medically Fragile Poor PO Intake Dysphasia Diet Status: Liquid Consistency and Strategies for Safe Swallow: Liquid Intake Recommendation: Thin Liquid Intake Strategies: Small Sips No Straws Solid Food Consistency: Dietary Recommendations: Clear liquid diet Additional Modifications to Solid Foods: p/o trials of solid consistencies w/ EXTRUDING MACHINE OPERATOR. Oral Medication Intake: NPO (VIA PEG) Please contact the pharmacy regarding appropriate crushable or liquid drug formulations that are available whenever modified delivery is recommended. Compensatory Strategies and Precautions to be Taken for Safe Swallow: Sitting Upright (90 deg) No Straw Liquids from Cup Alternate Liquids/Solids Rate of Ingestion Change Oral Check Supervision While Eating and Drinking for Safe Swallow: PO of solid consistencies with EXTRUDING MACHINE OPERATOR, Pt to take P.O. in small amt as tolerated. Foods to Avoid: Pt described baseline is small amounts P.O., primarily clear liquids (w/Jellos, Sherbert, Cream of Wheat). Bulk of nutrition @ baseline is by PEG. Swallowing Recommended Treatments: Compens. Strategy Educat. Recommendation for Speech: Inpatient Speech Therapy Comment: Pt has DX from recent [email or web address]: Mild Oralpharyngeal Dysphagia, s/p throat and tongue C/A w/ extensive radiation and surgical treatment (incl. partial tongue resection). Pt started PO in small amounts two weeks ago, working w/ private EXTRUDING MACHINE OPERATOR from [employer]. MBSS cleared Pt for moist puree/ground solids w/thin liquids, however Pt reports that small amount of PO he was consuming since study has been mostly clear liquids w/ some puree consistency solids (Cream of Wheat, Sherbet), and at baseline was only taking/tolerating very small amts. Pt reports he is still dependent on PEG for bulk of nutrition, was not weaning from feedings prior to this admit. MBSS indicated delayed oral transit, mild to moderate pharyngeal residue after swallow on puree textures, no aspiration. On BSE, similarly, delay in oral transit, mild oral residual on puree after swallow -cleared w/liquid wash, reduced laryngeal transit on swallow. Recommend Pt start on diet similar to what was reported as baseline: Clear liquid, small amounts of PO as tolerated, w/ bulk of nutrition by PEG. EXTRUDING MACHINE OPERATOR to follow M-F, w/ p.o. trials of solid consistencies, w/ advancement of diet as tolerated by Pt. Recommendation sent by secure text to MD, Marketing Support Manager, Dietary. Frequency/Duration: Date Range for Service Req: Timeline to reassess: Tailor Women'S Garment Alteration Clinican/Clinical Fellow: No Supervisory Statement: I have reviewed and agree with the student/clinical fellow's documentation: N/A Speech Language Pathologist: Violetta Vasquez M.A., CCC-EXTRUDING MACHINE OPERATOR
[2021-11-17] MEDS: Loperamide HCl 2 MG CAPSULE PO ×2 (12:06→20:09)
[2021-11-17] MEDS: Sertraline HCL 25 MG TABLET G-TUBE (12:07)
[2021-11-17] MEDS: Apixaban 5 MG TABLET G-TUBE ×2 (12:07→20:09)
[2021-11-17] MEDS: Atovaquone 750 MG/5 ML ORAL.SUSP PO (12:07)
[2021-11-17 12:17] LABS: Tacrolimus Prograf 10.1 mcg/L
[2021-11-17] MEDS: Tacrolimus 1 MG CAPSULE 5 MG G-TUBE ×2 (13:08→20:08)
[2021-11-17] MEDS: Dextrose 5 % and 0.9 % NaCl 1,000 ML 80 ML IVCONT (13:15)
[2021-11-17] MEDS: Sodium Zirconium Cyclosilicate 10 GM POWD.PACK PO (15:53)
[2021-11-17 16:53] LABS: Anion Gap 13 (12-20); Blood Urea Nitrogen 26 mg/dL (9-16); Calcium 7.7 mg/dL (8.4-10.2); Carbon Dioxide 17 mmol/L (22-29); Chloride 106 mmol/L (96-108); Creatinine Clr Calc Pharmacy 49.4; Estimated Glomerular Filt Rate 55; Glucose Random 148 mg/dL (60-115); Sodium 131 mmol/L (135-145)
[2021-11-17 19:48] VITALS: BP 113/58; PULSE 71; RESP 16; TEMP 37.5; O2SAT 100
[2021-11-17] MEDS: cefTRIAXone sodium 1 GM in 0.9 % Sodium Chloride 50 ML IV (20:05)
[2021-11-17] MEDS: 0.9 % Sodium Chloride Flush 3 ML SYRINGE IVFLUSH (20:05)
[2021-11-17] MEDS: predniSONE 5 MG TABLET G-TUBE (20:08)
[2021-11-17 20:38] LABS: Glucose, Whole Blood 96 mg/dL (60-115)
[2021-11-17 23:31] VITALS: BP 123/58; PULSE 71; RESP 16; TEMP 37.3; O2SAT 100
[2021-11-18 03:22] VITALS: BP 109/55; PULSE 71; RESP 16; TEMP 37; O2SAT 98
[2021-11-18] MEDS: Azithromycin 250 MG TABLET G-TUBE (03:23)
[2021-11-18] MEDS: Levothyroxine Sodium 112 MCG TABLET G-TUBE (06:25)
[2021-11-18] MEDS: Dextrose 5 % and 0.9 % NaCl 1,000 ML 80 ML IVCONT (06:25)
[2021-11-18 06:30] LABS: Hematocrit 26.9 % (42.0-52.0); Hemoglobin 9.5 g/dl (14.0-18.0); Mean Corpuscular HGB Conc 35.3 g/dl (31.0-36.0); Mean Corpuscular Hemoglobin 34.1 pg (27.0-33.0); Mean Corpuscular Volume 96.4 fL (80.0-98.0); Mean Platelet Volume 10.1 fL (9.4-12.4); Platelet Count 122 X10*3/uL (160-400); Red Blood Count 2.79 X10*6/uL (4.60-5.80); White Blood Count 4.6 X10*3/uL (4.8-10.8)
[2021-11-18 06:49] LABS: Anion Gap 9 (12-20); Blood Urea Nitrogen 25 mg/dL (9-16); Calcium 7.7 mg/dL (8.4-10.2); Carbon Dioxide 20 mmol/L (22-29); Chloride 109 mmol/L (96-108); Creatinine Clr Calc Pharmacy 50.1; Estimated Glomerular Filt Rate 56; Glucose Random 121 mg/dL (60-115); Potassium 4.3 mmol/L (3.3-5.1); Sodium 134 mmol/L (135-145)
[2021-11-18 07:06] LABS: Glucose, Whole Blood 102 mg/dL (60-115)
[2021-11-18 07:25] VITALS: BP 122/58; PULSE 68; RESP 18; TEMP 36.8; O2SAT 99
[2021-11-18 07:27] LABS: Glucose, Whole Blood 141 mg/dL (60-115)
[2021-11-18 10:20] VITALS: BP 122/58; PULSE 68; O2SAT 99
[2021-11-18] MEDS: Atovaquone 750 MG/5 ML ORAL.SUSP PO (10:23)
[2021-11-18] MEDS: Pseudoephedrine HCL 30 MG TABLET G-TUBE ×2 (10:23→15:03)
[2021-11-18] MEDS: Tacrolimus 1 MG CAPSULE 5 MG G-TUBE (10:23)
[2021-11-18] MEDS: Apixaban 5 MG TABLET G-TUBE (10:24)
[2021-11-18] MEDS: Sertraline HCL 25 MG TABLET G-TUBE (10:28)
--- NOTE | 2021-11-18 10:55 | MHC.SL.SWA ---
Speech Pathologist Impression:Oropharyngeal dysphagia Risk of Aspiration Due to: Medically Fragile Poor PO Intake Dysphasia Diet Status: NASCAR DRIVER to follow M-F w/ trials of solid consistencies P.O. w/advancement of diet as tolerated by PT. Bulk of nutrition at baseline is by PEG. Liquid Consistency and Strategies for Safe Swallow: Liquid Intake Recommendation: Thin Liquid Intake Strategies: Small Sips No Straws Solid Food Consistency: Dietary Recommendations: Clear liquid diet Additional Modifications to Solid Foods: p/o trials of solid consistencies w/ NASCAR DRIVER. Oral Medication Intake: NPO Please contact the pharmacy regarding appropriate crushable or liquid drug formulations that are available whenever modified delivery is recommended. Compensatory Strategies and Precautions to be Taken for Safe Swallow: Sitting Upright (90 deg) No Straw Liquids from Cup Liquids from Spoon Small Bites and Sips Rate of Ingestion Change Supervision While Eating and Drinking for Safe Swallow: PO with NASCAR DRIVER Foods to Avoid: Pt described baseline is small amounts P.O., primarily clear liquids (w/Jellos, Sherbert, Cream of Wheat). Bulk of nutrition @ baseline is by PEG. Swallowing Recommended Treatments: Compens. Strategy Educat. Recommendation for Speech: Inpatient Speech Therapy Comment: Pt has DX from recent [email or web address]: Mild Oralpharyngeal Dysphagia, s/p throat and tongue C/A w/ extensive radiation and surgical treatment (incl. partial tongue resection). Pt started PO in small amounts two weeks ago, working w/ private NASCAR DRIVER from [employer]. MBSS cleared Pt for moist puree/ground solids w/thin liquids, however Pt reports that small amount of PO he was consuming since study has been mostly clear liquids w/ some puree consistency solids (Cream of Wheat, Sherbet), and at baseline was only taking/tolerating very small amts. Pt reports he is still dependent on PEG for bulk of nutrition, was not weaning from feedings prior to this admit. MBSS indicated delayed oral transit, mild to moderate pharyngeal residue after swallow on puree textures, no aspiration. On BSE, similarly, delay in oral transit, mild oral residual on puree after swallow -cleared w/liquid wash, reduced laryngeal transit on swallow. Recommend Pt start on diet similar to what was reported as baseline: Clear liquid, small amounts of PO as tolerated, w/ bulk of nutrition by PEG. NASCAR DRIVER to follow M-F, w/ p.o. trials of solid consistencies, w/ advancement of diet as tolerated by Pt. Recommendation sent by secure text to MD, Wound Specialist, Dietary. Frequency/Duration: Date Range for Service Req: Timeline to reassess: Wrecking Crane Engine Operator Clinican/Clinical Fellow: No Supervisory Statement: I have reviewed and agree with the student/clinical fellow's documentation: N/A Speech Language Pathologist: Marly Krueger M.A., CCC-NASCAR DRIVER
[2021-11-18 11:01] LABS: Glucose, Whole Blood 124 mg/dL (60-115)
[2021-11-18] MEDS: Loperamide HCl Oral Liquid 2 MG/15 ML LIQUID PO (11:03)
[2021-11-18 11:24] VITALS: BP 137/62; PULSE 71; RESP 20; TEMP 36.8; O2SAT 100
--- NOTE | 2021-11-18 11:39 | MHC.CM.PN ---
PT MEDICALLY CLEARED FOR D/C HOME W/RESUMPTION OF [facility], PT'S FOR TRANSPORT.
--- NOTE | 2021-11-18 12:51 | PM.DS ---
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 Patient also reports that he had multiple falls, denies any head strike or loss of consciousness.? Patient reports he has been having nausea and vomiting; and has not been eating well; mentiones that he is on both tube feeds and recently started PO feeds.? Mentions that he has not taken his home medications for the past 2 days. Denies any fever chills cough Denies any nausea vomiting, abdominal discomfort, diarrhea.? Review of all other systems is negative except mentioned above ER course: Per ER team patient exam was nonfocal; CT head and CT C-spine showed no acute process; urinalysis was abnormal consider the UTI; also noted to have sodium of 130; given IV fluids.? Follow-up lab showed hypoglycemia to 51.? Patient orthostatic vitals were positive.? Patient was given stress dose steroids hydrocortisone.? Blood pressure remained fairly stable with systolic in 120s; admitted to the hospital for further management hospital course: patient was admitted for weakness due to poor intake and vomiting complicated by falls, failure to thrive, moderate malnutrition, orthostatic hypotension, hypoglycemia, mild hyponatremia. There was concern pain or check infection, however on review of urinalysis and urine culture this was ruled out. Patient's vomiting resolved and his intake improved, his hypoglycemia resolved, his hyponatremia resolved. He will be discharged home. Time Spent with Patient Time attestation: Total time spent providing and/or coordinating discharge services: Discharge coordination time: Greater than 30 minutes Quality: Safe Use of Opioids Does Pt have an Active Cancer Diagnosis on the Problem List?: Yes Opioid Measure Date for [facility] Report: 10/19/21 Opioid Measure Time for CMS Report: 12:51 Quality: Stroke Does the patient have a stroke diagnosis?: No Physical Exam Vital Signs: Vital Signs: Last Vital Signs Temp 98.2 F 11/18/21 11:24 Pulse 71 11/18/21 11:24 Resp 20 11/18/21 11:24 BP 137/62 11/18/21 11:24 Pulse Ox 100 11/18/21 11:24 BMI result Body Mass Index 21.0 Appearance: Alert.? Oriented X3.? ? cvs: rrr, [id number] , no murmur res: clear to auscultation ,no rhonchii or wheezing abd: no rebound or guarding ,nt, bs present, has g tube -seems clean , no discharge. ext pulses present , no cyanosis . neuro: axo3 , nonfocal. DS: Data Data Completed and Pending Completed studies during hospitalization [Text1]: Procedures Control Bleeding in Gastrointestinal Tract, Via Natural or Artificial Opening Endoscopic (09/27/21) Excision of Stomach, Pylorus, Via Natural or Artificial Opening Endoscopic, Diagnostic (09/27/21) Insertion of Infusion Device into Left Internal Jugular Vein, Percutaneous Approach (09/27/21) Insertion of Infusion Device into Upper Vein, Percutaneous Approach (09/27/21) Transfusion of Nonautologous Red Blood Cells into Peripheral Vein, Percutaneous Approach (09/27/21) Ultrasonography of Left Jugular Veins, Guidance (09/27/21) Labs on day of discharge: Laboratory Results - last 24 hr 11/17/21 11/17/21 11/18/21 16:23 20:34 04:07 WBC RBC Hgb Hct MCV MCH MCHC RDW Plt Count MPV Absolute Nucleated RBC Nucleated RBC % (auto) Sodium 131 L Potassium 5.0 Chloride 106 Carbon Dioxide 17 L Anion Gap 13 BUN 26 H Creatinine 1.32 Estim Creat Clear Calc 49.4 Estimated GFR 55 POC Glucose 96 102 Random Glucose 148 H Calcium 7.7 L 11/18/21 11/18/21 11/18/21 06:10 06:10 07:08 WBC 4.6 L RBC 2.79 L Hgb 9.5 L Hct 26.9 L MCV 96.4 MCH 34.1 H MCHC 35.3 RDW 16.0 Plt Count 122 L MPV 10.1 Absolute Nucleated RBC 0.000 Nucleated RBC % (auto) 0.0 Sodium 134 L Potassium 4.3 Chloride 109 H Carbon Dioxide 20 L Anion Gap 9 L BUN 25 H Creatinine 1.30 Estim Creat Clear Calc 50.1 Estimated GFR 56 POC Glucose 141 H Random Glucose 121 H Calcium 7.7 L 11/18/21 10:56 WBC RBC Hgb Hct MCV MCH MCHC RDW Plt Count MPV Absolute Nucleated RBC Nucleated RBC % (auto) Sodium Potassium Chloride Carbon Dioxide Anion Gap BUN Creatinine Estim Creat Clear Calc Estimated GFR POC Glucose 124 H Random Glucose Calcium Preliminary micro results at discharge 11/16/21 15:05 Blood Culture - Preliminary Blood - Venous No growth after 24 hours. 11/16/21 12:48 Blood Culture - Preliminary Blood - Venous No growth after 24 hours. Discharge Plan Discharge Patient Disposition: Home, Self-Care Discharge Diagnosis: voimtting Referrals: [facility] [Outside] - 1 Day (RESUMPTION OF CARE) Suellen Posada MD [Primary Care Provider] - 1 Week Discharge Medications: Continued prednisone 5 mg tablet 1 tab feeding tube BEDTIME 0RF lorazepam 0.5 mg tablet 1 tab feeding tube TID PRN (Reason: Anxiety) 0RF tacrolimus 1 mg capsule 5 cap feeding tube BID 0RF levothyroxine 112 mcg tablet 1 tab feeding tube DAILY 0RF Eliquis 5 mg tablet 1 tab feeding tube BID 0RF azithromycin 250 mg tablet 1 tab feeding tube MOWEFR 0RF sertraline 25 mg tablet 1 tab feeding tube DAILY 0RF multivitamin Tablet 1 tab feeding tube DAILY 0RF loperamide 2 mg Tablet 2 mg feeding tube BID 0RF sodium chloride 0.65 % Drops 2 drp INTRANASAL QID 0RF atovaquone 750 mg/5 mL Suspension 750 mg PO DAILY 0RF Rx Instructions: must administer with food, preferably a high-fat meal omeprazole 20 mg capsule,delayed release(DR/EC) 20 mg feeding tube BID 0RF pseudoephedrine HCl 30 mg Tablet 30 mg TID 0RF Discharge Orders: Discharge Order (Routine); Ordered 11/18/21 Ordered By: Rigo Miranda Diet: advance to usual diet Activity on Discharge: As tolerated Stand Alone Forms: Patient Portal Discharge page Care Plan Goals: recovery Health Concerns: voimitting Plan of Treatment: advance diet per speech recomendations Assessment: see above
[2021-11-18 15:11] VITALS: BP 141/61; PULSE 68; RESP 17; TEMP 36.2; O2SAT 100
[2021-11-18 16:06] LABS: Glucose, Whole Blood 107 mg/dL (60-115)
== END 2021-11-18 16:00 | disposition home or self-care (01) | DRG 690 ==
LOC: HO.ED 19:30 → HO.EDOVER 20:06 → HO.IMC 11-17 17:00
PROVIDERS: Internal Medicine; Admitting Provider Hospitalist; Emergency Provider Emergency Medicine; PCP Internal Medicine; Visit Provider Internal Medicine
DX: N39.0 Urinary tract infection, site not specified (principal); E87.1 Hypo-osmolality and hyponatremia; Z94.2 Lung transplant status; D84.821 Immunodeficiency due to drugs; E44.0 Moderate protein-calorie malnutrition; Z66 Do not resuscitate; Z20.822 Contact with and (suspected) exposure to COVID-19; I95.1 Orthostatic hypotension; E03.9 Hypothyroidism, unspecified; Z85.810 Personal history of malignant neoplasm of tongue; Z86.711 Personal history of pulmonary embolism; Z92.3 Personal history of irradiation; E16.2 Hypoglycemia, unspecified; E87.5 Hyperkalemia; Z68.21 Body mass index [BMI] 21.0-21.9, adult; Z85.818 Personal history of malignant neoplasm of other sites of lip, oral cavity, and pharynx; Z93.1 Gastrostomy status; Z88.5 Allergy status to narcotic agent; Z79.01 Long term (current) use of anticoagulants; Z79.890 Hormone replacement therapy; Z79.52 Long term (current) use of systemic steroids; Z79.899 Other long term (current) drug therapy
CPT/HCPCS: 36415; 70450; 72125; 80048; 80076; 80197; 81001; 82947; 83605; 83690; 83735; 84439; 84443; 84484; 85025; 85027; 87040; 87086; 87502; 87635; 92526; 92610; 93005; 96361; 96374; 96375; 97110; 97116; 97162; 99285; J0696